=== PATIENT | male | born 1960 | race Caucasian/White ===

== ENCOUNTER 2022-02-21 15:46 | Inpatient (IN) | payer MEDICAID ==
[~2022-02-21] VITALS: Ht 182.9 cm; Wt 61.2 kg
[2022-02-21] VITALS (9 sets, daily range): BP systolic 107–121; BP diastolic 50–68
--- NOTE | 2022-02-21 15:46 | NUR ---
(1540) ON OR ABOUT THIS TIME PATIENT INTUBATED BY DR. BULMARO CALERO; USING A GLIDESCOPE AN ENDOTRACHEAL TUBE #8.0; SUCCESSFUL INTUBATION; CONFIRMATION VIA CO2 DETECTOR (YELLOW); AUSCULTATION BY ERICD TO THE BILATERAL LUNG KHAN APEX TO MID THE ABDOMINAL REGION; CHEST XRAY TO FOLLOW
--- NOTE | 2022-02-21 15:46 | NUR ---
(0842) DR. BULMARO CARTY AT BEDSIDE PATIENT ASSESSMENT
--- NOTE | 2022-02-21 15:46 | NUR ---
(1533) MOTION PICTURE DIRECTOR CALLED TO BEDSIDE ADMITTING DX: SOB (EMR BAGGING) AND POSSIBLE INTUBATION
[2022-02-21] MEDS ORDERED: PROPOFOL 1000 MG/100 ML PREMIX 100 ML IV ONE ×3 (15:50→17:20)
[2022-02-21] MEDS ORDERED: SUCCINYLCHOLINE CHLORIDE 200 MG/10 ML VIAL IVP ONE (15:55)
[2022-02-21] MEDS ORDERED: ETOMIDATE 20 MG/10 ML VIAL IVP ONE (15:55)
[2022-02-21 16:24] LABS: BASOPHILS # (AUTO) 0.1 K/uL (0.00-0.22); BASOPHILS % (AUTO) 0.2 % (0.0-2.0); HEMOGLOBIN 9.1 g/dL (12.0-18.0); PLATELET COUNT (AUTO) 232 K/uL (140-450)
[2022-02-21 16:40] LABS: EOSINOPHILS # (AUTO) 0.1 K/uL (0-0.4); EOSINOPHILS % (AUTO) 0.3 % (0.0-4.0); LYMPHOCYTES % (AUTO) 3.8 % (20.5-51.1); MEAN CORPUSCULAR HEMOGLOBIN 30 pg (27-31); MEAN CORPUSCULAR HGB CONC 34 g/dL (33-37); MEAN CORPUSCULAR VOLUME 89.3 fL (80-94); MONOCYTES # (AUTO) 1.5 K/uL (0.8-1.0); MONOCYTES % (AUTO) 5.7 % (1.7-9.3); NEUTROPHILS # (AUTO) 23.3 K/uL (1.8-7.7); RED BLOOD CELL COUNT(AUTO) 3.03 MIL/uL (4.20-6.10)
[2022-02-21 16:42] LABS: PROTHROMBIN TIME 12.4 secs (10.8-13.4)
[2022-02-21 16:45] LABS: ALBUMIN 2.2 g/dL (3.4-5.0); ANION GAP 18.7 (8-16); CARBON DIOXIDE 25.7 mmol/L (21-32); POTASSIUM 4.4 mmol/L (3.5-5.1); TOTAL BILIRUBIN 3.3 mg/dL (0.0-1.0)
[2022-02-21 16:47] LABS: CREATININE 4.7 mg/dL (0.6-1.3)
[2022-02-21 16:49] LABS: MAGNESIUM 2.4 mg/dL (1.8-2.4); PHOSPHORUS 3.6 mg/dL (2.5-4.9); WHITE BLOOD COUNT (AUTO) 25.9 K/uL (4.8-10.8)
[2022-02-21 16:50] LABS: ACETAMINOPHEN < 0.5 ug/ml (10-30)
[2022-02-21 16:51] LABS: SALICYLATE < 2.8 mg/dL (2.8-20.0)
[2022-02-21] MEDS ORDERED: VANCOMYCIN 1,000 MG in DEXTROSE 5% 250 ML IV ONE (17:00)
[2022-02-21] MEDS ORDERED: PIPERACILLIN/TAZOBACTAM 2.25 GM in DEXTROSE 5% 50 ML IV ONE (17:00)
--- NOTE | 2022-02-21 17:04 | NUR ---
urine collected from bed 01 murguia
[2022-02-21] MEDS ORDERED: POTASSIUM CHLORIDE 10 MEQ TABER PO PRN (17:10)
[2022-02-21] MEDS ORDERED: HYDROcodone/APAP 7.5/325 MG 1 TAB PO PRN (17:10)
[2022-02-21] MEDS ORDERED: ZOLPIDEM 5 MG TAB PO PRN (17:10)
[2022-02-21] MEDS ORDERED: POTASSIUM CHLORIDE 40 MEQ, LIDOCAINE MPF 1% 25 MG in NACL 0.9% 250 ML IV PRN (17:10)
[2022-02-21] MEDS ORDERED: DOCUSATE SODIUM 100 MG GELCAP PO PRN (17:10)
[2022-02-21] MEDS ORDERED: PIPERACILLIN/TAZOBACTAM 2.25 GM VIAL IV ONE (17:16)
[2022-02-21] MEDS ORDERED: DEXTROSE 50% 50 ML SYR IVP PRN ×2 (17:20→21:55)
[2022-02-21] MEDS ORDERED: hydrALAZINE 20 MG/ML VIAL IVP PRN (17:20)
[2022-02-21] MEDS ORDERED: VANCOMYCIN PER PHARMACY MC PRN (17:20)
[2022-02-21] MEDS ORDERED: INSULIN LISPRO SLIDING SCALE 100 UNITS/ML VIAL SUBQ PRN (17:20)
[2022-02-21 17:24] LABS: APPEARANCE,URINE CLEAR (CLEAR); BILIRUBIN,URINE 2+ (NEGATIVE); BLOOD, URINE 1+ (NEGATIVE); COLOR,URINE BROWN (YELLOW); LEUKOCYTE ESTERASE ,URINE TRACE (NEGATIVE); NITRITE, URINE POSITIVE (NEGATIVE); UGLUCOSE TRACE (NEGATIVE)
[2022-02-21 17:37] LABS: MAGNESIUM 2.3 mg/dL (1.8-2.4); PHOSPHORUS 3.6 mg/dL (2.5-4.9)
[2022-02-21 17:43] LABS: RBC,URINE 0-5 /HPF (0-5); WBC,URINE 0-5 /HPF (0-5); YEAST,URINE Few /HPF (None Seen)
--- NOTE | 2022-02-21 18:15 | NUR ---
FAMILY AT BEDSIDE
--- NOTE | 2022-02-21 19:01 | NUR ---
61Y.O. M BIBA C/O SOB/AGANAL BREATHING. PT BEING BAGGED ON ARRIVAL 15L. GCS:3. PER FAMILY PT WAS TESTED FOR COVID; UNKNOWN RESULT. PT HAS DIALYSIS MWF. PT UNRESPONSIVE ON ARRIVAL. SKIN WAS COOL PALE AND STICKY. PICC R UPPER ARM. BS: 186 PER EMS. A&OX0, SKIN HAS BRUISING AND PRESSURE INJURIES, VITALS STABLE AT THIS TIME, AND ON BED REST. NKA HX: HTN, DM, RENAL FAILURE (ERSD)
--- NOTE | 2022-02-21 19:48 | NUR ---
Patient will be admitted to care of DR. COYLE. Admited to ICU. Will go to BED 3. Belongings list completed. Report to JOSIAS.
--- NOTE | 2022-02-21 19:50 | NUR ---
RECEIVED REPORT FROM ER NURSE (VERONICA). PATIENT ARRIVED ON GURNEY, INTUBATED (ETT TO VENT) ON PROPOFOL DRIP AT 25MCG/MIN. PATIENT ALSO WITH OG TUBE. PATIENT HAS ACBA IN PLACE. PATIENT WITH PICC LINE CHAD, MONY CATH RIGHT UPPER CHEST WALL, AND PERIPHERAL IV, 18G, LEFT AC. HAS SACRAL PRESSURE ULCER, AND LEFT HEEL ULCER. CURRENT VENT SETTINGS: AC/VC, FIO2 = 80%, VT = 500, R = 16, PEEP = 5.
[2022-02-21] MEDS: ALBUTEROL SULFATE/IPRATROPIU 3 ML SOL IH SCH (20:29)
[2022-02-21] MEDS ORDERED: VANCOMYCIN 1,000 MG VIAL ONE (20:54)
[2022-02-21] MEDS ORDERED: PIPERACILLIN/TAZOBACTAM 2.25 GM in DEXTROSE 5% 50 ML IV SCH (21:00)
--- NOTE | 2022-02-21 21:10 | NUR ---
FAMILY AT BEDSIDE, ALL QUESTIONS ANSWERED DTGLENN Frederick: [phone] (CELL) : JAMISON LÓPEZ, (CELL)
[2022-02-21] MEDS: BLOOD GLUCOSE MONITORING 1 DEV DEV FS SCH (21:29)
--- NOTE | 2022-02-21 22:15 | NUR ---
RECEIVED CALL FROM LAB; ORDERED COVID - PCR TEST. DUE TO NEW COVID TEST BEING REQUESTED FOR PATIENT; HE WAS TRANSFERRED TO ICU-8 AND IS LISTED PUI UNTIL RESULTS COME BACK PATIENT HAD NEGATIVE COVID (RAPID TEST) IN ER. SWABBED PATIENT FOR UPDATED COVID, AND SPECIMEN WAS TAKEN TO THE LAB FOR PICK-UP AND TRANSPORT TO OUTSIDE LAB.
[2022-02-21] MEDS: ALBUTEROL SULFATE/IPRATROPIU 3 ML SOL IH PRN (23:06)
--- NOTE | 2022-02-21 23:21 | NUR ---
ekg performed and reported to rn copy placed in chart copy handed to rn
--- NOTE | 2022-02-21 23:30 | NUR ---
RT PERFORMED EKG AT BEDSIDE = SHOWS NORMAL SINUS RHYTHM, WITH LEFT BUNDLE BRANCH BLOCK
[2022-02-22] VITALS (30 sets, daily range): BP systolic 95–133; BP diastolic 49–61
--- NOTE | 2022-02-22 | NUR ---
PER EMAR, PATIENT WAS DUE FOR ZOSYN 2.25GM AT 2100; HOWEVER PER EMAR DOCUMENTATION, MEDICATION WAS LAST GIVEN AT 1754. MEDICATION IS SCHEDULED FOR Q8HRS. PHONE CALL PLACED TO [facility] AND SPOKE WITH PHARMACISTCIARA TO REQUEST A TIME ADJUSTMENT. NEXT DOSE IS NOW DUE AT 0200. CHANGE TO BE REFLECTED IN EMAR
[2022-02-22] MEDS ORDERED: PIPERACILLIN/TAZOBACTAM 2.25 GM VIAL IV ONE (02:11)
[2022-02-22] MEDS: PIPERACILLIN/TAZOBACTAM 2.25 GM in DEXTROSE 5% 50 ML IV SCH ×3 (02:24→17:55)
--- NOTE | 2022-02-22 04:49 | NUR ---
RT AT BEDSIDE VENT SETTINGS ADJUSTED FIO2 IS NOW 50%
--- NOTE | 2022-02-22 05:50 | NUR ---
RECEIVED CALL FROM DR. HAIRSTON; PROVIDED UPDATE ON PATIENT'S CURRENT STATUS; NO NEW ORDERS PROVIDED
[2022-02-22 07:15] LABS: BASOPHILS # (AUTO) 0.1 K/uL (0.00-0.22); BASOPHILS % (AUTO) 0.2 % (0.0-2.0); EOSINOPHILS # (AUTO) 0.1 K/uL (0-0.4); EOSINOPHILS % (AUTO) 0.4 % (0.0-4.0); HEMATOCRIT 29.5 % (36-52); HEMOGLOBIN 9.8 g/dL (12.0-18.0); LYMPHOCYTES # (AUTO) 1.1 K/uL (2.0-11.5); LYMPHOCYTES % (AUTO) 3.2 % (20.5-51.1); MEAN CORPUSCULAR HEMOGLOBIN 30 pg (27-31); MEAN CORPUSCULAR HGB CONC 33 g/dL (33-37); MEAN CORPUSCULAR VOLUME 89.5 fL (80-94); MONOCYTES # (AUTO) 1.5 K/uL (0.8-1.0); MONOCYTES % (AUTO) 4.4 % (1.7-9.3); NEUTROPHILS # (AUTO) 30.9 K/uL (1.8-7.7); NEUTROPHILS % (AUTO) 91.8 % (42.2-75.2); PLATELET COUNT (AUTO) 254 K/uL (140-450)
--- NOTE | 2022-02-22 07:20 | NUR ---
RECEIVED PT ON ACVC TV500, RR16, +5, 50%. WHEELS LOCKED AND PLUGGED INTO RED OUTLET, ALARMS ARE SET AND AUDIBLE. PT RESTING COMFORTABLY.
[2022-02-22] MEDS: ALBUTEROL SULFATE/IPRATROPIU 3 ML SOL IH SCH ×3 (07:21→19:00)
[2022-02-22 07:22] LABS: WHITE BLOOD COUNT (AUTO) 33.7 K/uL (4.8-10.8)
--- NOTE | 2022-02-22 07:25 | NUR ---
RECEIVED REPORT FROM JOEL KENNEL HELPER RN, FOR CONTINUITY OF CARE. PT A&OX0, SEDATED. PUPILS SLUGGISH RESPONSE TO LIGHT. ETT TO VENT, ACVC FIO2 50%, VT 500, PEEP 5. SR ON MONITOR. PICC TO CHAD INFUSING PROPOFOL AT 25 MCG/KG/MIN. 18G IV TO LAC, SALINE LOCK. OGT IN PLACE, CLAMPED. BOWEL SOUNDS ACTIVE. F/C TO GRAVITY, OLIGURIA. GENERALIZED WEAKNESS. SOFT WRIST RESTRAINTS TO BUE NO S/S OF INJURY. DROPLET PRECAUTION FOR COVID PUI. BED IN LOWEST POSITION, CALL LIGHT WITHIN REACH.
--- NOTE | 2022-02-22 07:27 | NUR ---
ENDORSED PATIENT TO DAY SHIFT (NEVIN GILLESPIE)
[2022-02-22 07:28] LABS: ANION GAP 18.3 (8-16); CARBON DIOXIDE 24.7 mmol/L (21-32)
[2022-02-22] MEDS: BLOOD GLUCOSE MONITORING 1 DEV DEV FS SCH ×5 (07:30→21:12)
[2022-02-22 08:28] LABS: CREATININE 5.2 mg/dL (0.6-1.3)
[2022-02-22] MEDS: PANTOPRAZOLE 40 MG TABEC PO SCH (08:29)
[2022-02-22] MEDS: lisinopriL 20 MG TAB PO SCH (08:29)
[2022-02-22] MEDS: VIT-B COMP/VIT-C/FOLIC ACID 1 TAB PO SCH (08:29)
[2022-02-22] MEDS: amLODIPine 5 MG TAB PO SCH (08:30)
[2022-02-22] MEDS: carvediloL 12.5 MG TAB PO SCH ×2 (08:30→21:12)
[2022-02-22] MEDS: ASPIRIN 81 MG TAB.CHEW PO SCH (08:30)
[2022-02-22] MEDS: hydrALAZINE 25 MG TAB PO SCH ×2 (08:30→21:12)
--- NOTE | 2022-02-22 09:12 | NUR ---
PATIENT HAS BEEN SCREENED AND CATEGORIZED HIGH NUTRITION RISK. PATIENT WILL BE SEEN WITHIN 1-2 DAYS OF ADMISSION. REFERRAL RECEIVED FOR WOUNDS/PRESSURE INJURY AND MALNUTRITION MINH GARCIA RD
--- NOTE | 2022-02-22 09:30 | NUR ---
SEEN AND EXAMINED BY DR. COYLE.
[2022-02-22] MEDS ORDERED: THERAHONEY GEL 42.5 GM TP PRN (11:25)
--- NOTE | 2022-02-22 12:00 | NUR ---
DR. DRIVER AT BEDSIDE. HD ORDERS RECEIVED.
[2022-02-22] MEDS: THERAHONEY GEL 42.5 GM TP SCH (13:00)
[2022-02-22] MEDS: GAUZE TP SCH (13:00)
--- NOTE | 2022-02-22 13:57 | NUR ---
02/22/22 RD INITIAL ASSESSMENT COMPLETED PLEASE REFER TO NUTRITION ASSESSMENT UNDER CARE ACTIVITY FOR ESTIMATED NUTRITIONAL NEEDS. 1. WHEN/IF MEDICALLY APPROPRIATE TO INITIATE TF, RECOMMEND NEPRO CARBSTEADY WITH A GOAL RATE OF 50 ML/HR WITH PROSOURCE TID -FWF: 50 ML Q8H OR PER MD -START AT 20 ML/HR AND INCREASE BY 10 ML Q4H TOLERATED -WITH PROSOURCE TID, PT WILL RECEIVE ~94% ESTIMATED KCAL AND 100% ESTIMATED PROTEIN NEEDS; ADEQUATE 2. IF EXTUBATED, RECOMMEND RENAL DIET WITH NEPRO BID 3. RD TO FOLLOW-UP 2-3 DAYS, HIGH RISK MINH GARCIA RD
--- NOTE | 2022-02-22 14:20 | NUR ---
FAMILY AT BEDSIDE. UPDATED ON POC. NO FURTHER QUESTIONS AT THIS TIME.
--- NOTE | 2022-02-22 14:40 | NUR ---
WOUND CARE EVALUATION NOTE: SKIN ASSESSMENT DONE WITH THIS PT ADMITTED WITH INITIAL DX SOB. PAST MEDICAL HX INCLUDES ESRD on HD (MWF), DM2 AND HTN. PT ADMITTED WITH PRESSURE INJURY STAGE 3 TO SACRAL AND UN-STAGEABLE TO LEFT HEEL. ALL ABOVE INFORMATION OBTAINED FROM ADMISSION H&P. PT IS INTUBATED, TF, SKIN IS WARM AND DRY, BLE NO HAIR GROWTH, +1 EDEMA. DORSAL PEDAL PULSES PRESENT AND NORMAL. CAPILLARY REFILLED <2 SEC. X 10 TOES. F/C PATENT WITH SMALL AMOUNT TRAMAINE COLOR URINE OUT PUT OBSERVED. PLAN OF CARE DISCUSSED WITH PRIMARY RN. POC DISCUSSED WITH DR. COYLE AND REQUEST IN HOUSE PODIATRY CONSULT. INTEGUMENTARY: -INCONTINENT ASSOCIATE DERMATITIS (IAD) TO: B/L GROINS, INNER THIGH AND POSTERIOR THIGH TO SCROTAL, SKIN REDNESS, PEELING -PRESSURE INJURY STAGE 3, SACROCOCCYX 5X2X0.3CM, BED IS RED 100% GRANULATING TISSUE, MOIST, NO ODOR, CHARLENE-WOUND SKIN MOIST, HEALING SCAR TISSUE, SURROUNDING NON-BLANCHABLE REDNESS INDICATED FURTHER DAMAGE - PRESSURE INJURY UN-STAGEABLE, LEFT HEEL 5X4CM WOUND BED IS RED 100% BROWN/BLACK SLOUGH TISSUE, SMALL AMOUNT PURULRNT DRAINAGE, MILD ODOR, ENTIRE CHARLENE WOUND MUSHY, DENUDED SKIN WITH SURROUNDING DTI [id number] INDICATED FURTHER DAMAGE RECOMMENDATIONS: -WOUND CX TO SACRAL AND LEFT HEEL -APPLY HEEL RAISERS AND OFFLOAD HEELS WITH PILLOWS -LEFT HEEL APPLY MOIST BETADINE [id number], COVER WITH DRY DRESSING AND WRAP WITH KERLIX ROLLS DAILY AND PRN IF SOILING -CLEANSE SACRAL WOUND WITH NS, PAT DRY, APPLY THERAHONEY GEL TO WOUND BED AND COVER WITH DRY DRESSING DAILY AND PRN IF SOILING. -POSITIONING: TURN AND REPOSITION PATIENT Q 2H OR SOONER USE PILLOWS TO KEEP BONY PROMINENCES FROM DIRECT CONTACT WITH SURFACES USE REPOSITIONING WEDGES TO PROVIDE 30-DEGREE ANGLE FOR SIDE LYING POSITIONS OFFLOADING OR FOAM DRESSING TO ALL TUBING TO PREVENT MEDICAL DEVICES RELATED PRESSURE INJURY -RE-EVALUATING AND MANAGING INCONTINENCE MONITOR SKIN CONDITION DURING POSITION CHANGE DO NOT MASSAGE REDNESS, BONY PROMINENCES FREQUENT CHARLENE-CARE AND PROVIDE BARRIER CREAMS PRN IF SOILING MOISTURE CONTROL BY OFFER BED LUGO/URINAL /ABSORBENT PAD TO WICK AND HOLD MOISTURE KEEP SKIN DRY AND PROTECT FROM FRICTION -MANAGE FRICTION/SHEAR/MOBILITY KEEP HOB AT THE LOWEST LEVEL OF ELEVATION NO MORE THAN 30 DEGREE UNLESS OTHERWISE CONTRAINDICATED USE LIFT SHEET OR TRANSFER DEVICE TO MOVE PATIENT AND PREVENT LATERAL SHEER. PROTECT HEELS, ELBOWS BONY PROMINENCES WITH SKIN BERRIES OR FOAM DRESSING IF EXPOSED TO FRICTION OFFLOAD BILATERAL HEELS BY PLACING PILLOWS UNDER CALVES AT ALL TIMES, UNLESS OTHERWISE CONTRAINDICATED -PRESSURE REDISTRIBUTION SURFACE THERAPY LU ISOFLEX MATTRESS -NUTRITION: PLEASE FOLLOW RD RECOMMENDATIONS AND OFFER NUTRITION SUPPLEMENTS IF ORDERED.
--- NOTE | 2022-02-22 14:41 | NUR ---
DAUGHTER GLENN VISIT OUTSIDE OF PT. RM. PT. WOUND HX OBTAINED FROM DAUGHTER, PER DAUGHTER LEFT HEEL HX OF DEBRIDEMENT AT [facility] BY DR. PORTIA RYDER AND PT. HAS JUST FINISHED A COURSE OF IV ANTIBIOTIC RECENTLY, PER DAUGHTER SHE PROVIDES WOUND CARE AT HOME BUT NO SANTYLE OINTMENT AVAILABLE DUE TO PRICING AND LEFT HEEL /SACRAL WOUNDS DOES"T REALLY HEAL WELL. TREATMENT PLAN DISCUSSED AND AGREEABLE WITH KASSIE ALEXANDER. POC DISCUSSED WITH DR. COYLE, ALL ABOVE INFORMATION DISCUSSED AND RECOMMEND PODIATRY CONSULT. POC DISCUSSED WITH PRIMARY RN CELSO.
[2022-02-22] MEDS: EPOETIN ALFA-EPBX 10,000 UNITS/ML VIAL SUBQ SCH (14:57)
--- NOTE | 2022-02-22 17:25 | NUR ---
DIALYSIS FINISHED. REMOVED 1.3 L. PT TOLERATED WELL.
--- NOTE | 2022-02-22 18:38 | NUR ---
SEEN AND EXAMINED BY DR. BENTON FOR L FOOT ULCER. ORDERED TO CLEANSE WITH IODINE, WRAP WITH GAUZE, AND ELEVATE HEEL ON PILLOW TO OFFLOAD PRESSURE.
--- NOTE | 2022-02-22 18:48 | NUR ---
XRAY AT BEDSIDE FOR FOOT XRAY.
--- NOTE | 2022-02-22 19:15 | NUR ---
ENDORSED REPORT TO CORPORATE EXECUTIVE NEVIN NEWTON FOR CONTINUITY OF CARE.
--- NOTE | 2022-02-22 19:30 | NUR ---
RECEIVED REPORT FROM CELSO. PT IN STATED CONDITION PT WAS INTUBATED IN THE ED . HE'S SEDATED PRESENTLY ON PROPOFOL @25MCG/KG.HE IS AT A RASS -4 PROPOFOL IS FINISHED.IT WAS A ONE TIME ORDER AND HAD TO BE REORDERED BY MAHSA QUIÑONES NURSE. HE HAS A CHAD PICC LINE AND A LAC 18 GUAGE. HE HAS NS INFUSING AT A KVO RATE. HE IS TOLERATING THE VENT WELL. HE IS IN SOFT WRIST RESTRAINTS. HE HAS A CABA CATH IN PLACE WITH NO OUTPUT. HE HAD DIALYSIS ON 02/21/22 AND CAME TO THE ED S/P DIALYSIS DUE TO AGONAL BREATHING. HE WAS ENTUBATED INN THE ED TO PROTECT HIS AIRWAY.
[2022-02-22] MEDS: PROPOFOL 1000 MG/100 ML PREMIX 100 ML IV PRN (21:00)
--- NOTE | 2022-02-22 21:00 | NUR ---
PROPOFOL WAS STARTED AT 15MCG AND PT IS AT A RASS OF -3.
--- NOTE | 2022-02-22 23:30 | NUR ---
PER RT PT IS NOW AT FIO2 28% AND TOLERATING THE CHANGE WELL.
[2022-02-23] VITALS (33 sets, daily range): BP systolic 104–130; BP diastolic 47–87
[2022-02-23] MEDS: PIPERACILLIN/TAZOBACTAM 2.25 GM in DEXTROSE 5% 50 ML IV SCH ×3 (02:00→18:27)
[2022-02-23] MEDS ORDERED: EPINEPHrine PFS 0.1 MG/ML SYR IVP ONE (06:05)
[2022-02-23] MEDS ORDERED: CODE BLUE PARTICIPANT 1 EA MISC MC ONE (06:05)
--- NOTE | 2022-02-23 06:07 | NUR ---
PT HAD AN EPISODE,HIS R\HEART RATE DROPPED TO 32. AND THE PT HAD A BLUISH HEW ABOUT HIS FACE . HE OPENED HIS EYES AND THEY ROLLED BACK AND HE SLUMPED.CODE WAS CALLED AND HE RERTURNED TO HR0F IOO AFTER CPR AND 1 ROUND OF EPPY.
[2022-02-23 06:18] LABS: HEMOGLOBIN 9.7 g/dL (12.0-18.0); MEAN CORPUSCULAR HEMOGLOBIN 30 pg (27-31); MEAN CORPUSCULAR HGB CONC 33 g/dL (33-37); MEAN CORPUSCULAR VOLUME 88.8 fL (80-94); PLATELET COUNT (AUTO) 287 K/uL (140-450); RED BLOOD CELL COUNT(AUTO) 3.27 MIL/uL (4.20-6.10)
[2022-02-23 06:21] LABS: ANION GAP 15.8 (8-16); CARBON DIOXIDE 24.2 mmol/L (21-32); CREATININE 3.5 mg/dL (0.6-1.3)
[2022-02-23 06:37] LABS: WHITE BLOOD COUNT (AUTO) 25.8 K/uL (4.8-10.8)
[2022-02-23 06:56] LABS: EOSINOPHILS % (MANUAL) 1 % (0-4); LYMPHOCYTES % (MANUAL) 5 % (20-46); MONOCYTES % (MANUAL) 2 % (5-12)
--- NOTE | 2022-02-23 07:30 | NUR ---
RECEIVED REPORT FROM NIGHT NEVIN NEWTON FOR CONTINUITY OF CARE. A&OX0, SEDATED ON PROPOFOL. ETT TO VENT FIO2 26%, VT 500, RR 16, PEEP 5. PICC TO CHAD INFUSING PROPOFOL AT 15 MCG/KG/MIN. 18G IV TO LAC, SALINE LOCK. OGT CLAMPED. BOWEL SOUNDS ACTIVE. F/C TO GRAVITY, NO URINE OUTPUT. GENERALIZED WEAKNESS. STANDARD PRECAUTION. CALL LIGHT WITHIN REACH. BED IN LOWEST POSITION.
[2022-02-23 07:46] LABS: BASOPHILS # (AUTO) 0.1 K/uL (0.00-0.22); BASOPHILS % (AUTO) 0.2 % (0.0-2.0); EOSINOPHILS # (AUTO) 0.3 K/uL (0-0.4); EOSINOPHILS % (AUTO) 1.3 % (0.0-4.0); HEMATOCRIT 30.1 % (36-52); HEMOGLOBIN 9.9 g/dL (12.0-18.0); LYMPHOCYTES # (AUTO) 0.7 K/uL (2.0-11.5); LYMPHOCYTES % (AUTO) 2.8 % (20.5-51.1); MEAN CORPUSCULAR HEMOGLOBIN 30 pg (27-31); MEAN CORPUSCULAR HGB CONC 33 g/dL (33-37); MONOCYTES # (AUTO) 1.4 K/uL (0.8-1.0); MONOCYTES % (AUTO) 5.4 % (1.7-9.3); NEUTROPHILS # (AUTO) 23.7 K/uL (1.8-7.7); NEUTROPHILS % (AUTO) 90.3 % (42.2-75.2); PLATELET COUNT (AUTO) 276 K/uL (140-450); RED BLOOD CELL COUNT(AUTO) 3.35 MIL/uL (4.20-6.10); RED CELL DISTRIBUTION WIDTH 15.7 % (11.6-13.7)
[2022-02-23 07:50] LABS: WHITE BLOOD COUNT (AUTO) 26.3 K/uL (4.8-10.8)
[2022-02-23 07:53] LABS: ANION GAP 17.7 (8-16); CARBON DIOXIDE 23.5 mmol/L (21-32); CREATININE 3.8 mg/dL (0.6-1.3); POTASSIUM 4.2 mmol/L (3.5-5.1)
[2022-02-23] MEDS: BLOOD GLUCOSE MONITORING 1 DEV DEV FS SCH ×4 (08:02→21:29)
[2022-02-23] MEDS: ASPIRIN 81 MG TAB.CHEW PO SCH (08:12)
[2022-02-23] MEDS: amLODIPine 5 MG TAB PO SCH (08:12)
[2022-02-23] MEDS: PANTOPRAZOLE 40 MG TABEC PO SCH (08:12)
[2022-02-23] MEDS: carvediloL 12.5 MG TAB PO SCH ×2 (08:12→21:31)
[2022-02-23] MEDS: VIT-B COMP/VIT-C/FOLIC ACID 1 TAB PO SCH (08:12)
[2022-02-23] MEDS: lisinopriL 20 MG TAB PO SCH (08:13)
[2022-02-23] MEDS: hydrALAZINE 25 MG TAB PO SCH ×2 (08:13→21:31)
[2022-02-23] MEDS: ALBUTEROL SULFATE/IPRATROPIU 3 ML SOL IH SCH ×3 (08:45→19:18)
--- NOTE | 2022-02-23 08:54 | NUR ---
LAC IV FOUND TO BE REMOVED D/T PT MOVING AROUND. INSERTED 20G IV TO L FOREARM. PATENT, INTACT. SALINE LOCK.
[2022-02-23] MEDS ORDERED: VANCOMYCIN 1,000 MG in DEXTROSE 5% 250 ML IV SCH (10:00)
[2022-02-23 10:59] LABS: ALBUMIN 1.9 g/dL (3.4-5.0); BILIRUBIN,DIRECT 1.7 mg/dL (0.0-0.3); TOTAL BILIRUBIN 2.5 mg/dL (0.0-1.0)
--- NOTE | 2022-02-23 11:50 | NUR ---
PT TRANSFERRED TO CT FOR ABD/PELVIS CT W/O CONTRAST.
--- NOTE | 2022-02-23 11:59 | NUR ---
PT BACK ON UNIT. VSS.
--- NOTE | 2022-02-23 12:30 | NUR ---
SACRAL WOUND CLEANSED WITH NS SPRAY AND APPLIED THERA-HONEY AND FOAM DRESSING. FOOT WOUND CLEANSED WITH IODINE AND WRAPPED IN GAUZE DRESSING ORDERED BY DR. BENTON. BOTH SACRAL DRESSING AND FOOT DRESSING CHANGED. PT TURNED AND REPOSITIONED WITH BIBI ROONEY. ALL COMFORT NEEDS MET AT THIS TIME.
[2022-02-23] MEDS: GAUZE TP SCH (13:00)
[2022-02-23] MEDS: THERAHONEY GEL 42.5 GM TP SCH (13:00)
--- NOTE | 2022-02-23 13:25 | NUR ---
DAUGHTER GLENN AT BEDSIDE. UPDATED ON POC. NO FURTHER QUESTIONS AT THIS TIME.
--- NOTE | 2022-02-23 14:00 | NUR ---
PT IS ABLE TO FOLLOW COMMANDS WHEN SPOKEN TO IN [place] ONLY. 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 PT ABLE TO RESPOND APPROPRIATELY TO YES OR NO QUESTIONS IN ECUADOREAN. SQUEEZES HAND WHEN ASKED.
[2022-02-23] MEDS: PROPOFOL 1000 MG/100 ML PREMIX 100 ML IV PRN (18:30)
--- NOTE | 2022-02-23 19:15 | NUR ---
ENDORSED REPORT TO NIGHT NEVIN NEWTON FOR CONTINUITY OF CARE.
--- NOTE | 2022-02-23 19:30 | NUR ---
RECEIVED REPORT FROM CELSO ROONEY. PT RECEIVED IN STATED CONDITION. PT'S DAUGHTER AT THE BEDSIDE. WHE SHE SPEAKS TO HER FATHER IN [place] HE FOLLOWS COMMANDS. PT IS STRUGGLING WITH THE RESTRAINTS; TRYING TO REACH THE ETT TUBE. HE REMAINS ON THE PRIOR VENT SETTING FIO2 26%. PEEP5, TIDAL VOL 500 AND A RATE OF 16 NO DISTRESS NOTE .
--- NOTE | 2022-02-23 21:00 | NUR ---
DAUGHTER STATES HER FATHER IS ITCHING AND HE'S BLIND FOR THE PASS [address] MILLS WAS TEXT AND INFORMED., HE GAVE ORDERS FOT THE ITCHING. PROPOFOL TUBING CHANGED PER PROTOCOL.
[2022-02-23] MEDS ORDERED: diphenhydrAMINE 50 MG/ML VIAL IVP PRN (22:25)
[2022-02-24] VITALS (29 sets, daily range): BP systolic 116–147; BP diastolic 52–69
[2022-02-24] MEDS: PIPERACILLIN/TAZOBACTAM 2.25 GM in DEXTROSE 5% 50 ML IV SCH ×2 (01:56→11:12)
[2022-02-24 05:45] LABS: BASOPHILS # (AUTO) 0.1 K/uL (0.00-0.22); BASOPHILS % (AUTO) 0.3 % (0.0-2.0); EOSINOPHILS # (AUTO) 0.5 K/uL (0-0.4); EOSINOPHILS % (AUTO) 2.6 % (0.0-4.0); HEMATOCRIT 29.4 % (36-52); HEMOGLOBIN 9.8 g/dL (12.0-18.0); LYMPHOCYTES # (AUTO) 0.9 K/uL (2.0-11.5); LYMPHOCYTES % (AUTO) 4.7 % (20.5-51.1); MEAN CORPUSCULAR HEMOGLOBIN 30 pg (27-31); MEAN CORPUSCULAR HGB CONC 33 g/dL (33-37); MEAN CORPUSCULAR VOLUME 89.3 fL (80-94); MONOCYTES # (AUTO) 1.3 K/uL (0.8-1.0); MONOCYTES % (AUTO) 6.8 % (1.7-9.3); NEUTROPHILS # (AUTO) 16.4 K/uL (1.8-7.7); PLATELET COUNT (AUTO) 319 K/uL (140-450); RED CELL DISTRIBUTION WIDTH 15.7 % (11.6-13.7); WHITE BLOOD COUNT (AUTO) 19.1 K/uL (4.8-10.8)
[2022-02-24 06:35] LABS: ANION GAP 19.4 (8-16); CARBON DIOXIDE 21.8 mmol/L (21-32); POTASSIUM 4.2 mmol/L (3.5-5.1)
[2022-02-24 06:38] LABS: NEUTROPHILS % (AUTO) 85.6 % (42.2-75.2)
[2022-02-24 06:41] LABS: CREATININE 4.6 mg/dL (0.6-1.3)
--- NOTE | 2022-02-24 07:25 | NUR ---
RECEIVED REPORT FROM PHOTOGRAPHER LAMAR RN FOR CONTINUITY OF CARE. PT ABLE TO ANSWER YES OR NO QUESTIONS AND GESTURE TO MAKE NEEDS KNOWN. SEDATED ON PROPOFOL. ETT TO VENT FIO2 26%, VT 500, RR 16, PEEP 5. RESPIRATIONS EVEN AND UNLABORED. SINGLE LUMEN PICC TO CHAD INFUSING PROPOFOL AT 15 MCG/KG/MIN. PATENT IV IN L WRIST INFUSING NS TKO. OGT IS IN PLACE AND CLAMPED. MODERATE WEAKNESS. BILATERAL SOFT WRIST RESTRAINTS, NO S/S OF INJURY. STANDARD PRECAUTION. CALL LIGHT WITHIN REACH, BED IN LOWEST POSITION.
[2022-02-24] MEDS: ALBUTEROL SULFATE/IPRATROPIU 3 ML SOL IH SCH ×3 (07:33→19:40)
--- NOTE | 2022-02-24 07:35 | NUR ---
PATIENT EXTUBATION DONE. VITALS STABLE, 02 AT 100% AT THIS TIME.
[2022-02-24] MEDS: BLOOD GLUCOSE MONITORING 1 DEV DEV FS SCH ×4 (07:40→21:00)
[2022-02-24] MEDS: lisinopriL 20 MG TAB PO SCH (08:17)
[2022-02-24] MEDS: ASPIRIN 81 MG TAB.CHEW PO SCH (08:18)
[2022-02-24] MEDS: hydrALAZINE 25 MG TAB PO SCH (08:18)
[2022-02-24] MEDS: VIT-B COMP/VIT-C/FOLIC ACID 1 TAB PO SCH (08:18)
[2022-02-24] MEDS: amLODIPine 5 MG TAB PO SCH (08:18)
[2022-02-24] MEDS: carvediloL 12.5 MG TAB PO SCH (08:19)
[2022-02-24] MEDS: PANTOPRAZOLE 40 MG TABEC PO SCH (08:19)
--- NOTE | 2022-02-24 09:15 | NUR ---
DR. COYLE AT BEDSIDE. ORDERS RECEIVED.
[2022-02-24] MEDS: PROPOFOL 1000 MG/100 ML PREMIX 100 ML IV PRN (11:29)
--- NOTE | 2022-02-24 11:30 | NUR ---
DAUGHTER AT BEDSIDE. UPDATED ON PLAN OF CARE.
--- NOTE | 2022-02-24 12:15 | NUR ---
SEEN AND EXAMINED BY DR. LOVING AT BEDSIDE.
--- NOTE | 2022-02-24 12:30 | NUR ---
SEEN AND EXAMINED BY DR. FOX AT BEDSIDE. ORDERS FOR HD TOMORROW RECEIVED.
[2022-02-24] MEDS ORDERED: hydrALAZINE 25 MG TAB PO SCH (13:00)
[2022-02-24] MEDS: THERAHONEY GEL 42.5 GM TP SCH (13:15)
[2022-02-24] MEDS: GAUZE TP SCH (13:15)
--- NOTE | 2022-02-24 15:00 | NUR ---
SEEN AND EXAMINED BY DR. HAIRSTON. NO NEW ORDERS.
--- NOTE | 2022-02-24 15:35 | NUR ---
PT TRANSFERRED TO CT WITH MONITOR.
--- NOTE | 2022-02-24 15:45 | NUR ---
PT BACK ON UNIT. VSS.
[2022-02-24] MEDS ORDERED: GENTAMICIN PER PHARMACY MC PRN (15:50)
--- NOTE | 2022-02-24 16:11 | NUR ---
STARTED TUBE FEEDING NEPRO AT 10 ML/HR WITH 150ML WATER FLUSH Q6H PER DR. COYLE. GOAL IS 60 ML/HR.
[2022-02-24] MEDS ORDERED: GENTAMICIN 100 MG in DEXTROSE 5% 100 ML IV SCH (17:00)
--- NOTE | 2022-02-24 17:22 | NUR ---
PT PLACED ON SBT CPAP 5 PS 10 AND FIO2 26% PER . NURSE AWARE. VENT ALARMS ON AND FUNCTIONING. WILL CONTINUE TO MONITOR.
[2022-02-24] MEDS ORDERED: GENTAMICIN 80 MG/2 ML VIAL ONE (17:46)
--- NOTE | 2022-02-24 18:21 | NUR ---
SPOKE TO AND UPDATED PHYSICIAN ON WEANING PARAMETERS AND STATUS. PHYSICIAN STATES TO EXTUBATE PT AT THIS TIME.
--- NOTE | 2022-02-24 18:21 | NUR ---
WEANING PARAMETERS NIF -[id number], VC 749ml, RSBI RANGING FROM 45-50, [id number]. PT ABLE TO FOLLOW SIMPLE COMMANDS. NURSE AWARE.
--- NOTE | 2022-02-24 18:40 | NUR ---
CALLED DAUGHTER, GLENN, TO UPDATE ON PT STATUS REGARDING CPAP TRIALS. NO FURTHER QUESTIONS AT THIS TIME.
--- NOTE | 2022-02-24 19:15 | NUR ---
ENDORSED REPORT TO TIRE CHANGER RN VAN FOR CONTINUITY OF CARE.
--- NOTE | 2022-02-24 19:29 | NUR ---
RECEIVED REPORT FROM AM SHIFT NURSE JOSE MIGUEL
--- NOTE | 2022-02-24 19:40 | NUR ---
PT EXTUBATED TO 2LN/C AT THIS TIME. NO STRIDOR B/S CLEAR. SCHEDULED HHN TX GIVEN AT THIS TIME. PT HAS SLIGHT DISCOMFORT OF THE THROAT. WILL MONITOR FOR COOL AEROSOL IF NEEDED.
--- NOTE | 2022-02-24 20:07 | NUR ---
CALLED AND NOTIFIED DAUGHTER GLENN OF PATIENT'S EXTUBATION.
[2022-02-24] MEDS: AMPICILLIN 2,000 MG in NACL 0.9% 100 ML IV SCH (20:29)
[2022-02-24] MEDS ORDERED: AMPICILLIN 2,000 MG in NACL 0.9% 100 ML IV SCH (21:00)
--- NOTE | 2022-02-24 21:30 | NUR ---
PATIENT ALERT AND ABLE TO ANSWER GENERAL QUESTIONS. PATIENT IS POLISH SPEAKING. LUNGS CLEAR TO AUSCULTATION. PATIENT EXTUBATED AT 1930 AND IS NOW ON NASAL CANULA 2L. NO SIGNS AND SYMPTOMS OF SOB. OGT TUBE TAKEN OUT. NPO DIET AT THIS TIME. SINUS RHYTHM. CHAD PICC LINE. LEFT WRIST 20 GAUGE. RIGHT IJ MONY CATHETER. LEFT HEEL WOUND, WRAP IS INTACT. PATIENT RESTING AND VS STABLE. NO S/SX OF PAIN AT THIS TIME.
--- NOTE | 2022-02-24 22:30 | NUR ---
PATIENT TOLERATING POST EXTUBATION WELL. ON NC 2L. VITALS STABLE.
[2022-02-25] VITALS (16 sets, daily range): BP systolic 131–149; BP diastolic 62–72
--- NOTE | 2022-02-25 02:30 | NUR ---
PT REPOSITIONED. DENIES ANY COMPLAINTS OF PAIN.
[2022-02-25 06:36] LABS: BASOPHILS # (AUTO) 0.1 K/uL (0.00-0.22); BASOPHILS % (AUTO) 0.7 % (0.0-2.0); EOSINOPHILS # (AUTO) 0.8 K/uL (0-0.4); EOSINOPHILS % (AUTO) 4.7 % (0.0-4.0); HEMATOCRIT 29.3 % (36-52); HEMOGLOBIN 9.6 g/dL (12.0-18.0); LYMPHOCYTES # (AUTO) 0.8 K/uL (2.0-11.5); LYMPHOCYTES % (AUTO) 5.1 % (20.5-51.1); MEAN CORPUSCULAR HEMOGLOBIN 29 pg (27-31); MEAN CORPUSCULAR HGB CONC 33 g/dL (33-37); MEAN CORPUSCULAR VOLUME 88.9 fL (80-94); MONOCYTES # (AUTO) 1.2 K/uL (0.8-1.0); MONOCYTES % (AUTO) 7.6 % (1.7-9.3); NEUTROPHILS # (AUTO) 13.4 K/uL (1.8-7.7); NEUTROPHILS % (AUTO) 81.9 % (42.2-75.2); PLATELET COUNT (AUTO) 339 K/uL (140-450); RED BLOOD CELL COUNT(AUTO) 3.29 MIL/uL (4.20-6.10); RED CELL DISTRIBUTION WIDTH 16.1 % (11.6-13.7); WHITE BLOOD COUNT (AUTO) 16.3 K/uL (4.8-10.8)
[2022-02-25 06:50] LABS: ANION GAP 23.7 (8-16); CARBON DIOXIDE 19.9 mmol/L (21-32); POTASSIUM 4.6 mmol/L (3.5-5.1)
[2022-02-25 06:55] LABS: CREATININE 5.5 mg/dL (0.6-1.3)
--- NOTE | 2022-02-25 07:30 | NUR ---
RECEIVED BEDSIDE REPORT FROM EKATERINA KIM RN FOR CONTINUITY OF CARE. PT SUPINE IN THE BED, AAOX3, MOHAWK SPEAKING. ON 2L NC. SR ON BEDSIDE MONITOR. CHAD PICC IN PLACE INFUSING NS TKO AT 5 ML/H. R IJ TUNNELED DIALYSIS CATHETER IN PLACE. HD SCHEDULED FOR TODAY. BOWEL SOUNDS ACTIVE, F/C IN PLACE, OLIGURIC. MODERATE WEAKNESS BUE BLE. L HEEL PRESSURE WOUND, SACRAL PRESSURE WOUND, SEE WOUND ASSESSMENT. CALL LIGHT WITHIN REACH. STANDARD ISOLATION. SAFETY PRECAUTIONS MET. INITIAL ASSESSMENT COMPLETE, WILL CONTINUE TO CLOSELY MONITOR.
--- NOTE | 2022-02-25 07:30 | NUR ---
REPORT GIVEN TO AM SHIFT NEVIN MONTANEZ.
[2022-02-25] MEDS: ALBUTEROL SULFATE/IPRATROPIU 3 ML SOL IH SCH ×2 (07:37→13:59)
[2022-02-25] MEDS: BLOOD GLUCOSE MONITORING 1 DEV DEV FS SCH ×4 (07:40→21:43)
--- NOTE | 2022-02-25 07:40 | NUR ---
ACCUCHECK 100, NO NEED FOR INSULIN COVERAGE.
--- NOTE | 2022-02-25 08:35 | NUR ---
PAGED CONTENT COORDINATOR SURGEON TO REPLACE HD CATHETER. WAITING FOR CALL BACK.
--- NOTE | 2022-02-25 08:40 | NUR ---
DR POSEY ROUNDING AT BEDSIDE. NO NEW ORDERS.
--- NOTE | 2022-02-25 09:10 | NUR ---
DR CAMPA ROUNDING AT BEDSIDE. NO NEW ORDERS.
[2022-02-25] MEDS ORDERED: PANTOPRAZOLE 40 MG INJ VIAL ONE (09:11)
[2022-02-25] MEDS: amLODIPine 5 MG TAB PO SCH (09:29)
[2022-02-25] MEDS: EPOETIN ALFA-EPBX 10,000 UNITS/ML VIAL SUBQ SCH (09:29)
[2022-02-25] MEDS: VIT-B COMP/VIT-C/FOLIC ACID 1 TAB PO SCH (09:29)
[2022-02-25] MEDS: ASPIRIN 81 MG TAB.CHEW PO SCH (09:29)
[2022-02-25] MEDS: lisinopriL 20 MG TAB PO SCH (09:30)
[2022-02-25] MEDS: AMPICILLIN 2,000 MG in NACL 0.9% 100 ML IV SCH ×2 (09:30→21:33)
[2022-02-25] MEDS: PANTOPRAZOLE 40 MG INJ VIAL IVP SCH (09:34)
--- NOTE | 2022-02-25 09:40 | NUR ---
AM MEDS ADMINISTERED ORDERED. NADR. WILL CONTINUE TO CLOSELY MONITOR
--- NOTE | 2022-02-25 10:36 | NUR ---
SPOKE WITH DR YOVANNY ZUNIGA MD. HE ORDERED TO CULTURE PICC TIP AND IJ MONY CATH TIP. OK FOR HD TODAY, AFTER HD REMOVE/CULTURE BOTH LINES. STILL WAITING FOR CALL BACK FROM SENIOR IT ARCHITECT SURGEON FOR HD CATHETER PLACEMENT.
--- NOTE | 2022-02-25 11:15 | NUR ---
SPOKE WITH PT DAUGHTER, GLENN GOLDMAN, VIA PHONE. UPDATED REGARDING PT CONDITION AND EXPLAINED THE NEED FOR DIALYSIS CATHETER REMOVAL AND REPLACEMENT. OBTAINED TELEPHONE CONSENT AND WITNESSED WITH KATHI ROONEY. ALL QUESTIONS ANSWERED AT THIS TIME. SHE SAYS SHE WILL COME VISIT IN APPROX 30 MIN.
--- NOTE | 2022-02-25 11:21 | NUR ---
SPOKE WITH DR ROBERTSON REGARDING HD CATHETER REMOVAL AND REPLACEMENT. HE SAYS WE WILL DO HD TODAY IN CURRENT IJ MONY CATH, AND WILL EXPECT A CALL BACK FROM US FOR HIM TO REMOVE IJ MONY CATH. HE SAYS HE WILL PLAN TO REINSERT TOMORROW.
--- NOTE | 2022-02-25 12:06 | NUR ---
DC PLANNING: ORDER RECEIVED FOR TRANSFER TO [facility] PER FAMILY REQUEST. LENY SPOKE WITH [facility], THEY ASKED THAT ORDER AND CLINICAL PACKET BE FAXED TO THEM FOR NURSING REVIEW AND APPROVAL. LENY ALSO SPOKE WITH [facility], NO ICU BEDS AT THIS TIME. CM WILL FOLLOW. Addendum: 02/26/22 at 1122 by Sarah Stuart CM DC PLANNING: THE PATIENT ADMITTED FROM HOME, LYNETTE WITH C/O RESPIRATORY DISTRESS, NOTED TO HAVE AGONAL BREATHING IN THE FIELD. H/O ESRD WITH HD, HTN AND DM. THE PATIENT WAS UNRESPONSIVE UPON ARRIVAL AND WAS INTUBATED AND STARTED ON A PROPOFOL GTT. THE PATIENT HAD BEEN AT [facility] FOR 1.5 MONTHS AND WAS DC'D TO HOME ON January ON IV ABX. CXR SHOWED PULMONARY EDEMA, PLEURAL EFFUSIONS WITH ATELECTASIS. WBC'S 25.9 ON ADMISSION, INCREASED TO 33.7 THE FOLLOWING DAY. GAP 18.7, ALK PHOS 570, TOTAL BILI 3.3. THE PATIENT WAS ADMITTED TO ICU WITH DX OF ARDS, SEPSIS, PHA, UTI AND SACRAL ULCER. ORDERS FOR CONSULTS WITH CARDIOLOGY, SURGERY, GI, PODIATRY, ID, NEPHROLOGY AND PULMONOLOGY. THE PATIENT CURRENTLY HAS HAD ALL LINES DC'D PER RECOMMENDATION OF SURGERY BECAUSE OF CONTINUED ELEVATED WBC'S. ON AMPICILLIN IV, PATIENT WAS EXTUBATED 02/24. LENY SPOKE WITH THE PATIENTS DAUGHTER GLENN BY PHONE TO DISCUSS REQUEST FOR TRANSFER AND DCP. GLENN STATES THAT SHE AND HER MOTHER NO LONGER WANT THE PATIENT TRANSFERRED BECAUSE HE'S DOING BETTER AND STATED THAT THEY WERE "FREAKED OUT" WHEN HE WAS FIRST ADMITTED HERE BECAUSE OF HIS CONDITION. LENY CONFIRMED THAT PATIENTS ADDRESS AND PHONE NUMBER, HE LIVES WITH HIS AND DAUGHTER. HE GOES TO [facility] ON M,W, F AND S AT 0930, HIS DAUGHTER TRANSPORTS HIM. HE IS ON SERVICE WITH [facility], LENY WILL SERVICE FOR RN AND P.T. UPON DISCHARGE. THE PATIENT IS PRIMARILY WC BOUND AT HOME BUT IS ABLE TO STAND AND TRANSFER TO HIS BED AND COMMODE. HE IS ALMOST TOTAL ASSIST WITH ADL'S AND HAS BEEN WC BOUND FOR ABOUT A YEAR.HE HAS DME OF GLUCOMETER, FWW, FOUR WHEEL WALKER, WC, COMMODE, O2 AND B/P CUFF. HE DOES NOT NORMALLY USE HIS O2. HE SEES A PMD AT [facility] IN [place] EVERY FEW MONTHS FOR FOLLOW UP NEEDED. THE DAUGHTER WOULD LIKE LENY TO REQUEST A HOSPITAL BED FROM HIS INSURANCE, LENY WILL FOLLOW UP WITH THIS. THE DAUGHTER STATES THAT THE FAMILY DOES NOT WANT SNF PLACEMENT, HAS TAKEN HIM TO [facility] IN THE PAST BUT LEFT AFTER 20 MINUTES. DCP IS FOR THE PATIENT TO RETURN HOME WITH FAMILY AND HOME HEALTH, LENY WILL FOLLOW.
--- NOTE | 2022-02-25 12:36 | NUR ---
PT DAUGHTER, GLENN GOLDMAN, VISITING AT BEDSIDE. UPDATED REGARDING PT CONDITION AND PLAN OF CARE.
[2022-02-25] MEDS: THERAHONEY GEL 42.5 GM TP SCH (13:00)
[2022-02-25] MEDS: GAUZE TP SCH (13:00)
--- NOTE | 2022-02-25 15:22 | NUR ---
02/25/22 RD FOLLOW UP COMPLETED PLEASE REFER TO NUTRITION ASSESSMENT UNDER CARE ACTIVITY FOR ESTIMATED NUTRITIONAL NEEDS. 1. IF/WHEN PT PASSES SWALLOW EVALUATION, RECOMMEND RENAL DIET + CCHO 60 GM, TOLERATED 2. RECOMMEND PROSOURCE BID FOR NUTRITION THERAPY AND WOUND HEALING. -WILL PROVIDE: 120 KCAL + 30 G OF PROTEIN, DAILY 3. RD TO FOLLOW-UP 3-5 DAYS, MODERATE RISK REVIEWED BY JEFF KHAN RD
--- NOTE | 2022-02-25 15:40 | NUR ---
DR HAIRSTON ROUNDLUAN AT BEDSIDE. NO NEW ORDERS AT THIS TIME.
--- NOTE | 2022-02-25 16:20 | NUR ---
DR LOVING ROUNDING AT BEDSIDE. OK TO DOWNGRADE TO TELE FROM CARDIAC STANDPOINT.
[2022-02-25] MEDS ORDERED: GENTAMICIN 60 MG in DEXTROSE 5% 100 ML IV SCH (17:00)
[2022-02-25] MEDS ORDERED: LIDOCAINE MPF 1% 10 MG/ML VIAL INJ SCH (17:30)
--- NOTE | 2022-02-25 19:30 | NUR ---
RECEIVED PT. FROM DAY SHIFT NEVIN ESTRADA. PT. AOX3, PERSIAN SPEAKING. ON 2L NASAL CANNULA WITH O2 SAT 98%. DIET: MECHANICAL SOFT RENAL CCHO 60 GM. IV SITE LEFT WRIST 20G, RIGHT FOREARM 20G, RUNNING NS TKO. PT. RIGHT ARM PICC LINE AND RIGHT JUGULAR MONY NEEDS TO BE REMOVED AT ONCE PER DR. MILLER. AND TIP TO BE SENT TO LAB. PLAN TO REMOVE THE LINE ON FRIDAY. CABA CATHETER PATENT AND INTACT WITH TRAMAINE CLOUDY URINE OUTPUT. SKIN NOT INTACT, PLEASE REFER TO CHART. HEMODIALYSIS DONE TODAY IN AM SHIFT WITH 1.6L OUTPUT. REPOSITIONED PT. BEDLOCK AND PLACED IN THE LOWEST HEIGHT. CALL LIGHT WITHIN REACH. WILL CONT.TO MONITOR.
[2022-02-25 19:54] LABS: BARBITURATE, URINE NEGATIVE ng/ml (NEG <=200); BENZODIAZEPINE, URINE NEGATIVE ng/mL (NEG <=200); CANNABINOID, URINE NEGATIVE ng/mL (NEG <=50); COCAINE, URINE NEGATIVE ng/mL (NEG <=300); OPIATE, URINE NEGATIVE ng/mL (NEG <=2000); PHENCYCLIDINE SCREEN,URINE NEGATIVE ng/mL (NEG <=25)
[2022-02-25] MEDS: INSULIN LISPRO SLIDING SCALE 100 UNITS/ML VIAL SUBQ PRN (21:42)
[2022-02-25] MEDS ORDERED: MORPHINE SULFATE 4 MG/ML SYR ONE (22:12)
--- NOTE | 2022-02-25 22:15 | NUR ---
MORPHINE SULFATE 4 MG IVP X1 GIVEN PRIOR TO REMOVAL OF MONY CATHETER PER DR. MILLER ORDERED.
--- NOTE | 2022-02-25 22:19 | NUR ---
DR. MILLER CAME AND REMOVED THE RIGHT SUBCLAVIAN MONY CATHETER AND COLLCECTED THE TIP TO BE SENT TO LAB. PER DR. MILLER, THE NEW MONY CATHETER WILL BE PLACED IN COUPLE OF DAYS. APPLIED PRESSURE DRESSING TO THE SITE. WILL ENDORSE TO THE NEXT SHIFT.
--- NOTE | 2022-02-25 22:25 | NUR ---
RIGHT ARM PICC LINE REMOVED AND APPLIED DRESSING. COLLECTED TIP OF THE CATHETER TO BE SENT TO LAB PER MD ORDERED. WILL ENDORSE TO THE NEXT SHIFT.
--- NOTE | 2022-02-25 22:30 | NUR ---
MONY CATHETER TIP AND PICC LINE CATHETER TIP COLLECTED AND SENT TO LAB.
[2022-02-26] VITALS (11 sets, daily range): BP systolic 133–151; BP diastolic 66–92
--- NOTE | 2022-02-26 01:55 | NUR ---
PT. DAUGHTER CALLED, HER NAME IS GLENN TO GET AN UPDATE WITH FATHER'S CONDITION. PROVIDED INFORMATION AND NO FURTHER QUESTIONS ASKED. 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 ACCORDING TO HER PT. UNDERGONE MULTIPLE EYE SURGERIES BEFORE AND LAST ONE WAS 2020.
--- NOTE | 2022-02-26 05:30 | NUR ---
PT. TRANSFERRED TO WOUND CARE MATRESS AND PT. TOLERATED WELL, THE TRANSFERRED OF BED.
--- NOTE | 2022-02-26 06:00 | NUR ---
SEEN BY DR POSEY AT BED SIDE NO ORDER CHANGED.
[2022-02-26 06:52] LABS: BASOPHILS # (AUTO) 0.1 K/uL (0.00-0.22); BASOPHILS % (AUTO) 0.9 % (0.0-2.0); EOSINOPHILS # (AUTO) 0.4 K/uL (0-0.4); EOSINOPHILS % (AUTO) 3.3 % (0.0-4.0); HEMATOCRIT 29.1 % (36-52); HEMOGLOBIN 9.7 g/dL (12.0-18.0); LYMPHOCYTES # (AUTO) 0.9 K/uL (2.0-11.5); LYMPHOCYTES % (AUTO) 7.4 % (20.5-51.1); MEAN CORPUSCULAR HEMOGLOBIN 30 pg (27-31); MEAN CORPUSCULAR HGB CONC 33 g/dL (33-37); MEAN CORPUSCULAR VOLUME 89.2 fL (80-94); MONOCYTES # (AUTO) 1.3 K/uL (0.8-1.0); NEUTROPHILS # (AUTO) 9.1 K/uL (1.8-7.7); NEUTROPHILS % (AUTO) 77.4 % (42.2-75.2); PLATELET COUNT (AUTO) 317 K/uL (140-450); RED BLOOD CELL COUNT(AUTO) 3.27 MIL/uL (4.20-6.10); RED CELL DISTRIBUTION WIDTH 16.1 % (11.6-13.7); WHITE BLOOD COUNT (AUTO) 11.7 K/uL (4.8-10.8)
[2022-02-26 07:03] LABS: ANION GAP 19.6 (8-16); CARBON DIOXIDE 23.2 mmol/L (21-32); CREATININE 3.8 mg/dL (0.6-1.3); POTASSIUM 4.8 mmol/L (3.5-5.1)
--- NOTE | 2022-02-26 07:20 | NUR ---
REDEIVED REPORT FROM RN CHARGE PT. RESTING QUIETLY IN BED, SKIN DRY AND WARM TO TOUCH BREATHING WITH O2 2L/NC O2 SAT95% IVLT WRIST #20 INFUSE NS KVO RT FA SALINE LOCK,PT, BLIND AND OCCITAN SPEEKING
[2022-02-26] MEDS: BLOOD GLUCOSE MONITORING 1 DEV DEV FS SCH ×4 (07:30→21:37)
[2022-02-26] MEDS: ALBUTEROL SULFATE/IPRATROPIU 3 ML SOL IH SCH ×3 (07:45→19:26)
[2022-02-26] MEDS: AMPICILLIN 2,000 MG in NACL 0.9% 100 ML IV SCH ×2 (08:21→21:04)
[2022-02-26] MEDS: PANTOPRAZOLE 40 MG INJ VIAL IVP SCH (08:22)
[2022-02-26] MEDS: VIT-B COMP/VIT-C/FOLIC ACID 1 TAB PO SCH (08:22)
[2022-02-26] MEDS: ASPIRIN 81 MG TAB.CHEW PO SCH (08:22)
[2022-02-26] MEDS: amLODIPine 5 MG TAB PO SCH (08:22)
--- NOTE | 2022-02-26 09:00 | NUR ---
SEEN BY DR CAMPA AT BED SIDE , ORDER RECEIVED. WLII DOWN GRADE TO TELE
[2022-02-26] MEDS: lisinopriL 20 MG TAB PO SCH (09:06)
--- NOTE | 2022-02-26 11:30 | NUR ---
BLOOD SUGAR 163 INSULIN COVER ORDERED.
--- NOTE | 2022-02-26 12:00 | NUR ---
DISCHARGE PLANNING PATIENT IS A 61 YEAR OLD MALE ADMITTED TO THE [facility]/ED ON 02/21/2022 DUE TO HAVING RESPIRATORY DISTRESS. PATIENT IS COMING FROM HOME WITH DAUGHTER GLENN AT BEDSIDE WHO CALL 911 AND PARAMEDICS REPORT THAT ON ARRIVAL PATIENT HAD A PULSE BUT HAD AGONAL BREATHING. PATIENT HAS MEDICAL HISTORY OF ESRD ON HD (MWF), DM2 AND HTN AND BIBA WITH COMPLAINTS OF SHORTNESS OF BREATH. SW MEET WITH PATIENT AT BEDSIDE TO DISCUSS AND GATHER HIS COLLATERAL INFORMATION, PATIENT AWAKE HOWEVER; PATIENT STATED THAT HE WAS TIRED AND REQUESTED FOR THE SW TO CONTAC HIS DAUGHTER GLENN GOLDMAN TO PROVIDE WITH SOME OF HIS INFORMATION. SW AGREED AND CONTACTED PATIENT'S DAUGHTER GLENN GOLDMAN AT AND DISCUSS PATIENT'S INFORMATION. PER VICTORIAEN'S DAUGHTER HE LIVES AT HOME WITH HIS MELL AND DAUGHTER PATRICK MENARD WHICH BOTH ARE HIS EMERGENCY CONTACT AND HIS MEDICAL DECISION MAKERS. PER PATIENT'S DAUGHTER HE DO NOT HAVE AN A.D. AND WHEN SW OFFERED A.D. INF. FORMS PATIENT DAUGHTER REQUESTED FOR SW TO LIVE INF. IN PATIENT'S ROOM. PER PATIENT'S DAUGHTER THEY HAVE GOOD FAMILY SUPPORT AND BUT DO HAVE SOME NEED FOR RESOURCES FOR IHSS. SW PROVIDED HER WITH RESOURCES OVER THE PHONE AND WILL ALSO LIVE INF. ON PATIENT'S ROOM FOR HIS DAUGHTER TO PHYSICIAN SUPPORT COORDINATOR WHEN SHE COMES SEE PATIENT. SHE AGREED AND THANKED JOSEF FOR THE INFORMATION AND RESOURCES. PATIENT'S DAUGHTER STATED THAT HE DID NOT HAVE A PCP HOWEVER; HE GOES TO A [facility] IN [facility]. WHEN NEEDS TO SEE A DOCTOR. JOSEF DISCUSSED WITH PATIENT'S DAUGHTER THE IMPORTANCE OF MAKING A FOLLOW UP APPOINTMENT WITH IN 5-7 DAYS AFTER DISCHARGE AND OFFERED TO MAKE A FOLLOW UP APPOINTMENT FOR PATIENT AFTER HIS DC FROM [facility]. PATIENT'S AGREED AGREED AND THANKED JOSEF. PATIENT'S DAUGHTER STATED THAT HE HAS NO ISSUES GETTING OR TAKING HIS MEDICATIONS WHEN PRESCRIBED BY HIS DOCTOR. PATIENT GETS HIS MEDICATIONS FROM THE [facility] IN [facility] [place] AND [facility]. PER PATIENT'S DAUGHTER HE IS NOT INDEPENDENT NOW AND NEEDS ASSISTANCE AT HOME HE HAS A WHEELCHAIR, WALKER, AND O2 HIS DME AT HOME. PATIENT'S DAUGHTER REPORTED THAT PATIENT IS GETTING DIALYSIS M, W, AND F, AT [facility] AND SHE IS THE ONE THAT TRANSPORT PATIENT. FOR HIS APPOINTMENTS. WHEN DISCUSSING PATIENT'S DISCHARGE PATIENT'S DAUGHTER STATED THAT HE WILL RETURN HOME HER ASSISTANCE AFTER HIS DC FOR [facility]. SW WILL FOLLOW UP NEEDED. Addendum: 03/18/22 at 1900 by Karen Bello SS DISCHARGE PLANNING SW MEET WITH PATIENT AND HIS DAUGHTER GLENN AT BEDSIDE TO DISCUSS PATIENTS PROGRESS AND STATUS, DISCUSS POSSIBLE DISCHARGE TOMORROW HOME WITH HOME HEALTH. PER PATIENTS DAUGHTER GLENN SHE WILL LIKE TO SPEAK TO PATIENT'S DOCTOR BEFORE HE IS DISCHARGE TO DISCUSS HIS NEEDS AT HOME AND SOME CONCERNS QUESTIONS ABOUT HIS HEALTH. SW ENCOURAGE PATIENT'S DAUGHTER TO LIVE A MSG TO MD TO CALL HER AND ANSWER HER QUESTIONS AND CONCERN BEFORE PATIENT'S DISCHARGE. PER PATIENT'S DAUGHTER GLENN HE IS GOING TO CONTINUE HOME HEALTH SERVICES WITH [facility] AT FAX . PATIENT'S DAUGHTER WAS THANKFUL TO JOSEF TO DISCUSS PATIENT'S STATUS, FOLLOW UP CARE AND WAS IN AGREEMENT WITH DISCHARGE PLAN. SW WILL FOLLOW UP NEEDED DISCHARGE PLANNING JOSEF CONTACTED HOME HEALTH SERVICES WITH [facility] AT FAX TO RE-START HOME HEALTH WHEN PATIENT IS DISCHARGE POSSIBLY TOMORROW. SPOKE TO DELMAR WHO REPORTED THAT SHE NEEDS PATIENT'S ORDERS FOR HOME HEALTH TO BE FAXED TO HER AT . JOSEF SEND FAXED TO DELMAR PATIENTS CLINICAL INFORMATION WITH CONFIRMATION AT ABOUT 16:31 SW WILL FOLLOW UP NEEDED.
[2022-02-26] MEDS: GAUZE TP SCH (13:00)
[2022-02-26] MEDS: THERAHONEY GEL 42.5 GM TP SCH (13:00)
--- NOTE | 2022-02-26 18:00 | NUR ---
ZABRINA SUGAR 114 NO INSULIN COVER NEEDED Addendum: 02/26/22 at 1942 by Vilma Choudhary RN THIS NOTE IS NOT FOR THIS PATIENT.
--- NOTE | 2022-02-26 18:00 | NUR ---
PT. TRANSFER TO 112 B IN BED BY TRA SILVERMAN SUPP.
--- NOTE | 2022-02-26 18:45 | NUR ---
received pt from icu , aaox4 , no s/sx of acute distress noted , on 02 at 2lpm/nc , o2 sat wnl , on tele monitor , plan of care discussed and verbalized understanding . call light within reach , w/ fc connecting to urine bag , w/ dressing on the previous site og hd access , will cont. to monitor , both eye blind , on saline locks . i told to robby - she have to assign someone to feed the pt - he is feeder due to both eye blind . prachi bustamante verbalizes understanding .
--- NOTE | 2022-02-26 19:24 | NUR ---
PT. RESTING QUIETLY . REPORT GIVE TO LEONARDO FOR CONTINUITY CARE.
--- NOTE | 2022-02-26 19:25 | NUR ---
RECEIVED REPORT FROM MORNING SHIFT NURSE. PT IS LYING ON BED, SLEEPING. PT IS AOX4, BED REST, ABLE TO VERBALIZE NEEDS AND ABLE TO FOLLOW COMMANDS. PT IS ON 2L NC AND ON RENAL DIET. PT HAS CABA CATHETER AND HAS SALINE LOCK ON LEFT WRIST G20 AND HAS IV ON RIGHT AC GAUGE 20. PT HAS LEFT HEAL WOUND AND OPEN WOUND ON SACRAL. ALL SAFETY MEASURES IMPLEMENTED. CALL LIGHT WITHIN REACH, BED IN LOW POSITION AND BED WHEELS ON LOCK.
[2022-02-26] MEDS: INSULIN LISPRO SLIDING SCALE 100 UNITS/ML VIAL SUBQ PRN (21:37)
--- NOTE | 2022-02-26 21:37 | NUR ---
ALL SCHEDULED PRESCRIBED MEDICATION WAS GIVEN TO PT PER MD ORDER. PT TOLERATED IT WELL. ALL SAFETY MEASURES IMPLEMENTED. BED WHEELS ON LOCK, BED IN LOW POSITION AND CALL LIGHT WITHIN REACH.
--- NOTE | 2022-02-26 22:00 | NUR ---
FED THE PT WITH HIS DINNER. PT EAT HIS FOOD AT 80%. ALL SAFETY MEASURES IMPLEMENTED. BED WHEELS ON LOCKED, BED IN LOW POSITION AND CALL LIGHT WITHIN REACH.
[2022-02-27] VITALS: BP 135/67
--- NOTE | 2022-02-27 | NUR ---
PT WAS GIVEN WATER PER PT REQUEST AND LOW THE HEAD OF THE BED WITH SEMI-SMITH'S POSITION. ALL SAFETY MEASURES IMPLEMENTED. BED WHEELS ON LOCKED, BED IN LOW POSITION AND CALL LIGHT WITHIN REACH.
--- NOTE | 2022-02-27 02:00 | NUR ---
PT IS LYING ON THE BED AND SLEEP. CHEST RISE AND FALL SYMMETRICALLY NOTED. RESPIRATIONS ARE EVEN AND UNLABORED. ALL SAFETY MEASURES IMPLEMENTED. BED WHEELS ON LOCKED, BED IN LOW POSITION AND CALL LIGHT WITHIN REACH.
[2022-02-27 04:00] VITALS: BP 148/76
--- NOTE | 2022-02-27 04:00 | NUR ---
CHECKED THE PT, STILL ON SLEEP. CHEST RISE AND FALL SYMMETRICALLY NOTED. RESPIRATIONS ARE EVEN AND UNLABORED SATING AT 93% WITH P-74 AND WITH NORMAL SINUS RHYTHM. ALL SAFETY MEASURES IMPLEMENTED. BED WHEELS ON LOCKED, BED IN LOW POSITION AND CALL LIGHT WITHIN REACH.
[2022-02-27] MEDS: BLOOD GLUCOSE MONITORING 1 DEV DEV FS SCH ×4 (06:35→20:23)
--- NOTE | 2022-02-27 06:35 | NUR ---
PT BLOOD GLUCOSE IS 188. HUMALOG INSULIN 2 UNITS WAS GIVEN TO PT. ALL SAFETY MEASURES IMPLEMENTED. BED WHEELS ON LOCKED, BED IN LOW POSITION AND CALL LIGHT WITHIN REACH.
[2022-02-27] MEDS: INSULIN LISPRO SLIDING SCALE 100 UNITS/ML VIAL SUBQ PRN ×3 (06:38→17:28)
[2022-02-27 07:12] LABS: ANION GAP 18.5 (8-16); CARBON DIOXIDE 24.6 mmol/L (21-32); POTASSIUM 5.1 mmol/L (3.5-5.1)
[2022-02-27 07:16] LABS: BASOPHILS # (AUTO) 0.1 K/uL (0.00-0.22); BASOPHILS % (AUTO) 0.7 % (0.0-2.0); EOSINOPHILS # (AUTO) 0.5 K/uL (0-0.4); EOSINOPHILS % (AUTO) 3.9 % (0.0-4.0); HEMATOCRIT 28.7 % (36-52); HEMOGLOBIN 9.7 g/dL (12.0-18.0); LYMPHOCYTES # (AUTO) 0.7 K/uL (2.0-11.5); LYMPHOCYTES % (AUTO) 5.4 % (20.5-51.1); MEAN CORPUSCULAR HEMOGLOBIN 30 pg (27-31); MEAN CORPUSCULAR HGB CONC 34 g/dL (33-37); MEAN CORPUSCULAR VOLUME 89.3 fL (80-94); MONOCYTES # (AUTO) 1.1 K/uL (0.8-1.0); MONOCYTES % (AUTO) 8.3 % (1.7-9.3); NEUTROPHILS # (AUTO) 11.2 K/uL (1.8-7.7); NEUTROPHILS % (AUTO) 81.7 % (42.2-75.2); PLATELET COUNT (AUTO) 330 K/uL (140-450); RED BLOOD CELL COUNT(AUTO) 3.22 MIL/uL (4.20-6.10); RED CELL DISTRIBUTION WIDTH 16.2 % (11.6-13.7); WHITE BLOOD COUNT (AUTO) 13.7 K/uL (4.8-10.8)
[2022-02-27 07:23] LABS: CREATININE 4.9 mg/dL (0.6-1.3)
--- NOTE | 2022-02-27 07:32 | NUR ---
PT IS STABLE. ENDORSED PT TO MORNING SHIFT NURSE FOR CONTINUITY OF CARE.
--- NOTE | 2022-02-27 07:33 | NUR ---
RECEIVED REPORT FROM TABLE KEEPER NURSE. PATIENT LYING DOWN IN BED, NO DISTRESS NOTED. ON NC 2L/MIN. IV SITE INTACT, PATENT, AND ON SALINE LOCK. CABA CATH IN PLACE. RU CHEST TUNNELED HD CATH DRESSINGS IN PLACE, NO BLEEDING. REVIEWED PLAN OF CARE WITH PATIENT. REINFORCEMENT NEEDED. SAFETY MEASURES IN PLACE, CALL LIGHT WITHIN REACH. WILL CONTINUE TO MONITOR.
[2022-02-27] MEDS: ALBUTEROL SULFATE/IPRATROPIU 3 ML SOL IH SCH ×3 (07:51→19:28)
[2022-02-27 08:00] VITALS: BP 139/69
[2022-02-27] MEDS: amLODIPine 5 MG TAB PO SCH (09:37)
[2022-02-27] MEDS: PANTOPRAZOLE 40 MG INJ VIAL IVP SCH (09:37)
[2022-02-27] MEDS: EPOETIN ALFA-EPBX 10,000 UNITS/ML VIAL SUBQ SCH (09:37)
[2022-02-27] MEDS: VIT-B COMP/VIT-C/FOLIC ACID 1 TAB PO SCH (09:38)
[2022-02-27] MEDS: lisinopriL 20 MG TAB PO SCH (09:38)
[2022-02-27] MEDS: ASPIRIN 81 MG TAB.CHEW PO SCH (09:38)
[2022-02-27] MEDS: AMPICILLIN 2,000 MG in NACL 0.9% 100 ML IV SCH ×2 (09:39→20:12)
--- NOTE | 2022-02-27 09:39 | NUR ---
SCHEDULED MEDICATIONS DUE GIVEN. WILL CONTINUE TO MONITOR.
[2022-02-27 12:00] VITALS: BP 159/77
[2022-02-27] MEDS: THERAHONEY GEL 42.5 GM TP SCH (12:30)
[2022-02-27] MEDS: GAUZE TP SCH (12:30)
--- NOTE | 2022-02-27 12:31 | NUR ---
SCHEDULED MEDICATIONS DUE GIVEN. WILL CONTINUE TO MONITOR.
--- NOTE | 2022-02-27 13:53 | NUR ---
NO DISTRESS NOTED PHYSICAL THERAPIST AT BEDSIDE HEALTH SAFETY MANAGER TO ATTEMPT HHN THERAPY AT A LATER TIME
[2022-02-27] MEDS: hydrALAZINE 20 MG/ML VIAL IVP PRN ×3 (15:42→18:15)
[2022-02-27 16:00] VITALS: BP 160/80
--- NOTE | 2022-02-27 17:29 | NUR ---
SCHEDULED MEDICATIONS DUE GIVEN. WILL CONTINUE TO MONITOR.
--- NOTE | 2022-02-27 19:30 | NUR ---
GAVE REPORT TO ADJUNCT PSYCHOLOGY INSTRUCTOR NURSE FOR CONTINUITY OF CARE. PATIENT IN STABLE CONDITION.
[2022-02-27 20:00] VITALS: BP 153/68
--- NOTE | 2022-02-27 20:03 | NUR ---
RECEIVED REPORT FROM MORNING SHIFT NURSE. PT IS LYING ON BED, SLEEPING. PT IS AOX4, BED REST, ABLE TO VERBALIZE NEEDS AND ABLE TO FOLLOW COMMANDS. PT IS ON 4L NC AND ON RENAL DIET. PT HAS CABA CATHETER AND HAS IV ON LEFT WRIST G20 AND HAS IV ON RIGHT AC GAUGE 20 RUNNING WITH NS AT 10ML/HR. PT HAS LEFT HEAL WOUND AND OPEN WOUND ON SACRAL. ALL SAFETY MEASURES IMPLEMENTED. CALL LIGHT WITHIN REACH, BED IN LOW POSITION AND BED WHEELS ON LOCK.
--- NOTE | 2022-02-27 20:23 | NUR ---
ALL SCHEDULED PRESCRIBED WAS GIVEN TO PT PER MD ORDER. PT TOLERATED IT WELL. ALL SAFETY MEASURES IMPLEMENTED. CALL LIGHT WITHIN REACH, BED IN LOW POSITION AND BED WHEELS ON LOCK.
--- NOTE | 2022-02-27 22:00 | NUR ---
PT WAS GIVEN WARM BLANKET PT REQUEST. ALL SAFETY MEASURES IMPLEMENTED. CALL LIGHT WITHIN REACH, BED IN LOW POSITION AND BED WHEELS ON LOCK.
--- NOTE | 2022-02-28 | NUR ---
PT IS SLEEPING. CHEST RISE AND FALL SYMMETRICALLY NOTED. RESPIRATION ARE EVEN AND UNLABORED. NO S/S OF RESPIRATORY DISTRESS NOTED SATING AT 94%. ALL SAFETY MEASURES IMPLEMENTED. CALL LIGHT WITHIN REACH, BED IN LOW POSITION AND BED WHEELS ON LOCK.
--- NOTE | 2022-02-28 02:00 | NUR ---
CHECKED PT, STILL SLEEPING. CHEST RISE AND FALL SYMMETRICALLY NOTED. RESPIRATION ARE EVEN AND UNLABORED. NO S/S OF RESPIRATORY DISTRESS NOTED. ALL SAFETY MEASURES IMPLEMENTED. CALL LIGHT WITHIN REACH, BED IN LOW POSITION AND BED WHEELS ON LOCK.
--- NOTE | 2022-02-28 04:00 | NUR ---
PT VS BP-153/72, RR-18, CT-82, T-98.9 SATING AT 91%. PT HAS NO S/S OF RESPIRATORY DISTRESS NOTED. ALL SAFETY MEASURES IMPLEMENTED. CALL LIGHT WITHIN REACH, BED IN LOW POSITION AND BED WHEELS ON LOCK.
--- NOTE | 2022-02-28 06:00 | NUR ---
MORNING WAS DONE TO PATIENT. CHANGED LINENS, GOWN, BLANKET, AND DIAPER. ALL SAFETY MEASURES IMPLEMENTED. BED WHEELS ON LOCKED, BED IN LOW POSITION AND CALL LIGHT WITHIN REACH.
[2022-02-28] MEDS: BLOOD GLUCOSE MONITORING 1 DEV DEV FS SCH ×4 (06:32→21:51)
[2022-02-28] MEDS: INSULIN LISPRO SLIDING SCALE 100 UNITS/ML VIAL SUBQ PRN ×4 (06:34→21:52)
[2022-02-28] MEDS: ALBUTEROL SULFATE/IPRATROPIU 3 ML SOL IH SCH ×2 (07:09→19:12)
[2022-02-28 07:12] LABS: BASOPHILS # (AUTO) 0.1 K/uL (0.00-0.22); BASOPHILS % (AUTO) 0.9 % (0.0-2.0); EOSINOPHILS # (AUTO) 0.6 K/uL (0-0.4); EOSINOPHILS % (AUTO) 4.5 % (0.0-4.0); HEMATOCRIT 28.7 % (36-52); HEMOGLOBIN 9.5 g/dL (12.0-18.0); LYMPHOCYTES % (AUTO) 7.1 % (20.5-51.1); MEAN CORPUSCULAR HEMOGLOBIN 30 pg (27-31); MEAN CORPUSCULAR HGB CONC 33 g/dL (33-37); MONOCYTES # (AUTO) 1.4 K/uL (0.8-1.0); MONOCYTES % (AUTO) 10.1 % (1.7-9.3); NEUTROPHILS # (AUTO) 10.5 K/uL (1.8-7.7); NEUTROPHILS % (AUTO) 77.4 % (42.2-75.2); PLATELET COUNT (AUTO) 320 K/uL (140-450); RED BLOOD CELL COUNT(AUTO) 3.18 MIL/uL (4.20-6.10); RED CELL DISTRIBUTION WIDTH 16.4 % (11.6-13.7); WHITE BLOOD COUNT (AUTO) 13.5 K/uL (4.8-10.8)
[2022-02-28 07:19] LABS: ANION GAP 21.1 (8-16); CARBON DIOXIDE 23.4 mmol/L (21-32); POTASSIUM 5.5 mmol/L (3.5-5.1)
--- NOTE | 2022-02-28 07:19 | NUR ---
PT IS STABLE. ENDORSED PT TO MORNING SHIFT NURSE FOR CONTINUITY OF CARE.
[2022-02-28 07:39] LABS: CREATININE 5.8 mg/dL (0.6-1.3)
[2022-02-28] MEDS: ASPIRIN 81 MG TAB.CHEW PO SCH (08:36)
[2022-02-28] MEDS: PANTOPRAZOLE 40 MG INJ VIAL IVP SCH (08:36)
[2022-02-28] MEDS: lisinopriL 20 MG TAB PO SCH (08:37)
[2022-02-28] MEDS: VIT-B COMP/VIT-C/FOLIC ACID 1 TAB PO SCH (08:37)
[2022-02-28] MEDS: amLODIPine 5 MG TAB PO SCH (08:38)
[2022-02-28] MEDS: AMPICILLIN 2,000 MG in NACL 0.9% 100 ML IV SCH ×2 (08:49→21:31)
[2022-02-28 10:00] VITALS: BP 154/71
[2022-02-28] MEDS ORDERED: SODIUM ZIRCONIUM CYCLOSILICATE 10 GM POWD.PACK PO SCH (12:00)
[2022-02-28] MEDS: GAUZE TP SCH (13:00)
--- NOTE | 2022-02-28 13:27 | NUR ---
STAFF MIDWIFE AT BEDSIDE ASSISTING PATIENT WITH LUNCH NUTRITION NO DISTRESS NOTED SOCIAL MEDIA CONTENT MANAGER TO ATTEMPT HHN THERAPY AT A LATER TIME
[2022-02-28] MEDS: THERAHONEY GEL 42.5 GM TP SCH (14:30)
[2022-02-28 16:00] VITALS: BP 115/76
--- NOTE | 2022-02-28 17:56 | NUR ---
Received pt a/ox4. No c/o pain. Sacral and L foot dressing done. Pt awaiting possible Kalyan cath placement. Pt remains on 4L/NC and taking Lokelma for higher potassium level.
--- NOTE | 2022-02-28 20:00 | NUR ---
RECEIVED BEDSIDE REPORT REGARDING THE PATIENT FROM DAY RN FOR CONTINUITY OF CARE. PATIENT AT THE BEDSIDE AND WANTED AN UPDATE ABOUT THE PATIENT. CLINICAL NUTRITIONIST PROVIDED, NEVIN CHILEL WITH THE TRANSLATION FOR THE PATIENT AND THE PT . OTHERWISE PATIENT HAS NO COMPLAIN AT THIS TIME AND NOT IN ANY DISTRESS. BED IN LOW AND LOCKED POSITION. WILL CONTINUE POC.
--- NOTE | 2022-02-28 22:00 | NUR ---
ALL DUE MEDS GIVEN ORDERED. NO ADVERSE DRUG REACTION NOTED AND NO COMPLAIN FROM THE PATIENT. WILL CONTINUE OBSERVATION. CALL LIGHT WITHIN REACH.
[2022-03-01] VITALS: BP 150/67
--- NOTE | 2022-03-01 | NUR ---
PATIENT VITALS SIGNS STABLE, AFEBRILE,SATING 94% ON 4L/NC. NOT IN ANY DISTRESS AND NO COMPLAIN AT THIS TIME. CALL LIGHT WITHIN REACH.
--- NOTE | 2022-03-01 02:00 | NUR ---
MADE ROUNDS PATIENT ASLEEP AT THIS TIME. VISIBLE CHEST RISE AND FALL NOTED. WILL CONTINUE OBSERVATION. CALL LIGHT WITHIN REACH.
--- NOTE | 2022-03-01 04:00 | NUR ---
REPOSITIONED THE PATIENT FOR COMFORT.CHANGED THE PATIENT IV DRESSING. NO COMPLAIN AT THIS TIME
--- NOTE | 2022-03-01 06:14 | NUR ---
NO ACUTE EVENT THROUGHOUT THE NIGHT. PATIENT STABLE , NOT IN ANY DISTRESS AND NO COMPLAIN AT THIS TIME.ALL NEEDS ATTENDED. WILL ENDORSE THE PATIENT TO THE ONCOMING RN FOR CONTINUITY OF CARE.
--- NOTE | 2022-03-01 06:28 | NUR ---
PATIENT BLOOD SUGAR IS 159.HELD THE RISS . PATIENT NPO AFTER MIDNIGHT LAST NIGHT GOING FOR TUNNELED CATH THIS AFTERNOON.
[2022-03-01] MEDS: BLOOD GLUCOSE MONITORING 1 DEV DEV FS SCH ×4 (06:30→20:03)
[2022-03-01] MEDS: ALBUTEROL SULFATE/IPRATROPIU 3 ML SOL IH SCH ×3 (07:39→19:30)
[2022-03-01 08:00] VITALS: BP 162/73
[2022-03-01 08:15] LABS: BASOPHILS # (AUTO) 0.2 K/uL (0.00-0.22); EOSINOPHILS # (AUTO) 0.5 K/uL (0-0.4); EOSINOPHILS % (AUTO) 3.5 % (0.0-4.0); HEMATOCRIT 28.4 % (36-52); HEMOGLOBIN 9.4 g/dL (12.0-18.0); LYMPHOCYTES # (AUTO) 0.9 K/uL (2.0-11.5); MEAN CORPUSCULAR HEMOGLOBIN 30 pg (27-31); MEAN CORPUSCULAR HGB CONC 33 g/dL (33-37); MEAN CORPUSCULAR VOLUME 90.2 fL (80-94); MONOCYTES # (AUTO) 1.1 K/uL (0.8-1.0); MONOCYTES % (AUTO) 7.2 % (1.7-9.3); NEUTROPHILS # (AUTO) 12.7 K/uL (1.8-7.7); NEUTROPHILS % (AUTO) 82.3 % (42.2-75.2); PLATELET COUNT (AUTO) 341 K/uL (140-450); RED BLOOD CELL COUNT(AUTO) 3.15 MIL/uL (4.20-6.10); RED CELL DISTRIBUTION WIDTH 16.9 % (11.6-13.7); WHITE BLOOD COUNT (AUTO) 15.4 K/uL (4.8-10.8)
[2022-03-01 08:24] LABS: ANION GAP 21.9 (8-16); CARBON DIOXIDE 21.9 mmol/L (21-32); POTASSIUM 5.8 mmol/L (3.5-5.1)
[2022-03-01 08:33] LABS: CREATININE 6.3 mg/dL (0.6-1.3)
[2022-03-01] MEDS: ASPIRIN 81 MG TAB.CHEW PO SCH (09:00)
[2022-03-01] MEDS: VIT-B COMP/VIT-C/FOLIC ACID 1 TAB PO SCH (09:00)
[2022-03-01] MEDS: EPOETIN ALFA-EPBX 10,000 UNITS/ML VIAL SUBQ SCH (09:00)
[2022-03-01] MEDS: PANTOPRAZOLE 40 MG INJ VIAL IVP SCH (09:00)
[2022-03-01] MEDS: amLODIPine 5 MG TAB PO SCH (09:00)
[2022-03-01] MEDS: lisinopriL 20 MG TAB PO SCH (09:00)
--- NOTE | 2022-03-01 09:27 | NUR ---
Spoke to pt.'s daughter Donya who stated pt is able to give verbal consent for dialysis line. Pt is agreeable. master motorcycle technician informed
[2022-03-01] MEDS ORDERED: fentaNYL citrate 0.05 MG/ML VIAL ONE (09:55)
[2022-03-01] MEDS ORDERED: BUPIVACAINE-MPF 0.25% 30 ML VIAL INJ ONE (09:56)
[2022-03-01] MEDS ORDERED: MIDAZOLAM 2 MG/2 ML VIAL ONE (09:56)
[2022-03-01] MEDS ORDERED: LIDOCAINE/EPI MPF 1%1:200000 30 ML VIAL INJ ONE (11:02)
[2022-03-01] MEDS: AMPICILLIN 2,000 MG in NACL 0.9% 100 ML IV SCH ×2 (12:48→20:03)
[2022-03-01] MEDS ORDERED: CALCIUM GLU 1 GM/100 mL NS BAG 100 ML IV SCH (13:00)
[2022-03-01] MEDS: THERAHONEY GEL 42.5 GM TP SCH (13:00)
[2022-03-01] MEDS ORDERED: CALCIUM GLUCONATE 10% 1,000 MG in NACL 0.9% 50 ML IV SCH (13:00)
[2022-03-01] MEDS: GAUZE TP SCH (13:00)
--- NOTE | 2022-03-01 15:08 | NUR ---
03/01/22 RD FOLLOW UP COMPLETED PLEASE REFER TO NUTRITION ASSESSMENT UNDER CARE ACTIVITY FOR ESTIMATED NUTRITIONAL NEEDS. 1. RECOMMEND CCHO 60 GM + RENAL DIET WITH MECHANICAL SOFT TEXTURE MODIFICATION TOLERATED. 2. RECOMMEND PROSOURCE BID FOR NUTRITION THERAPY WOUND HEALING. 3. RD TO FOLLOW-UP 3-5 DAYS, MODERATE RISK REVIEWED BY MINH GARCIA RD
[2022-03-01 16:00] VITALS: BP 159/76
--- NOTE | 2022-03-01 19:10 | NUR ---
RECEIVED REPORT FROM AM NURSE. PATIENT IS ASLEEP, AROUSABLE BY VERBAL STIMULI. ON GOING DIALYSIS ORDERED. DENIES PAIN. NO RESPIRATORY DISTRESS NOTED. SKIN WARM AND DRY TO TOUCH. BED IN THE LOWEST AND LOCKED POSITION FOR SAFETY. CALL LIGHT IN REACH.
--- NOTE | 2022-03-01 20:33 | NUR ---
DIALYSIS DONE 3L OUT PER HD RN. VITAL SIGNS FOLLOWS;BP-162/75 HR-93, RR-20.
--- NOTE | 2022-03-01 20:45 | NUR ---
FED PATIENT HIS DINNER ATE 50%, DRANK NEPRO.
--- NOTE | 2022-03-01 20:57 | NUR ---
BLEEDING NOTED ON THE TUNNELED CATH SITE, HELD HEPARIN. SHARE[employer] SOLUTIONS ARCHITECT AWARE.
[2022-03-01] MEDS ORDERED: GENTAMICIN 60 MG in DEXTROSE 5% 100 ML IV SCH (21:00)
--- NOTE | 2022-03-01 21:00 | NUR ---
RIGHT IJ DIALYSIS ACCESS DRESSING CHANGED. CLEANED PATIENT, MADE COMFORTABLE IN BED. HEAD OF THE BED ELEVATED, CALL LIGHT IN REACH. PT APPRECIATIVE OF CARE.
[2022-03-01] MEDS: guaiFENesin DM 200/20 MG-10 ML 10 ML UDC PO PRN (21:03)
--- NOTE | 2022-03-01 22:00 | NUR ---
NO BLEEDING NOTED ON THE DRESSING IN THE RIGHT IJ DIALYSIS ACCESS AT THIS TIME. DENIES PAIN AT THIS TIME.
[2022-03-01] MEDS: hydrALAZINE 20 MG/ML VIAL IVP PRN (23:08)
[2022-03-02] VITALS: BP 179/76
[2022-03-02] MEDS: hydrALAZINE 20 MG/ML VIAL IVP PRN (00:08)
--- NOTE | 2022-03-02 00:12 | NUR ---
PATIENT ASLEEP. NO S/SX OF PAIN NOR DISCOMFORT NOTED. CALL LIGHT IN REACH.
[2022-03-02] MEDS: ALBUTEROL SULFATE/IPRATROPIU 3 ML SOL IH PRN (01:15)
--- NOTE | 2022-03-02 01:30 | NUR ---
RUBEN ELIZABETH AT THE BEDSIDE, UPDATED ON PATIENT'S CONDITION, ANSWERED QUESTIONS AND ENCOURAGED TO CALL IF ASSISTANCE IS NEEDED
--- NOTE | 2022-03-02 04:13 | NUR ---
ROUNDING DONE. PATIENT ASLEEP. DAUGHTER AT THE BEDSIDE. NO S/SX OF PAIN NOR DISCOMFORT. CALL LIGHT IN REACH.
[2022-03-02] MEDS: guaiFENesin DM 200/20 MG-10 ML 10 ML UDC PO PRN (05:28)
--- NOTE | 2022-03-02 05:33 | NUR ---
SMALL SMEAR OF STOOL NOTED, AM CARE RENDERED, ORAL CARE DONE. REPOSITIONED FOR COMFORT. ELEVATED HEAD OF THE BED. CALL LIGHT IN REACH.
[2022-03-02] MEDS: INSULIN LISPRO SLIDING SCALE 100 UNITS/ML VIAL SUBQ PRN ×2 (06:32→11:44)
[2022-03-02] MEDS: BLOOD GLUCOSE MONITORING 1 DEV DEV FS SCH ×4 (06:34→21:30)
--- NOTE | 2022-03-02 06:37 | NUR ---
BLOOD SUGAR 171 MG/DL, INSULIN GIVEN PER SLIDING SCALE COVERAGE ORDERED. ALL NEEDS ATTENDED TO. NO ACUTE RESPIRATORY DISTRESS NOTED. SAFETY PRECAUTIONS MAINTAINED DURING THE SHIFT, CALL LIGHT REMAINED WITHIN REACH.
[2022-03-02 07:09] LABS: BASOPHILS # (AUTO) 0.1 K/uL (0.00-0.22); BASOPHILS % (AUTO) 0.8 % (0.0-2.0); EOSINOPHILS # (AUTO) 0.2 K/uL (0-0.4); EOSINOPHILS % (AUTO) 1.3 % (0.0-4.0); HEMATOCRIT 29.4 % (36-52); HEMOGLOBIN 9.5 g/dL (12.0-18.0); LYMPHOCYTES # (AUTO) 0.8 K/uL (2.0-11.5); MEAN CORPUSCULAR HEMOGLOBIN 29 pg (27-31); MEAN CORPUSCULAR HGB CONC 32 g/dL (33-37); MEAN CORPUSCULAR VOLUME 90.7 fL (80-94); MONOCYTES # (AUTO) 1.2 K/uL (0.8-1.0); MONOCYTES % (AUTO) 7.7 % (1.7-9.3); NEUTROPHILS # (AUTO) 13.1 K/uL (1.8-7.7); NEUTROPHILS % (AUTO) 85.2 % (42.2-75.2); PLATELET COUNT (AUTO) 361 K/uL (140-450); RED BLOOD CELL COUNT(AUTO) 3.24 MIL/uL (4.20-6.10); RED CELL DISTRIBUTION WIDTH 17.4 % (11.6-13.7); WHITE BLOOD COUNT (AUTO) 15.4 K/uL (4.8-10.8)
[2022-03-02] MEDS: ALBUTEROL SULFATE/IPRATROPIU 3 ML SOL IH SCH ×3 (07:30→19:45)
--- NOTE | 2022-03-02 07:30 | NUR ---
RECEIVED PT FROM [facility] RT, PT SEEN ON 4L BUBBLE NASAL CANNULA, PT DAUGHTER AT BEDSIDE. PT'S BREATH SOUNDS WERE COARSE THROUGHOUT. HHNTX WAS GIVEN AND COACHED PT TO EXCRETE ANY SECRETIONS NECESSARY. PT NOT IN ANY RESPIRATORY DISTRESS
[2022-03-02 07:32] LABS: ANION GAP 19.2 (8-16); CARBON DIOXIDE 27.2 mmol/L (21-32); POTASSIUM 4.4 mmol/L (3.5-5.1)
[2022-03-02 07:41] LABS: CREATININE 4.4 mg/dL (0.6-1.3)
[2022-03-02 08:00] VITALS: BP 160/78
[2022-03-02] MEDS: PANTOPRAZOLE 40 MG INJ VIAL IVP SCH (09:11)
[2022-03-02] MEDS: AMPICILLIN 2,000 MG in NACL 0.9% 100 ML IV SCH ×2 (09:12→22:00)
[2022-03-02] MEDS: ASPIRIN 81 MG TAB.CHEW PO SCH (09:12)
[2022-03-02] MEDS: VIT-B COMP/VIT-C/FOLIC ACID 1 TAB PO SCH (09:13)
[2022-03-02] MEDS: lisinopriL 20 MG TAB PO SCH (09:13)
[2022-03-02] MEDS: hydrALAZINE 25 MG TAB PO SCH ×3 (09:13→17:40)
[2022-03-02] MEDS: amLODIPine 5 MG TAB PO SCH (09:13)
--- NOTE | 2022-03-02 09:15 | NUR ---
SCHEDULED MEDS GIVEN EXCEPT HEPARIN SQ DUE TO BLEEDING AT DIALYSIS CATH SITE.
--- NOTE | 2022-03-02 11:44 | NUR ---
BS CHECK WAS 197. ADMINISTERED 2 UNITS OF INSULIN SQ PER MD ORDERED.
--- NOTE | 2022-03-02 12:00 | NUR ---
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 NOT WORSENING. -PRESSURE INJURY STAGE 3, SACROCOCCYX MOIST, NO ODOR, CHARLENE-WOUND SKIN MOIST, HEALING SCAR TISSUE, SURROUNDING NON-BLANCHABLE REDNESS INDICATED FURTHER DAMAGE. REMAINS THE SAME, NOT WORSENING. - PRESSURE INJURY UN-STAGEABLE, LEFT HEEL, BROWN/BLACK SLOUGH TISSUE, SMALL AMOUNT PURULRNT DRAINAGE, MILD ODOR, ENTIRE CHARLENE WOUND MUSHY, DENUDED SKIN WITH SURROUNDING DTI. REMAINS THE SAME, NOT WORSENING. RECOMMENDATIONS: - CONTINUE WITH ALL CURRENT WOUND CARE MANAGEMENT REGIMEN AND PRESSURE ULCER PREVENTION MEASURES.
[2022-03-02] MEDS: GAUZE TP SCH (13:24)
[2022-03-02] MEDS: THERAHONEY GEL 42.5 GM TP SCH (13:25)
--- NOTE | 2022-03-02 14:00 | NUR ---
PT WAS SWITCHED FROM REGULAR NASAL CANNULA TO OXYMIZER AT 10L DUE TO DESATURATION. AND IS COARSE THROUGHOUT, AND COACHED ON COUGHING UP SECRETIONS. PT TOLERATED OXYMIZER WELL.
--- NOTE | 2022-03-02 14:45 | NUR ---
RT PLACED OXIMIZER ON PATIENT AT 10L. O2 SATURATION AT 94%.
[2022-03-02] MEDS ORDERED: GENTAMICIN PER PHARMACY MC PRN (15:00)
--- NOTE | 2022-03-02 15:00 | NUR ---
RT AT BEDSIDE.
[2022-03-02 16:00] VITALS: BP 144/67
--- NOTE | 2022-03-02 19:34 | NUR ---
RECEIVED ENDORSEMENT FROM DAY SHIFT NURSE FOR CONTINUITY OF CARE. PT IS AWAKE. ALERT AND VERBALLY RESPONSIVE. PT IS ON 10 LPM O2 INHALATION VIA NASAL CANNULA, O2 SAT RANGING 91-92%. PT IS ON RENAL MECHANICAL SOFT DIET. SALINE LOCK AT RIGHT FOREARM 20G INTACT AND PATENT. RIGHT IJ COVERED WITH DRY AND CLEAN DRESSING. LEFT HEEL COVERED WITH DRY AND CLEAN DRESSING. CONTINUE MONITORING.
--- NOTE | 2022-03-02 19:35 | NUR ---
ENDORSED TO POWER SHEAR OPERATOR NURSE FOR CONTINUITY OF CARE. PT IS STABLE.
--- NOTE | 2022-03-02 19:45 | NUR ---
FEED PT FOR DINNER, CONSUMED 50% OF FOOD PREPARED. PT STATED MILK SUPPLEMENT WILL TAKE LATER.
--- NOTE | 2022-03-02 19:50 | NUR ---
BREATHING TREATMENT & CHEST PERCUSSION GIVEN BY RT, PT TOLERATE WELL.
--- NOTE | 2022-03-02 20:10 | NUR ---
BLOOD SUGAR CHECK = 123, NO SLIDING SCALE COVERAGE.
--- NOTE | 2022-03-02 21:23 | NUR ---
CHECK PT, PT IS SLEEPY BUT RESPONSIVE ON STIMULI, B/P 144/68, P 86, O2 SAT 96% ON 10 LPM.
--- NOTE | 2022-03-03 06:30 | NUR ---
BLOOD SUGAR 182.
[2022-03-03] MEDS: BLOOD GLUCOSE MONITORING 1 DEV DEV FS SCH ×4 (06:58→20:52)
[2022-03-03 07:14] LABS: ANION GAP 20.4 (8-16); POTASSIUM 4.4 mmol/L (3.5-5.1)
[2022-03-03 07:21] LABS: BASOPHILS # (AUTO) 0.1 K/uL (0.00-0.22); BASOPHILS % (AUTO) 0.2 % (0.0-2.0); EOSINOPHILS % (AUTO) 0.1 % (0.0-4.0); HEMATOCRIT 27.8 % (36-52); HEMOGLOBIN 9.1 g/dL (12.0-18.0); LYMPHOCYTES # (AUTO) 0.9 K/uL (2.0-11.5); MEAN CORPUSCULAR HEMOGLOBIN 30 pg (27-31); MEAN CORPUSCULAR HGB CONC 33 g/dL (33-37); MEAN CORPUSCULAR VOLUME 91.1 fL (80-94); MONOCYTES # (AUTO) 1.2 K/uL (0.8-1.0); MONOCYTES % (AUTO) 3.9 % (1.7-9.3); NEUTROPHILS # (AUTO) 28.7 K/uL (1.8-7.7); PLATELET COUNT (AUTO) 341 K/uL (140-450); RED BLOOD CELL COUNT(AUTO) 3.05 MIL/uL (4.20-6.10); RED CELL DISTRIBUTION WIDTH 17.8 % (11.6-13.7)
[2022-03-03 07:35] LABS: WHITE BLOOD COUNT (AUTO) 30.9 K/uL (4.8-10.8)
[2022-03-03] MEDS: ALBUTEROL SULFATE/IPRATROPIU 3 ML SOL IH SCH ×3 (07:43→20:00)
--- NOTE | 2022-03-03 07:43 | NUR ---
TITRATED FIO2 TO 8 LPM VIA OXYMIZER LABORATORY TECHNICAL SPECIALIST TO MONITOR
--- NOTE | 2022-03-03 07:50 | NUR ---
ENDORSED TO DAY SHIFT NURSE FOR CONTINUITY OF CARE. PT IS RESPONSIVE ON STIMULI. GIVEN 2 UNITS INSULIN FOR BS 182. ALL SAFETY MEASURES IN PLACE.
[2022-03-03] MEDS: INSULIN LISPRO SLIDING SCALE 100 UNITS/ML VIAL SUBQ PRN ×3 (07:52→20:59)
[2022-03-03 07:59] LABS: LYMPHOCYTES % (AUTO) 2.8 % (20.5-51.1)
[2022-03-03 08:00] VITALS: BP 136/65
[2022-03-03 08:32] LABS: CREATININE 5.3 mg/dL (0.6-1.3)
[2022-03-03] MEDS: hydrALAZINE 25 MG TAB PO SCH ×3 (09:00→17:31)
[2022-03-03] MEDS: lisinopriL 20 MG TAB PO SCH (09:00)
[2022-03-03] MEDS: amLODIPine 5 MG TAB PO SCH (09:00)
[2022-03-03] MEDS: AMPICILLIN 2,000 MG in NACL 0.9% 100 ML IV SCH ×2 (09:34→20:26)
[2022-03-03] MEDS: PANTOPRAZOLE 40 MG INJ VIAL IVP SCH (09:37)
[2022-03-03] MEDS: VIT-B COMP/VIT-C/FOLIC ACID 1 TAB PO SCH (09:39)
[2022-03-03] MEDS ORDERED: GENTAMICIN 100 MG in DEXTROSE 5% 100 ML IV SCH (10:00)
[2022-03-03] MEDS: GAUZE TP SCH (13:00)
[2022-03-03] MEDS: THERAHONEY GEL 42.5 GM TP SCH (13:00)
[2022-03-03] MEDS ORDERED: VANCOMYCIN PER PHARMACY MC PRN (14:05)
--- NOTE | 2022-03-03 14:11 | NUR ---
SATURATION 98% ON SUPPLEMENTAL OXYGEN AT 8 LPM VIA OXYMIZER NASOTRACHEAL SUCTION REQUIRED USING A STERILE TECHNIQUE APPLIED [place] LUBRICANT TO THE DISTAL END OF A 14 FR SUCTION CATHETER INSERTED INTO RIGHT SEPTUM X 2 SUCTIONED FOR LARGE THIN YELLOW TO HAZY SECRETIONS FOLLOWED BY HHN THERAPY POST HHN THERAPY TITRATED FIO2 TO 6 LPM VIA 0XYMIZER BAKERY AND DELI SALES MANAGER TO MONITOR SARA/RN NOTIFIED
--- NOTE | 2022-03-03 15:30 | NUR ---
SATURATION 97% ON SUPPLEMENTAL OXYGEN AT 6 LPM VIA OXYMIZER TITRATED FIO2 TO 5 LPM SARA/RN NOTIFIED
[2022-03-03 16:00] VITALS: BP 140/63
[2022-03-03] MEDS ORDERED: VANCOMYCIN 1,000 MG in DEXTROSE 5% 250 ML IV SCH (16:00)
[2022-03-03 17:13] LABS: PROTHROMBIN TIME 12.1 secs (10.8-13.4)
--- NOTE | 2022-03-03 19:36 | NUR ---
RECEIVED SHIFT REPORT FROM SARA ROONEY. PATIENT WAS STABLE DURING SHIFT REPORT. PATIENT IN BED ASLEEP. WITH OXYMIZER OXYGEN AT 5 LITERS. NO NOTED S/S OF PAIN/DISCOMFORT. NO NOTED RESPIRATORY DISTRESS. NOTED PATIENT MAKE AN MOAN AND WENT BACK TO SLEEP WHEN NURSING CALLED HIS NAME. SIDE RAILS UP X 2 FOR COMFORT. KEPT CLEAN AND DRY. BED NOTED AT THE LOWEST LEVEL SEMI SMITH POSITION. CALL LIGHT WITHIN REACH, BUT IN SHIFT REPORT PATIENT IS BLIND. NURSING WILL FREQUENT ROOM IN ANTICIPATION TO NEEDS AND WANTS. [email or web address]
--- NOTE | 2022-03-03 19:36 | NUR ---
ENDORSE PATIENT TO PM SHIFT NURSE WITH STABLE CONDITION W/ NO ACUTE DISTRESS NOTED. PIV R. FOREARM SALINE LOCK
[2022-03-03 20:00] VITALS: BP 146/63
--- NOTE | 2022-03-03 20:00 | NUR ---
Patient's Plan of Care was discussed and reviewed with JENN MAGAÑA:
--- NOTE | 2022-03-03 21:45 | NUR ---
PATIENT IN BED SLEEPING. GAVE MEDICATION WITHOUT INCIDENT. KEPT PATIENT COMFORTABLE. NO NOTED PAIN/DISCOMFORT. NO S/S OF RESPIRATORY DISTRESS. NURSING WILL FREQUENT ROOM FOR ANTICIPATED NEEDS. [email or web address]
[2022-03-03] MEDS ORDERED: MELATONIN 3 MG TAB PO PRN ×2 (22:40→23:45)
--- NOTE | 2022-03-03 22:49 | NUR ---
PATIENT WOKE UP WITH A WET COUGH AND REQUEST COUGH MEDICATION AND SLEEPING PILL. NO NOTED ORDERS FOR SLEEPING PILL. NURSING USED [employer] Print System SENIOR INFORMATICA DEVELOPER [id number] TRANSLATED THE CONVERSATION AND NURSING REQUESTED SLEEP PRN. GAVE NEW ORDERS FOR ONCE FOR MELATONIN. NURSING WILL ADMINISTERED WHEN PHARMACY ACKNOWLEDGES THE ORDER. [email or web address]
--- NOTE | 2022-03-03 23:03 | NUR ---
SPOKE WITH PORTIA OF [facility],STATED TO START FLAGYL SCHEDULED ON THE EMAR.
--- NOTE | 2022-03-04 01:10 | NUR ---
DAUGHTER AT BEDSIDE PER ADMINISTRATION. PATIENT HAD BOWEL MOVEMENT NOT DIARRHEA. KEPT PATIENT CLEAN AND DRY. PATIENT WAS ABLE TO COUGH UP MUCUS. DAUGHTER WAS INFORMED HER MOTHER NEEDS TO COME IN TO SIGN CONSENT FOR AM PROCEDURE. PATIENT DENIES ANY PAIN/DISCOMFORT AT THIS TIME. SIDE RAILS X 2 FOR SAFETY AND COMFORT. [email or web address] .
--- NOTE | 2022-03-04 03:36 | NUR ---
PATIENT IN BED ASLEEP. NO NOTED PAIN OR RESPIRATORY DISTRESS. SIDE RAILS UP X 2 CALL LIGHT WITHIN REACH. [email or web address]
[2022-03-04 04:00] VITALS: BP 135/62
[2022-03-04] MEDS: metroNIDAZOLE 500 MG/NS PREMIX 100 ML IV SCH ×3 (04:19→21:46)
--- NOTE | 2022-03-04 05:19 | NUR ---
PATIENT EASY TO AROUSE. KEPT CLEAN AND DRY ALL NIGHT. NO NOTED S/S OF PAIN/DISCOMFORT. NO NOTED RESPIRATORY DISTRESS. SIDE RAILS UP X 2 FOR SAFETY AND COMFORT. NO NOTED SEIZURE ACTIVITY AT THIS SHIFT. CALL LIGHT WITHIN REACH. [email or web address]
[2022-03-04] MEDS: ALBUTEROL SULFATE/IPRATROPIU 3 ML SOL IH SCH ×3 (07:06→18:48)
--- NOTE | 2022-03-04 07:06 | NUR ---
RECEIVED ON SUPPLEMENTAL OXYGEN AT 5 LPM VIA OXYMIZER SATURATION 98% POST HHN THERAPY TITRATED FIO2 TO 4 LPM SARA/RN NOTIFIED
--- NOTE | 2022-03-04 07:20 | NUR ---
ENDORSED PATIENT TO SARA RN, PATIENT WAS STABLE AT THE CHANGE OF SHIFT. RECEIVED OVER THE PHONE CONSENT FOR PROCEDURE (THORACENTESIS) LATER TODAY. [email or web address]
[2022-03-04 07:29] LABS: BASOPHILS # (AUTO) 0.1 K/uL (0.00-0.22); BASOPHILS % (AUTO) 0.5 % (0.0-2.0); EOSINOPHILS # (AUTO) 0.3 K/uL (0-0.4); EOSINOPHILS % (AUTO) 1.3 % (0.0-4.0); HEMATOCRIT 27.1 % (36-52); HEMOGLOBIN 8.7 g/dL (12.0-18.0); LYMPHOCYTES % (AUTO) 4.9 % (20.5-51.1); MEAN CORPUSCULAR HEMOGLOBIN 30 pg (27-31); MEAN CORPUSCULAR HGB CONC 32 g/dL (33-37); MEAN CORPUSCULAR VOLUME 91.7 fL (80-94); MONOCYTES # (AUTO) 1.2 K/uL (0.8-1.0); MONOCYTES % (AUTO) 5.9 % (1.7-9.3); NEUTROPHILS # (AUTO) 18.4 K/uL (1.8-7.7); NEUTROPHILS % (AUTO) 87.4 % (42.2-75.2); PLATELET COUNT (AUTO) 345 K/uL (140-450); RED BLOOD CELL COUNT(AUTO) 2.95 MIL/uL (4.20-6.10); RED CELL DISTRIBUTION WIDTH 18.2 % (11.6-13.7); WHITE BLOOD COUNT (AUTO) 21.1 K/uL (4.8-10.8)
[2022-03-04 07:32] LABS: ANION GAP 16.6 (8-16); CARBON DIOXIDE 27.4 mmol/L (21-32)
[2022-03-04 07:43] LABS: CREATININE 4.3 mg/dL (0.6-1.3)
--- NOTE | 2022-03-04 07:53 | NUR ---
RECEIVE ENDORSEMENT FROM PM SHIFT NURSE WHILE PATIENT IN STABLE CONDITION W/ NO ACUTE DISTRESS NOTED. PIV R. FOREARM SALINE LOCK; WILL CONTINUE TO MONITOR
[2022-03-04 08:00] VITALS: BP 130/60
[2022-03-04] MEDS: BLOOD GLUCOSE MONITORING 1 DEV DEV FS SCH ×4 (08:21→20:54)
[2022-03-04] MEDS: lisinopriL 20 MG TAB PO SCH (09:00)
[2022-03-04] MEDS: amLODIPine 5 MG TAB PO SCH (09:00)
[2022-03-04] MEDS: hydrALAZINE 25 MG TAB PO SCH ×3 (09:00→17:10)
[2022-03-04] MEDS: VIT-B COMP/VIT-C/FOLIC ACID 1 TAB PO SCH (10:02)
[2022-03-04] MEDS: PANTOPRAZOLE 40 MG INJ VIAL IVP SCH (10:04)
[2022-03-04] MEDS: EPOETIN ALFA-EPBX 10,000 UNITS/ML VIAL SUBQ SCH (10:06)
[2022-03-04] MEDS: INSULIN LISPRO SLIDING SCALE 100 UNITS/ML VIAL SUBQ PRN (12:02)
--- NOTE | 2022-03-04 12:02 | NUR ---
P.T. NOTES ATTEMPTED P.T. TX, DAUGHTER PRESENT, REQUESTED TO ALLOW PATIENT TO SLEEP & REST DUE TO FATIGUE; REVIEWED HEP; DTR APPRECIATIVE; BED ALARM, CALL MEYER, PHONE, TABLE IN REACH; FF UP WHEN ABLE.
[2022-03-04] MEDS: GAUZE TP SCH (13:03)
[2022-03-04] MEDS: THERAHONEY GEL 42.5 GM TP SCH (13:03)
--- NOTE | 2022-03-04 14:48 | NUR ---
HEMODIALYSIS PROCEDURE IN PROGRESS SATURATION 98% ON FIO2 OF 4 LPM VIA OXYMIZER POST HHN THERAPY TITRATED FIO2 TO 3 LPM
--- NOTE | 2022-03-04 15:14 | NUR ---
ULTRASOUND GUIDED THORACENTESIS DONE WITH 950ML FLUID REMOVED. PATIENT TOLERATE PROCEDURE. SHORTLY AFTER THORACENTESIS COMPLETE, DR. BENTON VISITED PATIENT AND DID WOUND CARE, THEN, HEMODIALYSIS START. PER DIALYSIS NURSE THAT 2 LITER REMOVE TODAY. WILL CONTINUE TO MONITOR. Addendum: 03/08/22 at 1527 by Concha Gandhi RN DC PLANNING: PATIENT WAS TRANSFERRED TO ICU INTUBATED SEDATED FIO2 35% ON PROPOFOL DRIP AND FLAGYL IV ABX. S/P BRONCHOSCOPY INSERTED CHEST TUBE. ON HEMODIALYSIS. CARDIO,ID NEPHRO, SURGEON AND PULMO FOLLOWING. CM TO FOLLOW
--- NOTE | 2022-03-04 15:48 | NUR ---
DC PLANNING: NEW RIGHT IJ PLACED BY IR ON 03/01, REPEAT BLOOD CULTURES NEGATIVE TO DATE, PRIOR FINDINGS OF ENTEROCOCCUS FAECALIS. WBC'S SPIKED TO 30.9 YESTERDAY, TO 21.1 TODAY. US GUIDED THORACENTESIS DONE TODAY WITH 925 ML OUT, SENT FOR CULTURES. RIGHT FOOT WOUND CULTURES, FOOT XRAY NEGATIVE FOR OSTEO, PODIATRY CONSULTED. RECOMMENDATION FOR FUTURE I&D WHEN PATIENT IS MORE STABLE, WOUND CARE, CIRCULATION STUDIES OF RLE. ON FLAGYL IV, JUAN BOOTH. CM WILL FOLLOW. Addendum: 03/20/22 at 1338 by Sarah Stuart CM DC PLANNING: PATIENT WITH CHEST TUBE CLAMPED, PLAN FOR DC TODAY OR TOMORROW. LENY SPOKE WITH PATIENTS DAUGHTER GLENN TO ENDORSE POTENTIAL DC IN NEXT 24-48 HRS AND ALSO TO CONFIRM THAT PLAN IS FOR THE PATIENT TO RETURN HOME WITH FAMILY. GLENN WILL PROVIDE TRANSPORT FOR HER FATHER WHEN HE'S DC'D. LENY ALSO SPOKE WITH [facility] ([phone]), THE PATIENT'S CHAIR DAYS AND TIME OF M,W,F, AND S AT 9:10 HAVE NOT CHANGED, UPDATED CLINICAL FAXED TO THEM. ORDERS TO RESUME HOME HEALTH FAXED TO [facility] ([phone]) PATIENT AND FAMILY WOULD LIKE TO RESUME SERVICE WITH THEM. ORDERS FOR A HOSPITAL BED FAXED TO PAT[facility] INSURANCE [facility] PER FAMILY REQUEST. CM WILL FOLLOW. Addendum: 03/20/22 at 1437 by Sarah Stuart CM DC PLANNING: [facility] IS UNABLE TO RESUME SERVICE THEIR NURSE IS ON VACATION. LENY RECEIVED A MESSAGE FROM AN [facility] COORDINATOR ([phone] EXT [phone]) WHO STATES THAT THE HOSPITAL BED REQUEST HAS BEEN SENT TO [facility]. ORDER FOR HOME HEALTH FAXED TO [facility] FOR THEIR ASSISTANCE WITH FINDING AN AGENCY. LENY WILL FOLLOW. Addendum: 03/21/22 at 1334 by Sarah Stuart CM DC PLANNING: LENY SPOKE WITH THE COORDINATOR AT [facility] ([phone] [phone]) REGARDING HOME HEALTH FOR WOUND CARE AND PHYSICAL THERAPY. [facility] HAS BEEN WORKING ON HOME HEALTH BUT HASN'T FOUND AN AGENCY YET, THEY WILL CONTINUE WORKING ON THIS. LENY ALSO CALLED SEVERAL HOME HEALTH AGENCIES, SO FAR ALL HAVE DECLINED BUT CM WILL CONTINUE TO TRY. LENY ALSO SPOKE WITH THE PATIENTS DAUGHTER GLENN TO UPDATE HER ON LACK OF HOME HEALTH, GLENN IS WILLING TO DO THE PATIENTS WOUND CARE TO FOOT AND SACRUM UNTIL THE REGULAR NURSE FOR PATIENT FROM [facility] HAS RETURNED FROM VACATION. GLENN WILL BE IN LATER TODAY AFTER THE PATIENTS HOSPITAL BED IS DELIVERED, CM ENDORSED TO THE PATIENTS NURSE THAT GLENN NEEDS TO BE SHOWN WOUND CARE. SUPPLIES FOR FOOT AND SACRAL CARE WILL NEED TO BE SENT HOME WITH GLENN INCLUDING MEDIHONEY, SANTYL AND DRESSINGS. CM WILL FOLLOW. Addendum: 03/21/22 at 1402 by Sarah Stuart CM DC PLANNING: THE PATIENT IS ACCEPTED TO [facility] ([phone]) FOR PHYSICAL THERAPY AND WOUND CARE PER ERIK AT [facility]. LENY UPDATED THE PATIENTS DAUGHTER GLENN ON THIS. LENY WILL FOLLOW. Addendum: 03/22/22 at 1244 by Sarah Stuart CM DC PLANNING: LENY SPOKE WITH [facility] TO ENDORSE PATIENT DC TODAY, LET THEM KNOW THAT HE WILL HAVE HD FIRST SO HE MIGHT NOT LEAVE UNTIL LATER THIS EVENING AND FOR THEM TO PLAN ACCORDINGLY. CM ALSO SPOKE WITH THE PATIENTS DAUGHTER GLENN REGARDING DC, SHE HAS ALSO SPOKE WITH HOME HEALTH REGARDING THE INITIAL EVALUATION AND IS AWARE THAT HE'LL DC TODAY AND WILL PROVIDE TRANSPORT. NURSING TO PROVIDE WOUND CARE SUPPLIES FOR THE WEEKEND, ENDORSED TO PATIENTS RN. CM WILL FOLLOW.
[2022-03-04 16:00] VITALS: BP 153/68
[2022-03-04 18:00] LABS: APPEARANCE,SPUN,BODY FLUID CLEAR (CLEAR); APPEARANCE,UNSPUN,BODY FLUID CLEAR (CLEAR); COLOR,BODY FLUID YELLOW (LT YELLOW); SPECIMENTYPE,BODY FLUID THORACENTESIS
[2022-03-04 18:01] LABS: GLUCOSE,BODY FLUID 148 mg/dL; TOTAL VOLUME,BODY FLUID 950 mL
--- NOTE | 2022-03-04 19:38 | NUR ---
ENDORSE PATIENT TO PM SHIFT NURSE WITH STABLE CONDITION W/ NO ACUTE DISTRESS NOTED AFTER THORACENTESIS REMOVE 950ML FLUID AND DIALYSIS REMOVE 1 LITER. PIV R. FOREARM SALINE LOCK
--- NOTE | 2022-03-04 19:39 | NUR ---
RECEIVED PATIENT FROM SARA ROONEY, PATIENT WAS AWAKE AND STABLE. PATIENT WAS ABLE TO VERBALIZE TO TURBINE TECHNICIAN THAT HE WANTED A SLEEPING PILL FOR THE EVENING. NURSING WILL NOTIFY THE MD FOR AN ORDER. PATIENT DENIES ANY PAIN OR DISCOMFORT AT THIS TIME. PATIENT REMAINS ON OXYMIZER AT 4 LITERS. PATIENT WAS BREATHING WITHOUT DISTRESS WITH CHEST EVENLY RISING AND FALLING. NURSING NOTED A WET COUGH AND PATIENT USED ORAL YANKER TO SUCTION HIMSELF. MUCUS NOTED WHITISH BROWN MINIMAL. SIDE RAILS UP X 2 FOR COMFORT AND SAFETY. CALL LIGHT WITHIN REACH FOR TV STIMULATION. NURSING WILL FREQUENT THE ROOM FOR ANTICIPATED NEEDS AND WANTS. [email or web address]
--- NOTE | 2022-03-04 20:00 | NUR ---
PATIENT'S PLAN OF CARE WAS DISCUSSED AND REVIEWED WITH MARISA BARAJAS, CALL LIGHT IS WITHIN THE REACH, WILL CONTINUE TO MONITOR PATIENT.
[2022-03-04 21:55] LABS: POLYNUCLEAR, BODY FLUID 0 %; WBC, BODY FLUID 0 /cu. mm.
[2022-03-04 22:00] LABS: RBC, BODY FLUID 40000 /cu. mm.
[2022-03-04] MEDS ORDERED: ZOLPIDEM 5 MG TAB PO PRN (22:10)
--- NOTE | 2022-03-04 23:02 | NUR ---
PATIENT AWAKE IN BED STILL ATTEMPTING TO GET OUT OF BED. NURSING ADJUSTED RESTRAINTS TO MOVE EASY TO REPOSITIONED, THEN PLACED BACK TO SAFETY LEVEL. BED AT THE LOWEST LEVEL. NO NOTED S/S OF PAIN/DISCOMFORT. NO NOTED RESPIRATORY DISTRESS. NO NOTED SEIZURE ACTIVITY AT THIS TIME. NURSING WILL FREQUENT THIS ROOM FOR ANTICIPATED NEEDS AND SAFETY. [id number] Addendum: 03/04/22 at 2309 by Laney Stevens LVN DISREGARD ABOVE NOTED WRONG PATIENT. [id number]
--- NOTE | 2022-03-04 23:09 | NUR ---
PATIENT REQUEST MEDICATION FOR SLEEP. MD GAVE NEW ORDERS AND PATIENT WAS ABLE TO TAKE MEDICATION WITHOUT INCIDENT. NO NOTED SIDE EFFECTS AT THIS TIME. PATIENT'S BED LOWER TO THE LOWEST LEVEL. SIDE RAILS UP X 2. CALL LIGHT WITHIN REACH. PATIENT IS IS BLIND AND NURSING WILL FREQUENT FOR ANTICIPATED NEEDS AND WANTS. NO RESPIRATORY DISTRESS. PATIENT IS BREATHING EVENLY WITHOUT COUGHING AT THIS TIME. [email or web address]
--- NOTE | 2022-03-05 01:08 | NUR ---
PATIENT IN BED ASLEEP. NO NOTED PAIN. NO NOTED RESPIRATORY DISTRESS. BREATHING EVENLY WITH CHEST RISING AND FALLING. NO NOTED COUGH. SIDE RAILS UP X 2. CALL LIGHT WITH IN REACH FOR TV LISTENING. PATIENT IS BLIND AND NURSING WILL FREQUENT THE ROOM ON ANTICIPATION FOR NEEDS AND WANTS. [email or web address]
--- NOTE | 2022-03-05 03:46 | NUR ---
PATIENT IN BED ASLEEP WITH FAMILY MEMBER AT BEDSIDE. PATIENT HAS NO NOTED S/S OF PAIN/DISCOMFORT. NO NOTED RESPIRATORY DISTRESS. HEAD OF BED ELEVATED TO IMPROVE BREATHING EFFORTS. SIDE RAILS UP X 2 FOR COMFORT. CALL LIGHT WITHIN REACH BUT NURSING FREQUENTS THE ROOM FOR ANTICIPATED NEEDS AND WANTS. [email or web address]
[2022-03-05 04:00] VITALS: BP 146/92
--- NOTE | 2022-03-05 05:43 | NUR ---
PATIENT REMAINS ASLEEP WHILE BLOOD DRAW. NO NOTED S/S OF PAIN/DISCOMFORT. NO NOTED RESPIRATORY DISTRESS. PATIENT HEAD OF BED ELEVATED TO IMPROVED BREATHING. BED AT THE LOWEST LEVEL. CALL LIGHT WITHIN REACH. PATIENT IS BLIND SO NURSING WILL FREQUENT THE ROOM FOR ASSISTANCE. FAMILY STILL AT BEDSIDE PER THE DIRECTOR OF [facility]. [email or web address]
[2022-03-05] MEDS: metroNIDAZOLE 500 MG/NS PREMIX 100 ML IV SCH ×3 (06:03→21:33)
[2022-03-05] MEDS: BLOOD GLUCOSE MONITORING 1 DEV DEV FS SCH ×4 (06:58→21:32)
[2022-03-05] MEDS: ALBUTEROL SULFATE/IPRATROPIU 3 ML SOL IH SCH ×3 (07:00→19:00)
[2022-03-05 07:08] LABS: BASOPHILS # (AUTO) 0.1 K/uL (0.00-0.22); BASOPHILS % (AUTO) 0.7 % (0.0-2.0); EOSINOPHILS # (AUTO) 0.3 K/uL (0-0.4); HEMATOCRIT 28.7 % (36-52); HEMOGLOBIN 9.4 g/dL (12.0-18.0); LYMPHOCYTES # (AUTO) 0.7 K/uL (2.0-11.5); LYMPHOCYTES % (AUTO) 4.7 % (20.5-51.1); MEAN CORPUSCULAR HEMOGLOBIN 30 pg (27-31); MEAN CORPUSCULAR HGB CONC 33 g/dL (33-37); MEAN CORPUSCULAR VOLUME 91.7 fL (80-94); MONOCYTES % (AUTO) 6.4 % (1.7-9.3); NEUTROPHILS # (AUTO) 13.5 K/uL (1.8-7.7); NEUTROPHILS % (AUTO) 86.2 % (42.2-75.2); PLATELET COUNT (AUTO) 359 K/uL (140-450); RED BLOOD CELL COUNT(AUTO) 3.13 MIL/uL (4.20-6.10); RED CELL DISTRIBUTION WIDTH 18.2 % (11.6-13.7); WHITE BLOOD COUNT (AUTO) 15.6 K/uL (4.8-10.8)
--- NOTE | 2022-03-05 07:09 | NUR ---
ENDORSED PATIENT TO SANTHOSH ROONEY FOR CONTINUITY OF CARE, PATIENT WAS STABLE DURING THE CHANGE OF SHIFT. [email or web address]
--- NOTE | 2022-03-05 07:09 | NUR ---
RECEIVED REPORT FROM NIGHTSHIFT NURSE MARISA FOR CONTINUITY OF CARE. PT IN STABLE CONDITION, CURRENTLY SLEEPING AND A/OX3. BREATHING IS EVEN, REGULAR AND SHALLOW ON 4L OXYMIZER. PT IS INCONTINENT OF THE BOWEL AND BLADDER. PT HAS NONBLANCHABLE REDNESS ON SACRUM, DRESSING CLEAN, DRY, AND INTACT. DRESSING ON LEFT FOOT WOUND IS ALSO CLEAN DRY, AND INTACT. DRESSING ON BACK FROM THORACENTESIS INTACT, WITH MINOR YELLOW DRAINAGE. PT DENIES PAIN AT THIS TIME, NO DISTRESS NOTED. FAMILY AT THE BEDSIDE.
[2022-03-05 08:00] VITALS: BP 151/76
[2022-03-05] MEDS: VIT-B COMP/VIT-C/FOLIC ACID 1 TAB PO SCH (08:31)
[2022-03-05] MEDS: PANTOPRAZOLE 40 MG INJ VIAL IVP SCH (08:31)
[2022-03-05] MEDS: hydrALAZINE 25 MG TAB PO SCH ×3 (08:32→16:41)
[2022-03-05] MEDS: lisinopriL 20 MG TAB PO SCH (08:32)
[2022-03-05] MEDS: amLODIPine 5 MG TAB PO SCH (08:32)
--- NOTE | 2022-03-05 09:00 | NUR ---
PT CURRENTLY AWAKE AND EATING WELL. DENIES PAIN AT THIS TIME. PT IN STABLE CONDITION.
--- NOTE | 2022-03-05 11:00 | NUR ---
PT CURRENTLY ASLEEP, NO SIGNS OF PAIN OR DISTRESS NOTED AT THIS TIME.
[2022-03-05] MEDS: INSULIN LISPRO SLIDING SCALE 100 UNITS/ML VIAL SUBQ PRN (11:49)
--- NOTE | 2022-03-05 13:00 | NUR ---
PT CURRENTLY ASLEEP, NO SIGNS OF PAIN OR DISTRESS NOTED AT THIS TIME.
[2022-03-05] MEDS: GAUZE TP SCH (13:34)
[2022-03-05] MEDS: THERAHONEY GEL 42.5 GM TP SCH (13:34)
[2022-03-05 14:35] LABS: ANION GAP 15.6 (8-16); CREATININE 3.6 mg/dL (0.6-1.3); POTASSIUM 3.6 mmol/L (3.5-5.1)
--- NOTE | 2022-03-05 15:00 | NUR ---
PT CURRENTLY ASLEEP, NO SIGNS OF PAIN OR DISTRESS NOTED AT THIS TIME.
[2022-03-05 16:00] VITALS: BP 140/66
[2022-03-05] MEDS: ACETAMINOPHEN 325 MG TAB PO PRN (16:41)
--- NOTE | 2022-03-05 16:42 | NUR ---
ADMINISTERED PRN TYLENOL FOR FEVER OF 100.3.
--- NOTE | 2022-03-05 18:00 | NUR ---
BURKE BULL CALLED ME AFTER BED BATH, PT WAS UNRESPONSIVE. ON SITE, PT HAD NO PULSE. CODE BLUE WAS CALLED, CODE TEAM ARRIVED ON SCENE. AFTER 1X COMPRESSION GIVEN, PT WOKE UP AND WAS SLOWLY RESPONDING. PT HAD EPISODES OF AGONAL BREATHING, PT PLACED ON BIPAP. DR. COYLE NOTIFIED, NEW ORDERS RECEIVED AND MD TO SEE PT. FAMILY WAS CALLED AND UPDATED. PT IN STABLE CONDITION AND RESPONSIVE. PT DENIES ANY PAIN OR DISTRESS, V/S WNL, TELE SHOWS PT AT SINUS RHYTHM 100 HR. SPO2 100% ON BIPAP. BLOOD SUGAR 130.
--- NOTE | 2022-03-05 18:15 | NUR ---
RT NOTES @1815 CODE PREM CALLED FOR PT ONCE ARRIVED TO BEDSIDE DR. FELIX WAS AT BEDSIDE CHANGED CODE TO RAPID RESPONSE. PT ALTERED BUT RESPONSIVE. DR FELIX ORDERED BIPAP FOR PT. WILL CONTINUE TO MONITOR.
[2022-03-05 19:26] LABS: HEMOGLOBIN 8.2 g/dL (12.0-18.0); MEAN CORPUSCULAR HEMOGLOBIN 30 pg (27-31); MEAN CORPUSCULAR HGB CONC 33 g/dL (33-37); MEAN CORPUSCULAR VOLUME 90.8 fL (80-94); PLATELET COUNT (AUTO) 343 K/uL (140-450); RED BLOOD CELL COUNT(AUTO) 2.76 MIL/uL (4.20-6.10); RED CELL DISTRIBUTION WIDTH 17.5 % (11.6-13.7)
--- NOTE | 2022-03-05 19:33 | NUR ---
ENDORSED PT TO NIGHTSCAFT NURSE ELIZABETH FOR CONTINUITY OF CARE. PT IN STABLE CONDITION.
[2022-03-05 19:41] LABS: ALBUMIN 1.8 g/dL (3.4-5.0); ANION GAP 17.7 (8-16); ASPARTATE AMINOTRANSFERASE 22 U/L (15-37); CHLORIDE 98 mmol/L (98-107); GFR ARICAN-AMERICAN 19 mL/min (>90); GLUCOSE 131 mg/dL (74-106); POTASSIUM 3.7 mmol/L (3.5-5.1); SODIUM SERUM 137 mmol/L (136-145); TOTAL BILIRUBIN 1.3 mg/dL (0.0-1.0); UREA NITROGEN, BLOOD 42 mg/dL (7-18)
[2022-03-05 19:49] LABS: CREATININE 4.1 mg/dL (0.6-1.3)
[2022-03-05 20:00] VITALS: BP 133/55
[2022-03-05 20:46] LABS: LYMPHOCYTES % (MANUAL) 2 % (20-46)
[2022-03-05 20:47] LABS: EOSINOPHILS % (MANUAL) 1 % (0-4); METAMYELOCYTES % 2 % (0-0); MONOCYTES % (MANUAL) 7 % (5-12)
[2022-03-05 21:19] LABS: PHOSPHORUS 4.8 mg/dL (2.5-4.9)
[2022-03-06] VITALS: BP 148/62
--- NOTE | 2022-03-06 01:20 | NUR ---
PER PATIENT REQUEST REMOVED BI-PAP. PLACED BACK ON 5L OXYMIZER PT IS SATURATING 100%. AND IS NO RESPIRATORY DISTRESS. WILL CONTINUE TO MONITOR
[2022-03-06 04:00] VITALS: BP 133/59
[2022-03-06] MEDS: metroNIDAZOLE 500 MG/NS PREMIX 100 ML IV SCH ×3 (05:11→21:14)
[2022-03-06] MEDS: ALBUTEROL SULFATE/IPRATROPIU 3 ML SOL IH SCH ×2 (07:15→19:49)
[2022-03-06 07:16] LABS: BASOPHILS # (AUTO) 0.1 K/uL (0.00-0.22); BASOPHILS % (AUTO) 0.5 % (0.0-2.0); EOSINOPHILS # (AUTO) 0.1 K/uL (0-0.4); EOSINOPHILS % (AUTO) 0.7 % (0.0-4.0); HEMATOCRIT 25.4 % (36-52); HEMOGLOBIN 8.2 g/dL (12.0-18.0); LYMPHOCYTES # (AUTO) 0.9 K/uL (2.0-11.5); LYMPHOCYTES % (AUTO) 4.5 % (20.5-51.1); MEAN CORPUSCULAR HEMOGLOBIN 30 pg (27-31); MEAN CORPUSCULAR HGB CONC 33 g/dL (33-37); MONOCYTES # (AUTO) 1.4 K/uL (0.8-1.0); MONOCYTES % (AUTO) 6.9 % (1.7-9.3); NEUTROPHILS # (AUTO) 17.5 K/uL (1.8-7.7); NEUTROPHILS % (AUTO) 87.4 % (42.2-75.2); PLATELET COUNT (AUTO) 331 K/uL (140-450); RED BLOOD CELL COUNT(AUTO) 2.79 MIL/uL (4.20-6.10); RED CELL DISTRIBUTION WIDTH 17.6 % (11.6-13.7); WHITE BLOOD COUNT (AUTO) 19.9 K/uL (4.8-10.8)
[2022-03-06 07:19] LABS: ANION GAP 15.5 (8-16); CARBON DIOXIDE 27.2 mmol/L (21-32); POTASSIUM 3.7 mmol/L (3.5-5.1)
--- NOTE | 2022-03-06 07:25 | NUR ---
RECEIVED PT FROM NIGHT RN, PT IS ASLEEP, LYING ON THE BED WITH SIDE RAILS UP AND CALL LIGHT WITHIN REACH, FAMILY ON THE BED SIDE, PT IS ON OXYMIZER AT O2 3L SATURATING AT 97%, PT HAS A RIGHT UPPER CHEST MONY CATHETER FOR DIALYSIS ACCESS, IV LINE NOTED ON THE RFA G.20 ON SALINE LOCK, NO SIGN OF DISTRESS NOTED AND WILL CONTINUE TO MONITOR PT.
[2022-03-06 07:27] LABS: CREATININE 4.5 mg/dL (0.6-1.3)
[2022-03-06] MEDS: BLOOD GLUCOSE MONITORING 1 DEV DEV FS SCH ×4 (07:27→21:20)
[2022-03-06 08:00] VITALS: BP 122/54
[2022-03-06] MEDS: amLODIPine 5 MG TAB PO SCH (09:00)
[2022-03-06] MEDS: hydrALAZINE 25 MG TAB PO SCH ×3 (09:00→17:36)
[2022-03-06] MEDS: lisinopriL 20 MG TAB PO SCH (09:00)
--- NOTE | 2022-03-06 09:40 | NUR ---
PT WAS CLEANED AND REPOSITIONED NOW.
[2022-03-06] MEDS: VIT-B COMP/VIT-C/FOLIC ACID 1 TAB PO SCH (09:44)
[2022-03-06] MEDS: PANTOPRAZOLE 40 MG INJ VIAL IVP SCH (09:44)
[2022-03-06] MEDS: EPOETIN ALFA-EPBX 10,000 UNITS/ML VIAL SUBQ SCH (09:48)
[2022-03-06 12:00] VITALS: BP 137/66
[2022-03-06] MEDS ORDERED: THERAHONEY WOUND DRESSING TP PRN (12:15)
--- NOTE | 2022-03-06 12:15 | NUR ---
WOUND CARE ASSESSMENT WAS DONE BY MANAGER ENTRY AND REINFORCEMENT
--- NOTE | 2022-03-06 12:17 | NUR ---
WOUND CARE RE-EVALUATION NOTE: SKIN ASSESSMENT DONE WITH PRIMARY RN ,WOUND PHOTO OBTAINED. DAUGHTER AND AT BED SIDE, ALL QUESTIONS ANSWERED. SACRALCOCCYX WOUND RESURFACING WITH SURROUNDING NON-BLANCHABLE REDNESS RESOLVED, DAUGHTER GLENN ALSO SEEN WOUNDS AND PLEASE THE IMPROVING WITH CURRENT TX. POC DISCUSSED WITH PRIMARY RN. INTEGUMENTARY: -INCONTINENT ASSOCIATE DERMATITIS (IAD) TO: B/L GROINS, INNER THIGH AND POSTERIOR THIGH TO SCROTAL, SKIN PINK AND INTACT -PRESSURE INJURY STAGE 3, SACROCOCCYX 3X2X0.1CM, BED IS RED 100% GRANULATING TISSUE, MOIST, NO ODOR, CHARLENE-WOUND SKIN MOIST, HEALING SCAR TISSUE, SURROUNDING NON-BLANCHABLE REDNESS RESOLVED -PRESSURE INJURY UN-STAGEABLE, LEFT HEEL 5X4CM WOUND BED IS RED 10% BROWN/BLACK SLOUGH TISSUE, 90% LIGHT YELLOW SLOUGH TISSUE SMALL AMOUNT SEROUS DRAINAGE, NO ODOR, CHARLENE WOUND DENUDED SKIN WITH SURROUNDING DTI RESOLVED, SKIN MUSHY AND INTACT
[2022-03-06] MEDS: INSULIN LISPRO SLIDING SCALE 100 UNITS/ML VIAL SUBQ PRN ×3 (12:42→21:28)
--- NOTE | 2022-03-06 12:46 | NUR ---
PT WAS GIVEN IVPB FLAGYL
[2022-03-06] MEDS: GAUZE TP SCH (12:59)
[2022-03-06] MEDS: THERAHONEY WOUND DRESSING TP SCH (12:59)
[2022-03-06 16:00] VITALS: BP 144/71
--- NOTE | 2022-03-06 16:14 | NUR ---
ENDORSED PT TO HERMINIO ROONEY FOR CONTINUITY OF CARE, PT IS STILL HAVING DIALYSIS AND IS STABLE AT THIS TIME.
--- NOTE | 2022-03-06 16:14 | NUR ---
RECEIVED REPORT FROM SHANTI FOR CONTINUITY OF CARE PATIENT STILL ON GOING DIALYSIS AT THIS TIME.
--- NOTE | 2022-03-06 16:48 | NUR ---
PATIENT JUST FINISH DIALYSIS OBTAIN 2 LITER OF FLUID. PATIENT ON STABLE CONDITION.
--- NOTE | 2022-03-06 17:44 | NUR ---
PATIENT CHANGE AND MAKE COMFORTABLE ON BED. AT BED SIDE. BLOOD SUGAR CHECKED GIVEN INSULIN 2 UNITS FOR BLOOD SUGAR OF 184 AND GIVEN HYDRALAZINE ORDER. CALL LIGHT WITH IN EASY REACH.
[2022-03-06] MEDS: guaiFENesin DM 200/20 MG-10 ML 10 ML UDC PO PRN (18:01)
--- NOTE | 2022-03-06 18:11 | NUR ---
PATIENT COMPLAIN OF COUGHING MEDICATED ORDERED. RN STARTED IV ANTIBIOTIC.
[2022-03-06] MEDS ORDERED: VANCOMYCIN 1,000 MG in DEXTROSE 5% 250 ML IV SCH (19:00)
--- NOTE | 2022-03-06 19:18 | NUR ---
GAVE REPORT TO ASSISTANT STORE DIRECTOR NURSE CALRA FOR CONTINUITY OF CARE. PATIENT ON BED ASLEEP. NO ADVERSE REACTION NOTED ON IV ANTIBIOTIC. CALL LIGHT WITH IN EASY REACH. AT BED SIDE.
[2022-03-06 20:00] VITALS: BP 151/75
[2022-03-06] MEDS ORDERED: GENTAMICIN 60 MG in DEXTROSE 5% 100 ML IV SCH (21:00)
[2022-03-06] MEDS ORDERED: GENTAMICIN 80 MG/2 ML VIAL ONE (21:23)
[2022-03-07] VITALS: BP 150/77
[2022-03-07 04:00] VITALS: BP 149/76
[2022-03-07] MEDS: metroNIDAZOLE 500 MG/NS PREMIX 100 ML IV SCH ×3 (04:44→20:35)
[2022-03-07] MEDS: BLOOD GLUCOSE MONITORING 1 DEV DEV FS SCH ×4 (06:34→20:49)
[2022-03-07] MEDS: ALBUTEROL SULFATE/IPRATROPIU 3 ML SOL IH SCH ×3 (07:00→19:00)
--- NOTE | 2022-03-07 07:43 | NUR ---
RECEIVE ENDORSEMENT FROM PM SHIFT NURSE THAT PATIENT REST IN BED, PIV R. FOREARM SALINE LOCK, DIALYSIS TUNNEL/MONY CATHETER R. UPPER CHEST. WILL CONTINUE TO MONITOR
[2022-03-07 08:00] VITALS: BP 132/64
[2022-03-07] MEDS: PANTOPRAZOLE 40 MG INJ VIAL IVP SCH (09:52)
[2022-03-07] MEDS: VIT-B COMP/VIT-C/FOLIC ACID 1 TAB PO SCH (10:03)
[2022-03-07] MEDS: amLODIPine 5 MG TAB PO SCH (10:03)
[2022-03-07] MEDS: lisinopriL 20 MG TAB PO SCH (10:04)
[2022-03-07] MEDS: hydrALAZINE 25 MG TAB PO SCH ×3 (10:04→16:47)
[2022-03-07 11:10] LABS: BASOPHILS # (AUTO) 0.1 K/uL (0.00-0.22); BASOPHILS % (AUTO) 0.9 % (0.0-2.0); EOSINOPHILS # (AUTO) 0.4 K/uL (0-0.4); EOSINOPHILS % (AUTO) 2.5 % (0.0-4.0); HEMATOCRIT 26.8 % (36-52); HEMOGLOBIN 8.8 g/dL (12.0-18.0); LYMPHOCYTES % (AUTO) 6.7 % (20.5-51.1); MEAN CORPUSCULAR HEMOGLOBIN 30 pg (27-31); MEAN CORPUSCULAR HGB CONC 33 g/dL (33-37); MEAN CORPUSCULAR VOLUME 91.9 fL (80-94); MONOCYTES # (AUTO) 1.3 K/uL (0.8-1.0); NEUTROPHILS # (AUTO) 11.8 K/uL (1.8-7.7); NEUTROPHILS % (AUTO) 80.9 % (42.2-75.2); PLATELET COUNT (AUTO) 371 K/uL (140-450); RED BLOOD CELL COUNT(AUTO) 2.92 MIL/uL (4.20-6.10); RED CELL DISTRIBUTION WIDTH 17.7 % (11.6-13.7); WHITE BLOOD COUNT (AUTO) 14.5 K/uL (4.8-10.8)
[2022-03-07 11:33] LABS: ALBUMIN 1.7 g/dL (3.4-5.0); ANION GAP 12.7 (8-16); CARBON DIOXIDE 27.1 mmol/L (21-32); CREATININE 3.4 mg/dL (0.6-1.3); POTASSIUM 3.8 mmol/L (3.5-5.1); TOTAL BILIRUBIN 1.1 mg/dL (0.0-1.0)
[2022-03-07] MEDS: INSULIN LISPRO SLIDING SCALE 100 UNITS/ML VIAL SUBQ PRN ×2 (11:55→20:51)
[2022-03-07 12:00] VITALS: BP 138/71
[2022-03-07] MEDS: GAUZE TP SCH (13:12)
[2022-03-07] MEDS: THERAHONEY WOUND DRESSING TP SCH (13:12)
[2022-03-07] MEDS ORDERED: VANCOMYCIN PER PHARMACY MC PRN (14:25)
--- NOTE | 2022-03-07 14:52 | NUR ---
03/07/22 RD FOLLOW UP COMPLETED PLEASE REFER TO NUTRITION ASSESSMENT UNDER CARE ACTIVITY FOR ESTIMATED NUTRITIONAL NEEDS. 1. CONTINUE CHO 60 GM + RENAL DIET WITH MECHANICAL SOFT TEXTURE MODIFICATION TOLERATED. - PROSOURCE BID FOR NUTRITION THERAPY/WOUND HEALING. 2.RECOMMEND NEPRO TID 3. MONITOR PO INTAKE 4. RD TO FOLLOW-UP 3-5 DAYS, MODERATE RISK REVIEWED BY MARANDA SNOWDEN RD
--- NOTE | 2022-03-07 15:46 | NUR ---
PATIENT IS PLACE ON NPO FOR LUNCH D/T US CHEST PENDING. PATIENT IS NOT VERY AWAKE, SLEEPING MOST TIME. WILL CONTINUE TO MONITOR.
[2022-03-07 16:00] VITALS: BP 136/72
--- NOTE | 2022-03-07 19:30 | NUR ---
RECEIVED REPORT FROM AM NURSE SARA. PATIENT IN BED SLEEPING HEAD OF BED ELEVATED WITH O2 ON. NO S/S OF RESPIRATORY DISTRESS. BREATHING NORMAL UNLABORED. DIALYSIS ACCESS ON THE RIGHT UPPER CHEST MONY CATHETER. IV ACCESS ON THE RIGHT FOREARM INTACT AND PATENT. ALL SAFETY PRECAUTIONS ARE IN PLACE. WHEELS OF BED LOCKED. AT BEDSIDE. WILL CONTINUE TO MONITOR .
--- NOTE | 2022-03-07 19:43 | NUR ---
ENDORSE PATIENT TO PM SHIFT NURSE THAT PATIENT REST IN BED, PIV R. FOREARM SALINE LOCK, DIALYSIS TUNNEL/MONY CATHETER R. UPPER CHEST. PATIETN JUST RETURN FROM CHEST CT. CHEST US DON IN THE AFTERNOON
[2022-03-07 20:00] VITALS: BP 126/54
--- NOTE | 2022-03-07 20:35 | NUR ---
SCHEDULED MEDICATIONS GIVEN PER MD ORDER.
--- NOTE | 2022-03-07 20:49 | NUR ---
BLOOD SUGAR WAS 163, HUMALOG INSULIN ADMINISTERED ORDERED PER SLIDING SCALE.
--- NOTE | 2022-03-07 23:20 | NUR ---
ANSWERED CALL LIGHT, NEEDS ATTENDED AND MET. BREATHING NORMAL NON LABORED.
[2022-03-08] VITALS (24 sets, daily range): BP systolic 124–185; BP diastolic 62–92
--- NOTE | 2022-03-08 00:43 | NUR ---
PATIENT SLEEPING. CHEST RISE AND FALL SYMMETRICALLY. SAFETY MEASURES IN PLACE. CALL LIGHT WITHIN REACH.
--- NOTE | 2022-03-08 02:45 | NUR ---
PATIENT IS DESATING 84 % O2 INCREASED TO 8LPM WENT UP TO 89 THEN CALLED RT.
--- NOTE | 2022-03-08 02:48 | NUR ---
RT WENT TO CHECK THE PATIENT. REQUESTED TO GET A ORDER TO SUCTION THE PATIENT.
--- NOTE | 2022-03-08 02:52 | NUR ---
DR BIGGS ORDERED TO SUCTION THE PATIENT. CALLED RAPID RESPONSE. Addendum: 03/08/22 at 0450 by Anahy Kelley RN RN CALLED RAPID RESPONSE DUE TO PATIENT IS UNRESPONSIVE. O2 SAT 98%.
--- NOTE | 2022-03-08 02:53 | NUR ---
RESPONDED TO RAPID RESPONSE. PULSE CHECKED. PT HAS A PULSE BUT AGONAL BREATHING. VENTILATION AND OXYGENATION WAS INITIATED VIA AMBU BAG BY RT. GALILEA GUIDRY WAS CALLED TO BEDSIDE. PT WAS SUCCESSFULLY INTUBATED BY DR. GUIDRY WITH ETT SIZE 8.0 AND SECURED WITH ANCHOR-FAST AT 24cm @TEETH. COLOR CHANGE ON CO2 DETECTOR. BILATERAL BREATH SOUNDS ON AUSCULTATION. X'RAY WAS ORDERED BY GALILEA. VERBAL ORDER FOR SPUTUM AND ABG WAS OBTAINED. PT WAS THEN TRANSPORTED TO ICU. PLACED PT ON VENT SUPPORT. VENT PLUGGED IN RED OUTLET. ALARMS SET AND AUDIBLE. WILL CONTINUE TO MONITOR PT.
--- NOTE | 2022-03-08 02:56 | NUR ---
CALLED DR. BIGGS WITH ORDERS, NOTED AND CARRIED OUT.
--- NOTE | 2022-03-08 03:23 | NUR ---
PATIENT WAS INTUBATED BY DR. GUIDRY. Addendum: 03/08/22 at 0455 by Anahy Kelley RN RN V/S: 113/64 , 79 , 24 , 98 , 95%.
--- NOTE | 2022-03-08 03:45 | NUR ---
PATIENT WAS TRANSFERRED TO ICU, SATING AT 99%, UNRESPONSIVE. Addendum: 03/08/22 at 0457 by Anahy Kelley RN RN REPORT GIVEN TO ICU NURSE FOR CONTINUITY OF CARE.
--- NOTE | 2022-03-08 03:50 | NUR ---
TRANS IN FROM TELE THIS 61 YEAR OLD MALE PATIENT; POST EXECUTIVE CREATIVE DIRECTOR, INTUBATED AND VENTILATED. ADMITTED IN ICU 33 HOOKED TO PRINCIPAL BIOSTATISTICIAN; SCOPE SHOWS ON SINUS RHYTHM HR 85/MIN. IV PROPOFOL IN PROGRESS AT 5 MCG/KG/MIN VIA G 20 IV CANNULA ON RIGHT ARM. DIALYSIS ACCESS NOTED ON RIGHT SUBCLAVIAN; INTACT.
[2022-03-08 04:04] LABS: HEMOGLOBIN 9.1 g/dL (12.0-18.0); MEAN CORPUSCULAR HEMOGLOBIN 30 pg (27-31); MEAN CORPUSCULAR HGB CONC 33 g/dL (33-37); MEAN CORPUSCULAR VOLUME 91.7 fL (80-94); PLATELET COUNT (AUTO) 381 K/uL (140-450); RED BLOOD CELL COUNT(AUTO) 3.05 MIL/uL (4.20-6.10); RED CELL DISTRIBUTION WIDTH 17.5 % (11.6-13.7); WHITE BLOOD COUNT (AUTO) 16.3 K/uL (4.8-10.8)
--- NOTE | 2022-03-08 04:35 | NUR ---
SPUTUM SAMPLE COLLECTED AND SENT TO LAB
--- NOTE | 2022-03-08 04:50 | NUR ---
ABG RESULTS WERE GIVEN TO DR. GUIDRY. AGREED TO INCREASE TIDAL VOLUME FROM 450 TO 500. CHANGES MADE TO VENT. FIO2 TITRATED FROM 100% TO 40%. PT IN NO RESPIRATORY DISTRESS AT THIS TIME. WILL CONTINUE TO MONITOR PT.
[2022-03-08 04:51] LABS: ANION GAP 17.1 (8-16); CARBON DIOXIDE 25.4 mmol/L (21-32); POTASSIUM 4.5 mmol/L (3.5-5.1)
[2022-03-08] MEDS: metroNIDAZOLE 500 MG/NS PREMIX 100 ML IV SCH ×2 (05:00→13:57)
[2022-03-08] MEDS ORDERED: MORPHINE SULFATE 2 MG/ML SYR IVP PRN (05:45)
[2022-03-08] MEDS ORDERED: ONDANSETRON 4 MG/2 ML VIAL IVP PRN (05:45)
[2022-03-08] MEDS: ONDANSETRON 4 MG/2 ML VIAL IM/IVP PRN (06:28)
[2022-03-08] MEDS: PROPOFOL 1000 MG/100 ML PREMIX 100 ML IV PRN ×4 (06:32→21:46)
--- NOTE | 2022-03-08 07:30 | NUR ---
RECEIVED BEDSIDE REPORT FROM LAMAR KIM RN FOR CONTINUITY OF CARE. PT SEDATED RASS -3, SUPINE IN THE BED. ETT TO VENT ACPRVC FIO2 35% VT 500 R 20 PEEP 5. COARSE CRACKLES LUNG SOUNDS. SR ON BEDSIDE MONITOR. RFA 20G IV PATENT. INFUSING PROPOFOL AT 5 MCG/KG/MIN, AND FLAGYL AT 100 ML/H. RIJ MONY CATH IN PLACE, CLEAN DRY INTACT. AUSCULTATED S 1 AND 2. BOWEL SOUNDS ACTIVE, LAST BM 03/07. PT ANURIC. W GENERALIZED WEAKNESS TO BUE BLE. SKIN NOT INTACT, SEE WOUND ASSESSMENT. ON STANDARD ISOLATION. SAFETY PRECAUTIONS MET. CALL LIGHT WITHIN REACH. INITIAL ASSESSMENT COMPLETE, WILL CONTINUE TO CLOSELY MONITOR.
[2022-03-08] MEDS: BLOOD GLUCOSE MONITORING 1 DEV DEV FS SCH ×4 (07:58→23:55)
--- NOTE | 2022-03-08 08:10 | NUR ---
DR DIAN FENG AT BEDSIDE. NO NEW ORDERS.
[2022-03-08] MEDS: ALBUTEROL SULFATE/IPRATROPIU 3 ML SOL IH SCH ×2 (08:11→19:27)
[2022-03-08] MEDS: PANTOPRAZOLE 40 MG INJ VIAL IVP SCH (08:13)
[2022-03-08] MEDS: EPOETIN ALFA-EPBX 10,000 UNITS/ML VIAL SUBQ SCH (08:14)
[2022-03-08] MEDS: hydrALAZINE 25 MG TAB PO SCH ×3 (08:15→16:59)
[2022-03-08] MEDS: lisinopriL 20 MG TAB PO SCH (08:15)
[2022-03-08] MEDS: amLODIPine 5 MG TAB PO SCH (08:16)
[2022-03-08] MEDS: VIT-B COMP/VIT-C/FOLIC ACID 1 TAB PO SCH (08:16)
--- NOTE | 2022-03-08 09:20 | NUR ---
PT , JAMISON AT BEDSIDE, WITH GLENN PT DAUGHTER/DECISION MAKER ON PT PHONE. OBTAINED TELEPHONE CONSENT FROM GLENN FOR CHEST TUBE INSERTION WITH RHETT RN WITNESS. JAMISON AGREEABLE.
--- NOTE | 2022-03-08 10:20 | NUR ---
DR MARTA FENG AT BEDSIDE.
--- NOTE | 2022-03-08 10:45 | NUR ---
PT DAUGHTER, GLENN, AT BEDSIDE WITH, JAMISON PT .
--- NOTE | 2022-03-08 10:50 | NUR ---
OBTAINED CONSENT FROM GLENN VIA TELEPHONE AND JAMISON AT [facility] WITH [employer]ED [employer]S [employer] PHONE, PATRICIA, ID #[id number], FOR BRONCOSCOPY, DR LOZANO PERFORMED AT BEDSIDE. RT AT BEDSIDE.
[2022-03-08] MEDS: ACETAMINOPHEN 325 MG TAB PO PRN (12:00)
--- NOTE | 2022-03-08 12:00 | NUR ---
PT TAKEN TO CT WITH ASSIST FROM RT FRANKS AND ELECTROENCEPHALOGRAM TECHNOLOGIST.
--- NOTE | 2022-03-08 13:10 | NUR ---
PT BACK FROM CT, CHEST TUBE TO LOW CONTINUOUS SUCTION. PT TOLERATE PROCEDURE WELL.
--- NOTE | 2022-03-08 13:30 | NUR ---
HD RN AT BEDSIDE, STARTING DIALYSIS THROUGH RT IJ MONY CATHETER. PT DAUGHTER FE AT BEDSIDE, UPDATED REGARDING PT CONDITION, ALL QUESTIONS ANSWERED AT THIS TIME.
[2022-03-08] MEDS: THERAHONEY WOUND DRESSING TP SCH (13:57)
[2022-03-08] MEDS: GAUZE TP SCH (13:57)
[2022-03-08 15:15] LABS: APPEARANCE,SPUN,BODY FLUID CLEAR (CLEAR); APPEARANCE,UNSPUN,BODY FLUID CLEAR (CLEAR); COLOR,BODY FLUID YELLOW (LT YELLOW); SPECIMENTYPE,BODY FLUID PLEURAL; TOTAL VOLUME,BODY FLUID 11 mL
[2022-03-08 15:16] LABS: GLUCOSE,BODY FLUID 111 mg/dL
--- NOTE | 2022-03-08 17:30 | NUR ---
PT CLEAN AND REPOSITIONED, SMEAR BM NOTICED. PT TOLERATED WELL. VSS. WILL CONTINUE TO CLOSE MONITOR.
[2022-03-08 18:15] LABS: POLYNUCLEAR, BODY FLUID 0 %; RBC, BODY FLUID 30000 /cu. mm.; WBC, BODY FLUID 0 /cu. mm.
--- NOTE | 2022-03-08 18:30 | NUR ---
tube feeding started at 10 ml/hr. will continue to closely monitor.
--- NOTE | 2022-03-08 19:11 | NUR ---
endorsed bedside report to Natasha lopez RN for continuity of care. all questions are answered.
--- NOTE | 2022-03-08 19:30 | NUR ---
ASSUMED CARE OF PT.INITIAL ASSESSMENT COMPLETED.PT SEDATED.SR NOTED ON MONITOR.ORALLY INTUBATED AC PRVC MODE.FIO2 100% TV500 RATE20 PEEP 5' W/HD ACCESS TO RT CHEST W/DRY AND INTACT DRESSING.W/PERIPHERAL IV TO RT F/A G20 INTACT(UPPER) INFUSING NS AT 5ML/HR, LOWER RT F/A G20 INFUSING PROPOFOL DRIP AT 30MCG/KG/MIN W/DRY WT AT 63.04 KG.W/OGT INTACT, 40ML RESIDUAL, ON OGT FEEDING NEPRO AT 10ML/HR AND WATER FLUSH ORDERED.WILL INCREASE LATER.PT OLIGURIC.W/BILATERAL SOFT WRIST RESTRAINTS,NO S/SX OF INJURIES NOTED.W/ PRESSURE ULCER NOTED TO RT HEEL, CLEANSE WITH SALINE AND NON ADHERENT DRESSING AND ABD PAD APPLIED.SACRAL AREA WITH OLD SCAR NOTED, FOAM IN PLACE. PT ON SPECIAL MATTRESS.FALL PRECAUTION IN PLACE.CALL LIGHT WITHIN REACH.WILL CONTINUE TO CLOSELY MONITOR PT. Addendum: 03/08/22 at 2206 by Venessa Lim RN W/CHEST TUBE TO LT LATERAL CHEST.SMALLL AMT OF YELLOWISH/PINKISH OUTPUT NOTED
--- NOTE | 2022-03-08 20:15 | NUR ---
ORAL CARE USING VAP KIT RENDERED.PT ON HEPARIN FOR DVT PROPHYLAXIS AND PROTONIX FOR GI PROPHYLAXIS,REPOSITIONED FOR COMFORT
--- NOTE | 2022-03-08 20:43 | NUR ---
1929 CPT DONE ON RIGHT SIDE OF LUNG DUE TO CHEST TUBE ON LEFT SIDE
--- NOTE | 2022-03-08 20:45 | NUR ---
DR BENTON, JOY OPERATOR IN THE UNIT.UPDATED ON PTS WOUND CONDITION.PHYSICIAN WAS ASKING RE; ELZBIETA THAT HE ORDERED WHEN PT WAS IN TELE, INFORMED MD THAT WE WILL F/U IN AM, DR BENTON SAID TO CALL HIM ONCE MEDICATION IS AVAILABLE.
[2022-03-08] MEDS: MEROPENEM 500 MG in NACL 0.9% 50 ML IV SCH (21:00)
--- NOTE | 2022-03-08 21:00 | NUR ---
REPORT GIVEN TO JOEL FOR CONTINUITY OF CARE
--- NOTE | 2022-03-08 21:05 | NUR ---
ASSUMED CARE OF PATIENT CURRENTLY INTUBATED AND SEDATED PATIENT IS ON PROPOFOL DRIP RUNNING AT 30MCG/KG/MIN HAS TUBE FEEDING RUNNING AT 10ML/HR WITH GOAL OF 40M L/HR WITH Q4 HR H20 FLUSH OF 200ML. CURRENT VENT SETTINGS: MODE = AC/PRVC RATE = 20 TIDAL VOLUME = 500 FIO2 = 28 PEEP = 5 PATIENT HAS CHEST TUBE (LEFT) PATIENT IS ON RESTRAINTS RIGHT IJ RIGHT WRIST PERIPHERAL, 20 G
--- NOTE | 2022-03-08 21:45 | NUR ---
PHONE CALL RECEIVED FROM PATIENT'S DTRGLENN. PROVIDED UPDATE AND CURRENT STATUS ON PATIENT ALL QUESTIONS ANSWERED.
[2022-03-09] VITALS (30 sets, daily range): BP systolic 131–169; BP diastolic 54–80
--- NOTE | 2022-03-09 00:05 | NUR ---
TUBE FEEDING RESIDUAL CHECKED; PATIENT HAS A RESIDUAL OF 60ML. OKAY TO INCREASE TUBE FEEDING TO 20ML/HR PER MD ORDERS.
--- NOTE | 2022-03-09 04:26 | NUR ---
TUBE FEEDING RESIDUAL CHECKED; PATIENT HAS A RESIDUAL OF 10ML. OKAY TO INCREASE TUBE FEEDING TO 30ML/HR PER MD ORDERS. *PATIENT HAS GOAL RATE OF 40ML/HR
[2022-03-09 05:29] LABS: ANION GAP 13.3 (8-16); CARBON DIOXIDE 26.5 mmol/L (21-32); CREATININE 2.9 mg/dL (0.6-1.3); POTASSIUM 3.8 mmol/L (3.5-5.1)
[2022-03-09 05:30] LABS: HEMOGLOBIN 9.2 g/dL (12.0-18.0); MEAN CORPUSCULAR HEMOGLOBIN 30 pg (27-31); MEAN CORPUSCULAR HGB CONC 33 g/dL (33-37); MEAN CORPUSCULAR VOLUME 90.6 fL (80-94); PLATELET COUNT (AUTO) 334 K/uL (140-450); RED BLOOD CELL COUNT(AUTO) 3.09 MIL/uL (4.20-6.10); RED CELL DISTRIBUTION WIDTH 17.8 % (11.6-13.7); WHITE BLOOD COUNT (AUTO) 23.2 K/uL (4.8-10.8)
[2022-03-09 06:15] LABS: EOSINOPHILS % (MANUAL) 1 % (0-4); LYMPHOCYTES % (MANUAL) 5 % (20-46); MONOCYTES % (MANUAL) 5 % (5-12)
[2022-03-09] MEDS: BLOOD GLUCOSE MONITORING 1 DEV DEV FS SCH ×3 (06:34→18:50)
[2022-03-09] MEDS: PROPOFOL 1000 MG/100 ML PREMIX 100 ML IV PRN ×3 (06:49→23:09)
--- NOTE | 2022-03-09 07:15 | NUR ---
RECEIVED BEDSIDE REPORT FROM NATHALY KIM RN FOR CONTINUITY OF CARE. PT SEDATED RASS -3, SUPINE IN THE BED. ETT TO VENT ACPRVC FIO2 28% VT 500 R 20 PEEP 5. COARSE CRACKLES LUNG SOUNDS. SR ON BEDSIDE MONITOR. RFA 20G IV PATENT. INFUSING PROPOFOL AT 30MCG/KG/MIN. OGT INPLACED, PATENT, INFUSING NEPRO 40ML/HR. FREE WASH WATER 200CC Q4HR. CHEST TUBE DRAINAGE 20CC COLLECTED OVER THE NIGHT. [facility] MONY CATH IN PLACE, CLEAN DRY INTACT. AUSCULTATED S 1 AND 2. BOWEL SOUNDS ACTIVE, LAST BM 03/07. PT ANURIC. W GENERALIZED WEAKNESS TO BUE BLE. SKIN NOT INTACT, SEE WOUND ASSESSMENT. ON STANDARD ISOLATION. SAFETY PRECAUTIONS MET. CALL LIGHT WITHIN REACH. INITIAL ASSESSMENT COMPLETE, WILL CONTINUE TO CLOSELY MONITOR.
[2022-03-09] MEDS: ALBUTEROL SULFATE/IPRATROPIU 3 ML SOL IH SCH ×3 (07:21→19:00)
[2022-03-09] MEDS: hydrALAZINE 20 MG/ML VIAL IVP PRN (08:02)
[2022-03-09] MEDS: VIT-B COMP/VIT-C/FOLIC ACID 1 TAB PO SCH (08:28)
[2022-03-09] MEDS: hydrALAZINE 25 MG TAB PO SCH ×4 (08:29→21:25)
[2022-03-09] MEDS: lisinopriL 20 MG TAB PO SCH (08:29)
[2022-03-09] MEDS: amLODIPine 5 MG TAB PO SCH (08:30)
[2022-03-09] MEDS: MEROPENEM 500 MG in NACL 0.9% 50 ML IV SCH ×2 (08:33→21:24)
[2022-03-09] MEDS: PANTOPRAZOLE 40 MG INJ VIAL IVP SCH (08:35)
[2022-03-09] MEDS ORDERED: VANCOMYCIN 1,000 MG in DEXTROSE 5% 250 ML IV SCH (10:00)
--- NOTE | 2022-03-09 10:25 | NUR ---
JAMISON AT BEDSIDE, ALL QUESTIONS ARE ANSWERED.
--- NOTE | 2022-03-09 10:40 | NUR ---
DR ROBERTSON ROUNDING AT BEDSIDE, CHANGE FREE WASH WATER FROM 200CC/Q4HR TO 100CC/Q4HR.
--- NOTE | 2022-03-09 11:05 | NUR ---
RUBEN ELIZABETH AT BEDSIDE. ALL QUESTIONS ARE ANSWERED.
--- NOTE | 2022-03-09 11:40 | NUR ---
SPOKE Juarez HARPER FROM PHARMACY ABOUT DR BENTON ORDER FOR SANTYL OINTMENT FOR PT L FOOT. HE SAID HE WILL ORDER, BUT UNSURE IF IT WILL BE IN STOCK, SOONEST WE WILL HAVE IT OR KNOW IS MONDAY 03/12
[2022-03-09] MEDS: INSULIN LISPRO SLIDING SCALE 100 UNITS/ML VIAL SUBQ PRN ×2 (11:59→17:01)
--- NOTE | 2022-03-09 12:15 | NUR ---
DR CAMPA ROUNDING AT BEDSIDE. PT INFORMATION UNDATED. NO NEW ORDER.
[2022-03-09] MEDS: THERAHONEY WOUND DRESSING TP SCH (13:07)
[2022-03-09] MEDS: GAUZE TP SCH (13:14)
--- NOTE | 2022-03-09 13:20 | NUR ---
DR CARROLL ROUNDING AT BEDSIDE. PT INFORMATION UPDATED. DR CARROLL ORDERED 2 CHEST X-RAY, 1 STAT, 1 FOR 03/10 MORNING TO SEE HOW PT PROGRESSED FROM CHEST TUBE DRAINAGE REMOVAL. THEN WILL TRY CPAP. KEEP PROPOFOL.
[2022-03-09] MEDS: ACETAMINOPHEN 325 MG TAB PO PRN (16:25)
--- NOTE | 2022-03-09 17:30 | NUR ---
PT CLEAN AND REPOSITIONED, AURIC, NO BM NOTICED. PT TOLERATED WELL. VSS. WILL CONTINUE TO CLOSE MONITOR.
--- NOTE | 2022-03-09 19:10 | NUR ---
ENDORSED TO Minerva KIM RN FOR CONTINUITY OF CARE. ALL QUESTION ARE ANSWERED.VSS
--- NOTE | 2022-03-09 19:15 | NUR ---
RECEIVED REPORT FROM DAY SHIFT NEVIN ESTRADA. PT. NOT ALERT AND ORIENTED. CONT. ON ETT A/C PRVC RATE 20, FIO2 28%, TV 500, PEEP 5. SINUS RHYTHM ON MONITOR. IV TO RIGHT LOWER FOREARM 20G AND RIGHT PERIPHERAL MIDLINE 20G, SITE NO S/S OF INFILTRATION, INFUSING PROPOFOL DRIP 30 MCG/KG/MIN AND NS TKO. HAD HEMODIALYSIS YESTERDAY TO RIGHT SUBCLAVIAN MONY CATHETER WITH 2.8L OUTPUT. SCHEDULE FOR CPAP TOMORROW PER MD ORDERED. FEEDING NEPRO 40 ML/HR VIA OGT TOLERATING WELL. LEFT CHEST TUBE IN PLACE, DRY AND INTACT. PT. ANURIC. WITH WOUND TO LEFT HEEL AND DR. BENTON AWARE, NEW ORDER FOR MEDICATION AND PHARMACY AWARE. REPOSITIONED, CONT. ON BILATERAL SOFT WRIST RESTRAINT, NO S/S OF POOR CIRCULATION, NO S/S OF INJURY. PT. NO S/S OF PAIN. PROVIDED SAFE AND QUIET ENVIRONMENT. BED LOCK AND PLACED BED IN THE LOWEST HEIGHT. WILL CONT. TO MONITOR.
--- NOTE | 2022-03-09 21:00 | NUR ---
MEDICATIONS VIA OGT GIVEN. CHECKED ORAL GASTRIC RESIDUAL AND IT'S 50 ML CREAMY THICK RESIDUAL. WILL CONT. WITH FEEDING NEPRO AT 40 ML/HR.
[2022-03-10] VITALS (32 sets, daily range): BP systolic 120–160; BP diastolic 61–76
[2022-03-10] MEDS: INSULIN LISPRO SLIDING SCALE 100 UNITS/ML VIAL SUBQ PRN ×4 (00:23→17:26)
[2022-03-10] MEDS: BLOOD GLUCOSE MONITORING 1 DEV DEV FS SCH ×4 (00:24→17:26)
--- NOTE | 2022-03-10 04:00 | NUR ---
PT. GASTRIC RESIDUAL AT 0000, 40 ML CREAMY THICK FLUID AND 50 ML CREAMY THICK LIQUID AT THIS TIME. FEEDING NEPRO 40 ML INFUSING AND WILL CONT. TO MONITOR.
--- NOTE | 2022-03-10 04:30 | NUR ---
LABS CAME IN DRAWN BLOOD FOR CBC, BMP.
[2022-03-10] MEDS: hydrALAZINE 25 MG TAB PO SCH ×3 (04:47→20:09)
[2022-03-10 04:57] LABS: BASOPHILS # (AUTO) 0.2 K/uL (0.00-0.22); BASOPHILS % (AUTO) 1.2 % (0.0-2.0); EOSINOPHILS # (AUTO) 0.6 K/uL (0-0.4); EOSINOPHILS % (AUTO) 3.1 % (0.0-4.0); HEMATOCRIT 28.9 % (36-52); HEMOGLOBIN 9.7 g/dL (12.0-18.0); LYMPHOCYTES # (AUTO) 1.1 K/uL (2.0-11.5); LYMPHOCYTES % (AUTO) 5.5 % (20.5-51.1); MEAN CORPUSCULAR HEMOGLOBIN 30 pg (27-31); MEAN CORPUSCULAR HGB CONC 34 g/dL (33-37); MEAN CORPUSCULAR VOLUME 89.9 fL (80-94); MONOCYTES # (AUTO) 1.5 K/uL (0.8-1.0); MONOCYTES % (AUTO) 7.7 % (1.7-9.3); NEUTROPHILS # (AUTO) 15.8 K/uL (1.8-7.7); NEUTROPHILS % (AUTO) 82.5 % (42.2-75.2); PLATELET COUNT (AUTO) 339 K/uL (140-450); RED BLOOD CELL COUNT(AUTO) 3.21 MIL/uL (4.20-6.10); RED CELL DISTRIBUTION WIDTH 18.4 % (11.6-13.7); WHITE BLOOD COUNT (AUTO) 19.1 K/uL (4.8-10.8)
[2022-03-10 05:00] LABS: ANION GAP 15.7 (8-16); CREATININE 3.8 mg/dL (0.6-1.3); POTASSIUM 3.7 mmol/L (3.5-5.1)
--- NOTE | 2022-03-10 06:27 | NUR ---
PT. CXR TAKEN AT THIS TIME
--- NOTE | 2022-03-10 07:15 | NUR ---
RECEIVED BEDSIDE REPORT FROM LEONARDO KIM RN FOR CONTINUITY OF CARE. PT SEDATED RASS -3, SUPINE IN THE BED. ETT TO VENT ACPRVC FIO2 28% VT 500 R 20 PEEP 5. COARSE CRACKLES LUNG SOUNDS. SR ON BEDSIDE MONITOR. RFA 20G IV PATENT. INFUSING PROPOFOL AT 30MCG/KG/MIN. OGT INPLACED, PATENT, INFUSING NEPRO 40ML/HR. FREE WASH WATER 100CC Q4HR. CHEST TUBE DRAINAGE 30CC COLLECTED OVER THE NIGHT. [facility] MONY CATH IN PLACE, CLEAN DRY INTACT. AUSCULTATED S 1 AND 2. BOWEL SOUNDS ACTIVE, LAST BM 03/07. PT ANURIC. W GENERALIZED WEAKNESS TO BUE BLE. SKIN NOT INTACT, SEE WOUND ASSESSMENT. ON STANDARD ISOLATION. SAFETY PRECAUTIONS MET. CALL LIGHT WITHIN REACH. INITIAL ASSESSMENT COMPLETE, WILL CONTINUE TO CLOSELY MONITOR.
--- NOTE | 2022-03-10 07:15 | NUR ---
ENDORSED PT. TO DAY SHIFT NEVIN HOUSTON FOR CONTINUITY OF CARE. ALL QUESTIONS ANSWERED.
[2022-03-10] MEDS: ALBUTEROL SULFATE/IPRATROPIU 3 ML SOL IH SCH ×3 (07:19→19:50)
[2022-03-10] MEDS: MEROPENEM 500 MG in NACL 0.9% 50 ML IV SCH ×2 (09:18→20:11)
[2022-03-10] MEDS: PANTOPRAZOLE 40 MG INJ VIAL IVP SCH (09:19)
[2022-03-10] MEDS: VIT-B COMP/VIT-C/FOLIC ACID 1 TAB PO SCH (09:21)
[2022-03-10] MEDS: amLODIPine 5 MG TAB PO SCH (09:22)
[2022-03-10] MEDS: lisinopriL 20 MG TAB PO SCH (09:23)
--- NOTE | 2022-03-10 09:30 | NUR ---
WEANING PROPOFOL. PT WAKES UP, CAN FOLLOW COMMANDS. NODS HEAD FOR UNDERSTANDING. READY FOR CPAP TRIAL. CALL TO RT DORINA.
--- NOTE | 2022-03-10 10:11 | NUR ---
PT PLACED ON SBT CPAP 5 PS 10 AND FIO2 28%. NURSE BEDSIDE AND AWARE. ALARMS SET APPROPRIATELY AND FUNCTIONING. WILL CONTINUE TO MONITOR.
--- NOTE | 2022-03-10 10:13 | NUR ---
PT PLACED ON SBT MODE Juarez CAM AT BEDSIDE. PROPOFOL OFF. FOLLOWING COMMANDS, VERBALIZE UNDERSTANDING. WILL CONTINUE TO CLOSELY MONITOR. Addendum: 03/10/22 at 1020 by Rhoda Ortez RN PT DOES NOT VERBALIZE UNDERSTANDING, VENTILATED. PT NODS HEAD AND SQUEEZES HAND TO COMMUNICATE UNDERSTANDING.
[2022-03-10] MEDS ORDERED: DOCUSATE 100 MG/10 ML UDC GT PRN (10:15)
--- NOTE | 2022-03-10 11:10 | NUR ---
PT. GASTRIC RESIDUAL 15 ML CREAMY THICK FLUID. FEEDING NEPRO 40 ML INFUSING AND WILL CONT. TO MONITOR. LIQUID COLACE GIVEN.
[2022-03-10] MEDS: GAUZE TP SCH (13:06)
[2022-03-10] MEDS: THERAHONEY WOUND DRESSING TP SCH (13:06)
--- NOTE | 2022-03-10 13:25 | NUR ---
DAUGHTER GLENN AT BEDSIDE. UPDATE PT INFORMATION. ALL QUESTIONS ANSWERED.
--- NOTE | 2022-03-10 13:40 | NUR ---
DR CARROLL ROUNDING AT BEDSIDE. PT INFORMATION UPDATED. DR CARROLL WANT TO BE NOTIFIED AFTER TOMORROW CPAP(03/11/22)TRAIL W/ UPDATED INFORMATION.
--- NOTE | 2022-03-10 14:10 | NUR ---
DR HAIRSTON ROUNDING AT BEDSIDE. UPDATE PT INFORMATION. NO NEW ORDER
--- NOTE | 2022-03-10 19:18 | NUR ---
ENDORSED TO EKATERINA KIM RN FOR CONTINUITY OF CARE. ALL QUESTION ARE ANSWERED.VSS
--- NOTE | 2022-03-10 21:05 | NUR ---
PATIENT IS SEDATED A&O X0. VENT SETTINGS AC PVRC FI02 28 VT 500 RATE 20 PEEP 5 PEAK 22 PEEPE 5. CHEST TUBE TO LEFT LATERAL SIDE IS INTACT AND DRAINING WELL. OGT TUBE FEEDING NEPRO AT 40ML/HR AND 100ML FLUSH Q4H. SR ON BEDSIDE MONITOR. 20 GAUGE IV SITE TO RIGHT FOREARM X2. PROPOFOL RUNNING AT 15MCG/KG/MIN. RIGHT IIJ CENTRAL FOR DIALYSIS. RESTRAINTS IN PLACE AND NO NEW INJURIES NOTED. NO S/SX OF PAIN AT THIS TIME.
--- NOTE | 2022-03-10 23:35 | NUR ---
ALL PM MEDS GIVEN ORDERED. RESIDUAL 30CC.
[2022-03-11] VITALS (31 sets, daily range): BP systolic 134–181; BP diastolic 54–84
--- NOTE | 2022-03-11 03:02 | NUR ---
PT REPOSITIONED. NO S/SX OF DISTRESS NOTED.
[2022-03-11] MEDS: hydrALAZINE 25 MG TAB PO SCH ×3 (04:34→20:14)
[2022-03-11] MEDS: BLOOD GLUCOSE MONITORING 1 DEV DEV FS SCH ×4 (06:17→18:18)
[2022-03-11 06:26] LABS: BASOPHILS # (AUTO) 0.1 K/uL (0.00-0.22); BASOPHILS % (AUTO) 0.9 % (0.0-2.0); EOSINOPHILS # (AUTO) 1.2 K/uL (0-0.4); EOSINOPHILS % (AUTO) 8.1 % (0.0-4.0); HEMATOCRIT 28.1 % (36-52); HEMOGLOBIN 9.4 g/dL (12.0-18.0); LYMPHOCYTES # (AUTO) 0.9 K/uL (2.0-11.5); LYMPHOCYTES % (AUTO) 5.8 % (20.5-51.1); MEAN CORPUSCULAR HEMOGLOBIN 30 pg (27-31); MEAN CORPUSCULAR HGB CONC 33 g/dL (33-37); MEAN CORPUSCULAR VOLUME 89.7 fL (80-94); MONOCYTES # (AUTO) 1.1 K/uL (0.8-1.0); MONOCYTES % (AUTO) 7.3 % (1.7-9.3); NEUTROPHILS # (AUTO) 11.6 K/uL (1.8-7.7); NEUTROPHILS % (AUTO) 77.9 % (42.2-75.2); PLATELET COUNT (AUTO) 364 K/uL (140-450); RED BLOOD CELL COUNT(AUTO) 3.14 MIL/uL (4.20-6.10); RED CELL DISTRIBUTION WIDTH 18.2 % (11.6-13.7); WHITE BLOOD COUNT (AUTO) 14.9 K/uL (4.8-10.8)
[2022-03-11 06:37] LABS: ANION GAP 16.8 (8-16); CARBON DIOXIDE 23.4 mmol/L (21-32); POTASSIUM 4.2 mmol/L (3.5-5.1)
[2022-03-11 06:44] LABS: CREATININE 4.5 mg/dL (0.6-1.3)
--- NOTE | 2022-03-11 07:30 | NUR ---
RECEIVED BEDSIDE REPORT FROM NIGHT RN FOR CONTINUITY OF CARE. PT IN BED WITH HOB ELEVATED. PT SEDATED RASS -3. ETT TO VENT ACPRVC FIO2 28% VT 500 R 20 PEEP 5. COARSE CRACKLES LUNG SOUNDS. SR ON BEDSIDE MONITOR. RFA 20G IV PATENT. INFUSING PROPOFOL AT 15 MCG/KG/MIN. RIJ TUNNEL CATH IN PLACE, CLEAN DRY INTACT. AUSCULTATED S 1 AND 2. BOWEL SOUNDS ACTIVE. PT ANURIC. W GENERALIZED WEAKNESS TO BUE BLE. SKIN NOT INTACT, SEE WOUND ASSESSMENT. ON STANDARD ISOLATION. SAFETY PRECAUTIONS MET. CALL LIGHT WITHIN REACH. INITIAL ASSESSMENT COMPLETE, WILL CONTINUE TO CLOSELY MONITOR.
[2022-03-11] MEDS: ALBUTEROL SULFATE/IPRATROPIU 3 ML SOL IH SCH ×3 (07:45→19:00)
--- NOTE | 2022-03-11 08:30 | NUR ---
due meds given. oral care done. turned and repositione
[2022-03-11] MEDS: MEROPENEM 500 MG in NACL 0.9% 50 ML IV SCH ×2 (08:40→20:13)
[2022-03-11] MEDS: VIT-B COMP/VIT-C/FOLIC ACID 1 TAB PO SCH (08:41)
[2022-03-11] MEDS: lisinopriL 20 MG TAB PO SCH (08:41)
[2022-03-11] MEDS: PANTOPRAZOLE 40 MG INJ VIAL IVP SCH (08:41)
[2022-03-11] MEDS: EPOETIN ALFA-EPBX 10,000 UNITS/ML VIAL SUBQ SCH (08:41)
[2022-03-11] MEDS: amLODIPine 5 MG TAB PO SCH (08:41)
--- NOTE | 2022-03-11 12:00 | NUR ---
hemodialysis done with 2.8L out. VS WNL
--- NOTE | 2022-03-11 12:49 | NUR ---
ATTEMPTED TO SEE PATIENT FOR PHYSICAL THERAPY BUT WAS DEEMED NOT APPROPRIATE D/T CHANGE IN CONDITION. PATIENT IS NOW SEDATED AND INTUBATED. NURSING MADE AWARE AND WILL WRITE NEW ORDER FOR PHYSICAL THERAPY WHEN PATIENT IS APPROPRIATE.
[2022-03-11] MEDS: PROPOFOL 1000 MG/100 ML PREMIX 100 ML IV PRN (13:00)
[2022-03-11] MEDS: THERAHONEY WOUND DRESSING TP SCH (13:10)
[2022-03-11] MEDS: GAUZE TP SCH (13:10)
--- NOTE | 2022-03-11 13:15 | NUR ---
CPAP TRIAL, SEDATION VACATION STARTED
--- NOTE | 2022-03-11 13:16 | NUR ---
PT PLACED ON SBT CPAP 5 PS 10 AND FIO2 28%, NURSE AWARE, ALARMS SET APPROPRIATELY, ON AND FUNCTIONING. WILL CONTINUE TO MONITOR.
[2022-03-11] MEDS: ONDANSETRON 4 MG/2 ML VIAL IM/IVP PRN (13:52)
--- NOTE | 2022-03-11 15:00 | NUR ---
DAUGHTER AT BEDSIDE, UPDATE GIVEN
--- NOTE | 2022-03-11 18:40 | NUR ---
NO APPARENT DISTRESS N OTED, NO S/S OF PAIN
--- NOTE | 2022-03-11 19:39 | NUR ---
RECEIVED REPORT FROM AM SHIFT NEVIN ARTHUR. PT SEDATED AND HAS ETT TO VENT. VENT SETTINGS FI02 28 VT 500 RATE 20 PEEP 5 PPEAK 23 PEEPE 4. CHEST TUBE INTACT AND DRAINING WELL. OGT TUBE FEEDING NEPRO AT 40ML/HR 100ML FLUSH Q4H. INCONTINENT TO BOWEL MOVEMENTS AND IS ANURIC. NORMAL SINUS RHYTHM TO BEDSIDE MONITOR. RIGHT IJ MONY CATHETER FOR HD. HD DONE IN AM SHIFT 2.8L OUT PER AM NURSE. WOUND TO SACRAL AND LEFT HEEL. RESTRAINTS IN PLACE. NO SIGNS OF INJURIES.
[2022-03-12] VITALS (31 sets, daily range): BP systolic 122–166; BP diastolic 66–95
--- NOTE | 2022-03-12 | NUR ---
PT TEMP 100.2. ICE PACKS APPLIED. WILL FOLLOW UP WITH NEXT TEMP.
[2022-03-12] MEDS: INSULIN LISPRO SLIDING SCALE 100 UNITS/ML VIAL SUBQ PRN ×2 (01:52→23:51)
[2022-03-12] MEDS: hydrALAZINE 20 MG/ML VIAL IVP PRN ×2 (02:42→03:57)
--- NOTE | 2022-03-12 02:53 | NUR ---
BP 165/75. PRN HYDRALAZINE 10GM IVP GIVEN. WILL FOLLOW UP EFFECTIVENESS.
[2022-03-12] MEDS: PROPOFOL 1000 MG/100 ML PREMIX 100 ML IV PRN ×2 (04:00→18:59)
--- NOTE | 2022-03-12 05:00 | NUR ---
PT TEMP 98.2
[2022-03-12 05:44] LABS: ANION GAP 15.8 (8-16); CARBON DIOXIDE 24.2 mmol/L (21-32); CREATININE 3.4 mg/dL (0.6-1.3)
[2022-03-12] MEDS: hydrALAZINE 25 MG TAB PO SCH ×3 (06:17→21:09)
--- NOTE | 2022-03-12 06:20 | NUR ---
PT TEMP IS 98.5.
[2022-03-12] MEDS: BLOOD GLUCOSE MONITORING 1 DEV DEV FS SCH ×5 (06:30→23:52)
[2022-03-12 06:39] LABS: BASOPHILS # (AUTO) 0.2 K/uL (0.00-0.22); BASOPHILS % (AUTO) 0.9 % (0.0-2.0); EOSINOPHILS # (AUTO) 1.3 K/uL (0-0.4); EOSINOPHILS % (AUTO) 7.5 % (0.0-4.0); HEMATOCRIT 28.1 % (36-52); HEMOGLOBIN 9.4 g/dL (12.0-18.0); LYMPHOCYTES # (AUTO) 1.1 K/uL (2.0-11.5); LYMPHOCYTES % (AUTO) 5.9 % (20.5-51.1); MEAN CORPUSCULAR HEMOGLOBIN 30 pg (27-31); MEAN CORPUSCULAR HGB CONC 34 g/dL (33-37); MEAN CORPUSCULAR VOLUME 90.8 fL (80-94); MONOCYTES # (AUTO) 1.6 K/uL (0.8-1.0); NEUTROPHILS # (AUTO) 13.7 K/uL (1.8-7.7); NEUTROPHILS % (AUTO) 76.7 % (42.2-75.2); PLATELET COUNT (AUTO) 324 K/uL (140-450); RED BLOOD CELL COUNT(AUTO) 3.09 MIL/uL (4.20-6.10); RED CELL DISTRIBUTION WIDTH 18.2 % (11.6-13.7); WHITE BLOOD COUNT (AUTO) 17.9 K/uL (4.8-10.8)
--- NOTE | 2022-03-12 07:20 | NUR ---
REPORT GIVEN TO AM SHIFT NURSE KATHI.
--- NOTE | 2022-03-12 07:35 | NUR ---
Received pt sedated, RASS-3. ETT to vent settings AC PRVC TV 500 RATE 20 PEEP 5 FiO2@28%. Sinus rhythm on monitor. OG-tube intact and patent infusing Nepro @40ml/hr with free water flush 100 Q4H. Peripheral IV on right forearm 20 gauge intact and patent infusing Propofol @15mcg/kg/min. Peripheral IV on right forearm 20 gauge intact and patent infusing NS @TKO. Hemodialysis catheter on right IJ intact. Chest tube on left side draining to gravity. Safety precautions in place. Addendum: 03/12/22 at 0957 by Sarah Manriquez RN Hemodialysis catheter on right upper chest intact.
--- NOTE | 2022-03-12 07:44 | NUR ---
Seen and examined by Dr. Bernabe. New order received. RT at bedside.
--- NOTE | 2022-03-12 07:51 | NUR ---
BEDSIDE WILL CONTINUE SBT , PT NOT READY FOR EXTUBATION DUE TO TRENDING WBC, WILL MONITOR.
[2022-03-12] MEDS: ALBUTEROL SULFATE/IPRATROPIU 3 ML SOL IH SCH ×3 (07:56→18:13)
--- NOTE | 2022-03-12 08:10 | NUR ---
Seen and examined by Dr. West.
[2022-03-12] MEDS: amLODIPine 5 MG TAB PO SCH (08:24)
[2022-03-12] MEDS: lisinopriL 20 MG TAB PO SCH (08:24)
[2022-03-12] MEDS: VIT-B COMP/VIT-C/FOLIC ACID 1 TAB PO SCH (08:24)
[2022-03-12] MEDS: MEROPENEM 500 MG in NACL 0.9% 50 ML IV SCH ×2 (08:25→21:08)
[2022-03-12] MEDS: PANTOPRAZOLE 40 MG INJ VIAL IVP SCH (08:25)
[2022-03-12] MEDS ORDERED: LACTULOSE 20 GM/30 ML UDC GT SCH (09:00)
--- NOTE | 2022-03-12 09:24 | NUR ---
Called Dr. Montes office, but Dr. Montes in [place] today. Left message with Chelly regarding available santyl, but no current order and left call back number.
[2022-03-12] MEDS: GAUZE TP SCH (13:00)
[2022-03-12] MEDS: THERAHONEY WOUND DRESSING TP SCH (13:00)
--- NOTE | 2022-03-12 13:04 | NUR ---
Hemodialysis done at bedside.
[2022-03-12] MEDS: ONDANSETRON 4 MG/2 ML VIAL IM/IVP PRN ×2 (14:35→19:01)
--- NOTE | 2022-03-12 14:39 | NUR ---
03/12/22 RD FOLLOW UP COMPLETED. PLEASE REFER TO NUTRITION ASSESSMENT UNDER CARE ACTIVITY FOR ESTIMATED NUTRITIONAL NEEDS. 1. CONTINUE NEPRO @ 40 ML/HR WITH FWF 100ML Q4H - PROSOURCE (120 KCAL, 30 GRAMS PROTEIN) BID FOR NUTRITION THERAPY/WOUND HEALING/MALNUTRITION. NEPRO WILL PROVIDE 1728 KCAL AND 78 GRAMS OF PROTEIN. WITH PROPOFOL AND PROSOURCE, THIS WILL MEET 100% OF ESTIMATED ENERGY NEEDS; ADEQUATE 2. MONITOR GASTRIC RESIDUAL 3. RD TO FOLLOW-UP IN 2-3 DAYS PATIENT IS HIGH RISK. MARANDA SNOWDEN RD
--- NOTE | 2022-03-12 14:45 | NUR ---
New order received from Dr. Montes for wound treatment.
--- NOTE | 2022-03-12 15:45 | NUR ---
Hemodialysis completed. 2.5 L removed per dialysis nurse.
--- NOTE | 2022-03-12 17:10 | NUR ---
Seen and examined by Dr. Cody.
--- NOTE | 2022-03-12 18:15 | NUR ---
Pt had medium loose brown bowel movement. Pericare rendered. Suctioned as needed. Turned and reposition. Safety precautions in place.
--- NOTE | 2022-03-12 19:20 | NUR ---
Endorsed to machine wedger nurse for continuity of care.
--- NOTE | 2022-03-12 20:30 | NUR ---
PT. CARE ENDORSED TO ME BY NEVIN AMATO. PT. ON ETT A/C PRVC RATE 20, TV 500 FIO2 28%, PEEP 5. SINUS RHYTHM ON THE MONITOR. IV TO RIGHT LOWER FOREARM 20G, INFUSING PROPOFOL DRIP AT 25 MCG/KG/MIN AND MID LOWER FOREARM 20G CAPPED AND FLUSHED. PT. HAD HEMODIALYSIS TODAY WITH 3.5L OUTPUT, ACCESS TO RIGHT SUBCLAVIAN MONY CATHETER. PT. IS ANURIC. SKIN NOT INTACT, PLS. SEE WOUND CHART. LEFT CHEST TUBE WORKING WELL, DRESSING DRY AND NO S/S OF INFECTION. CONT. ON BILATERAL SOFT WRIST RESTRAINT WITH NO S/S OF POOR CIRCULATION OR INJURY. PLACED PT. IN COMFORTABLE POSITION AND PROVIDED SAFE AND QUIET ENVIRONMENT. NO /S S OF PAIN AND WILL CONT. TO MONITOR.
[2022-03-13] VITALS (26 sets, daily range): BP systolic 136–168; BP diastolic 63–83
--- NOTE | 2022-03-13 00:53 | NUR ---
PT. DAUGHTER GLENN CALLED AND PROVIDED UPDATE. SHE STATED SHE WILL COME OMAR. TO VISIT. WILL ENDORSE TO THE NEXT SHIFT.
[2022-03-13] MEDS: PROPOFOL 1000 MG/100 ML PREMIX 100 ML IV PRN ×2 (04:03→08:42)
[2022-03-13] MEDS: hydrALAZINE 25 MG TAB PO SCH ×3 (04:40→20:56)
[2022-03-13 05:34] LABS: BASOPHILS # (AUTO) 0.2 K/uL (0.00-0.22); BASOPHILS % (AUTO) 1.1 % (0.0-2.0); EOSINOPHILS # (AUTO) 1.1 K/uL (0-0.4); EOSINOPHILS % (AUTO) 7.6 % (0.0-4.0); HEMOGLOBIN 9.3 g/dL (12.0-18.0); LYMPHOCYTES # (AUTO) 1.1 K/uL (2.0-11.5); LYMPHOCYTES % (AUTO) 7.6 % (20.5-51.1); MEAN CORPUSCULAR HEMOGLOBIN 30 pg (27-31); MEAN CORPUSCULAR HGB CONC 33 g/dL (33-37); MEAN CORPUSCULAR VOLUME 91.2 fL (80-94); MONOCYTES # (AUTO) 1.5 K/uL (0.8-1.0); MONOCYTES % (AUTO) 10.1 % (1.7-9.3); NEUTROPHILS # (AUTO) 10.6 K/uL (1.8-7.7); NEUTROPHILS % (AUTO) 73.6 % (42.2-75.2); PLATELET COUNT (AUTO) 277 K/uL (140-450); RED BLOOD CELL COUNT(AUTO) 3.08 MIL/uL (4.20-6.10); RED CELL DISTRIBUTION WIDTH 18.3 % (11.6-13.7); WHITE BLOOD COUNT (AUTO) 14.4 K/uL (4.8-10.8)
[2022-03-13] MEDS: BLOOD GLUCOSE MONITORING 1 DEV DEV FS SCH ×3 (05:36→17:30)
[2022-03-13] MEDS: INSULIN LISPRO SLIDING SCALE 100 UNITS/ML VIAL SUBQ PRN ×2 (05:36→11:26)
[2022-03-13 05:48] LABS: ANION GAP 15.5 (8-16); CARBON DIOXIDE 23.4 mmol/L (21-32); CREATININE 2.8 mg/dL (0.6-1.3); POTASSIUM 3.9 mmol/L (3.5-5.1)
[2022-03-13] MEDS: hydrALAZINE 20 MG/ML VIAL IVP PRN (06:34)
--- NOTE | 2022-03-13 07:15 | NUR ---
RECEIVED BEDSIDE REPORT FROM LEONARDO KIM RN FOR CONTINUITY OF CARE. PT SEDATED RASS -3, SUPINE IN THE BED. ETT TO VENT ACPRVC FIO2 28% VT 500 R 20 PEEP 5. COARSE CRACKLES LUNG SOUNDS. SR ON BEDSIDE MONITOR. RFA 20G IV PATENT. INFUSING PROPOFOL AT 25MCG/KG/MIN. OGT INPLACED, PATENT, INFUSING NEPRO 40ML/HR. FREE WASH WATER 100CC Q4HR. CHEST TUBE DRAINAGE 20CC COLLECTED OVER THE NIGHT. [facility] MONY CATH IN PLACE, CLEAN DRY INTACT. AUSCULTATED S 1 AND 2. BOWEL SOUNDS ACTIVE, LAST BM 03/12. PT ANURIC. W GENERALIZED WEAKNESS TO BUE BLE. SKIN NOT INTACT, SEE WOUND ASSESSMENT. ON STANDARD ISOLATION. SAFETY PRECAUTIONS MET. CALL LIGHT WITHIN REACH. INITIAL ASSESSMENT COMPLETE, WILL CONTINUE TO CLOSELY MONITOR.
--- NOTE | 2022-03-13 07:30 | NUR ---
DR COYLE ROUNDING AT BEDSIDE, UPDATED PT. INFORMATION, NO NEW ORDER.
[2022-03-13] MEDS: ALBUTEROL SULFATE/IPRATROPIU 3 ML SOL IH SCH ×3 (07:50→19:19)
--- NOTE | 2022-03-13 08:20 | NUR ---
DR CARROLL ROUNDING AT BEDSIDE. UPDATED PT. INFORMATION. DR CARROLL ORDER A GAS 30 MIN AFTER CPAP TRAIL.
[2022-03-13] MEDS: lisinopriL 20 MG TAB PO SCH (08:34)
[2022-03-13] MEDS: VIT-B COMP/VIT-C/FOLIC ACID 1 TAB PO SCH (08:34)
[2022-03-13] MEDS: amLODIPine 5 MG TAB PO SCH (08:36)
[2022-03-13] MEDS: EPOETIN ALFA-EPBX 10,000 UNITS/ML VIAL SUBQ SCH (08:36)
[2022-03-13] MEDS: PANTOPRAZOLE 40 MG INJ VIAL IVP SCH (08:37)
[2022-03-13] MEDS: MEROPENEM 500 MG in NACL 0.9% 50 ML IV SCH ×2 (08:38→20:56)
[2022-03-13] MEDS ORDERED: SANTYL OINTMENT TP SCH (09:00)
[2022-03-13] MEDS ORDERED: SANTYL OINTMENT TP PRN ×2 (11:40→11:43)
--- NOTE | 2022-03-13 11:44 | NUR ---
SPOKE WITH DR. JUDGE VIA PHONE REGARDING DIALYSIS SCHEDULE. DR JUDGE TOLD HD NURSE TO HOLD HD TODAY, AND RESUME HD ON TOMORROW.
[2022-03-13] MEDS ORDERED: VANCOMYCIN 500 MG in DEXTROSE 5% 100 ML IV SCH (12:00)
--- NOTE | 2022-03-13 12:10 | NUR ---
DAUGHTER GLENN AT BEDSIDE. UPDATED PT INFORMATION. ALL QUESTIONS ANSWERED.
--- NOTE | 2022-03-13 12:28 | NUR ---
FEEDING TUBE STOPPED DUE TO PREPARE FOR EXTUBATION.
--- NOTE | 2022-03-13 12:40 | NUR ---
PT EXTUBATED BY RT PER DR CARROLL ORDER. PT TOLERATE WELL. VSS. 2L NC
--- NOTE | 2022-03-13 12:50 | NUR ---
BILA SOFT WRIST RESTRAINTS REMOVED. PT. A/O x3, TO PLACE, NAME, EVENT.
[2022-03-13] MEDS ORDERED: COMMUNICATION ORDER MC SCH (13:00)
--- NOTE | 2022-03-13 13:30 | NUR ---
PT PASS BEDSIDE SWALLOWING TEST WITH APPLE SAUCE. PO MED CRUSHED GIVEN WITH APPLE SAUCE. TOLERATE WELL.
[2022-03-13] MEDS: THERAHONEY WOUND DRESSING TP SCH (13:39)
[2022-03-13] MEDS: GAUZE TP SCH (13:39)
--- NOTE | 2022-03-13 15:30 | NUR ---
WOUND CARE RE-EVALUATION NOTE: SKIN ASSESSMENT DONE WITH PRIMARY RN. DAUGHTER AT BED SIDE, ALL QUESTIONS ANSWERED. SACRALCOCCYX WOUND RESURFACING WITH SURROUNDING NON-BLANCHABLE REDNESS RESOLVED. LEFT HEEL UNSTAGEABLE WOUND NEW WOUND CARE REGIMEN WITH BETADINE, SANTYL OINTMENT, AND KERLIX TO START TODAY ORDERED BY DIETETIC AIDE DR. BENTON. CONTINUE WITH NEW PLAN OF CARE FOR LEFT HEEL. CONTINUE WITH CURRENT REGIMEN FOR SACRALCOCCYX WOUND. POC DISCUSSED WITH PRIMARY RN. INTEGUMENTARY: -INCONTINENT ASSOCIATE DERMATITIS (IAD) TO: B/L GROINS, INNER THIGH AND POSTERIOR THIGH TO SCROTAL, SKIN PINK AND INTACT -PRESSURE INJURY STAGE 3, SACROCOCCYX 3X2X0.1CM, BED IS RED 100% GRANULATING TISSUE, MOIST, NO ODOR, CHARLENE-WOUND SKIN MOIST, HEALING SCAR TISSUE, SURROUNDING NON-BLANCHABLE REDNESS RESOLVED -PRESSURE INJURY UN-STAGEABLE, LEFT HEEL 5X4CM WOUND BED IS RED 10% BROWN/BLACK SLOUGH TISSUE, 90% LIGHT YELLOW SLOUGH TISSUE SMALL AMOUNT SEROUS DRAINAGE, NO ODOR, CHARLENE WOUND DENUDED SKIN.
--- NOTE | 2022-03-13 16:40 | NUR ---
SPEECH THERAPIST DID BEDSIDE SWALLOW TEST. PT. TOLERATE WELL. ORDER MECHANICAL SOFT RENAL DIET.
--- NOTE | 2022-03-13 19:24 | NUR ---
ENDORSED TO EFRAIN KIM RN FOR CONTINUITY OF CARE. ALL QUESTION ARE ANSWERED.VSS
--- NOTE | 2022-03-13 19:55 | NUR ---
RECEIVED PATIENT ON BED IN LOW BACK REST POSITION, ALERT AND ORIENTED; BREATHING EVEN AND UNLABORED AT 2 LITERS 02/NC, S02 100%. CARDIACSCOPE SHOWS RHYTHM HRJ 85/MIN NO ARRHYTHMIAS SEEN. COMMENCING ON IV NS TO KVO VIA G20 ON RIGHT WRIST; PATENT AND INTACT. WITH DIALYSIS ACCESS ON RIGHT SUBCLAVIAN; INTACT. ABDOMEN SOFT; ACTIVE BOWEL SOUNDS. Addendum: 03/14/22 at 0645 by Vijaya Hernandez RN WITH CHEST TUBE TO LEFT LATERAL CHEST TO CONTINOUS LOW SUCTION, DRAINING TO SANGUINOUS OUTPUT.
--- NOTE | 2022-03-13 20:45 | NUR ---
HAD BM TO A LARGE AMOUNT OF LOOSE WATERY BROWN STOOL; KEPT CLEAN DRY AND COMFORTABLE.
--- NOTE | 2022-03-13 23:00 | NUR ---
HAD BM AGAIN TO A MODERATE AMOUNT OF LOOSE STOOL; KEPT CLEAN DRY AND COMFORTABLE.
[2022-03-14] VITALS (17 sets, daily range): BP systolic 146–158; BP diastolic 69–83
[2022-03-14] MEDS: BLOOD GLUCOSE MONITORING 1 DEV DEV FS SCH ×4 (00:40→17:49)
[2022-03-14] MEDS: hydrALAZINE 25 MG TAB PO SCH ×3 (05:31→21:00)
--- NOTE | 2022-03-14 05:45 | NUR ---
COMPLAINED OF FEELING NAUSEATED; MEDICATED WITH ZOFRAN IV.
[2022-03-14] MEDS: ONDANSETRON 4 MG/2 ML VIAL IM/IVP PRN (05:50)
[2022-03-14] MEDS: ALBUTEROL SULFATE/IPRATROPIU 3 ML SOL IH SCH ×3 (07:00→19:57)
--- NOTE | 2022-03-14 07:20 | NUR ---
Chest tube on left chest noted to low continuous suction. No crepitus noted or leaks noted.
--- NOTE | 2022-03-14 07:20 | NUR ---
Opening Received report on pt. Pt AOx4, states no pain or distress on 2L O2 via nasal cannula. IV sites on right FA intact, patent, no infiltration noted. Pt anuric, hemodialysis access on right subclavian. Left foot/heel dressing intact, no drainage noted. No other complaints at this time.
--- NOTE | 2022-03-14 08:05 | NUR ---
Dr. Bernabe rounding on pt, orders made for CT chest without contrast. Dr. Bernabe states he will follow up with chest tube tomorrow for removal.
[2022-03-14] MEDS: VIT-B COMP/VIT-C/FOLIC ACID 1 TAB PO SCH (08:46)
[2022-03-14] MEDS: PANTOPRAZOLE 40 MG INJ VIAL IVP SCH (08:46)
[2022-03-14] MEDS: MEROPENEM 500 MG in NACL 0.9% 50 ML IV SCH ×2 (08:50→21:00)
[2022-03-14] MEDS: GAUZE TP SCH (08:51)
[2022-03-14] MEDS: lisinopriL 20 MG TAB PO SCH (09:00)
[2022-03-14] MEDS: amLODIPine 5 MG TAB PO SCH (09:00)
[2022-03-14 09:36] LABS: BASOPHILS # (AUTO) 0.2 K/uL (0.00-0.22); BASOPHILS % (AUTO) 1.2 % (0.0-2.0); EOSINOPHILS # (AUTO) 1.2 K/uL (0-0.4); EOSINOPHILS % (AUTO) 7.7 % (0.0-4.0); HEMATOCRIT 29.5 % (36-52); HEMOGLOBIN 9.6 g/dL (12.0-18.0); MEAN CORPUSCULAR HEMOGLOBIN 30 pg (27-31); MEAN CORPUSCULAR HGB CONC 32 g/dL (33-37); MEAN CORPUSCULAR VOLUME 91.9 fL (80-94); MONOCYTES # (AUTO) 1.3 K/uL (0.8-1.0); MONOCYTES % (AUTO) 8.8 % (1.7-9.3); NEUTROPHILS # (AUTO) 11.2 K/uL (1.8-7.7); NEUTROPHILS % (AUTO) 75.3 % (42.2-75.2); PLATELET COUNT (AUTO) 313 K/uL (140-450); RED BLOOD CELL COUNT(AUTO) 3.21 MIL/uL (4.20-6.10); RED CELL DISTRIBUTION WIDTH 17.9 % (11.6-13.7); WHITE BLOOD COUNT (AUTO) 14.9 K/uL (4.8-10.8)
[2022-03-14 09:40] LABS: ANION GAP 13.9 (8-16); CARBON DIOXIDE 24.8 mmol/L (21-32); CREATININE 3.9 mg/dL (0.6-1.3); POTASSIUM 4.7 mmol/L (3.5-5.1)
--- NOTE | 2022-03-14 09:45 | NUR ---
Pt provided with breakfast tray, able to tolerate swallowing PO meds and mechanical soft diet and had 25% of meal.
--- NOTE | 2022-03-14 11:00 | NUR ---
Pt off unit to CT with continuous monitoring and O2, accompanied by RN.
--- NOTE | 2022-03-14 11:15 | NUR ---
Pt return to unit from CT. Situated to bed and call light. Chest tube to suction.
--- NOTE | 2022-03-14 12:00 | NUR ---
Hemodialysis being done at bedside
[2022-03-14] MEDS: THERAHONEY WOUND DRESSING TP SCH (12:05)
--- NOTE | 2022-03-14 14:22 | NUR ---
03/14/22 RD FOLLOW UP COMPLETED PLEASE REFER TO NUTRITION ASSESSMENT UNDER CARE ACTIVITY FOR ESTIMATED NUTRITIONAL NEEDS. 1. CONTINUE MECHANICAL SOFT- RENAL DIET AND NEPRO TOLERATED. -RD RECOMMENDS NEPRO BID 2. RD TO FOLLOW-UP 3-5 DAYS, MODERATE RISK REVIEWED BY MINH GARCIA RD
--- NOTE | 2022-03-14 15:30 | NUR ---
Hemodialysis completed, 3L out per HD RN.
--- NOTE | 2022-03-14 17:30 | NUR ---
Pt noted with large amount of BM. Perform neena care, linen change, and dressing change. Pt's daughter also at bedside, fed pt soup.
[2022-03-14] MEDS: INSULIN LISPRO SLIDING SCALE 100 UNITS/ML VIAL SUBQ PRN (17:50)
--- NOTE | 2022-03-14 18:53 | NUR ---
Closing Pt states no pain or distress. Pt's daughter at bedside. IV sites intact, patent. Will endorse plan of care.
--- NOTE | 2022-03-14 19:20 | NUR ---
REPORT GIVEN TO ITZEL ROONEYFLAT KNITTER HELPER BY TONY ROONEY
--- NOTE | 2022-03-14 20:15 | NUR ---
PT TRANSFERRED TO [facility] IN STABLE CONDITION.W/MONITOR ATTACHED.SR NOTED ON MONITOR.LT CHEST TUBE IN PLACE.PT ALERT, TALKING.ON 02NC AT 3LPM.NO SOB NOTED.HD CATHETER TO RT IJ INTACT W/DRY AND INTACT DRESSING.PERIPHERAL IV TO RT WRIST INTACT,SALINE LOCK. PTS DAUGHTER AT BEDSIDE.
[2022-03-15] VITALS: BP 156/71
--- NOTE | 2022-03-15 01:51 | NUR ---
PATIENT ALERT SPEAKS SY[place] PATIENT IS BLIND FROM BEING DIABETIC. CAME FROM [facility] 2030 TO [id number] HIS DAUGHTER AT BED SIDE PATIENT HAD DIALYSIS IN I.C.U TOOK OUT3 LITERS. NO VOID YET. PATIENT HAS MONY CATH FOR DIALYSIS UPPER RIGHT CHEST. HAS X2 20 GA IN RIGHT ARM.PATIENT SINUS ON MONITOR. PATIENT ON 3 LITERS N/C SAT 98%. PATIENT HAS A LEFT CHEST TUBE TO LOW INTERMITTENT SUCTION SCANT DRAINAGE IN PLURAL VAC. PATIENT HAS OPEN WOUND ON LEFT HEEL MAY REMOVE CHEST TUBE FRIDAY.BLOOD SUGAR MID-NITE 126. NO INSULIN GIVEN. NO C/O OF PAIN FROM PATIENT BLOOD PRESSURE 156/71 GIVEN APRESOLINE 50MG. DUE AGAIN 0500.
[2022-03-15 04:00] VITALS: BP 154/72
[2022-03-15] MEDS: hydrALAZINE 25 MG TAB PO SCH ×3 (05:00→21:10)
[2022-03-15] MEDS: BLOOD GLUCOSE MONITORING 1 DEV DEV FS SCH ×4 (06:00→18:51)
[2022-03-15] MEDS: ALBUTEROL SULFATE/IPRATROPIU 3 ML SOL IH SCH ×3 (07:30→19:27)
--- NOTE | 2022-03-15 07:30 | NUR ---
PT RECEIVED FROM [facility] RT ON 3L NASAL CANNULA, PT SEEN LAYING IN SEMIFOWLERS POSITION IN NO RESPIRATORY DISTRESS, WITH A SATURATION OF 97%, PT ALSO TOLERATED TX WELL, WILL CONTINUE TO MONITOR.
[2022-03-15 08:00] VITALS: BP 150/90
--- NOTE | 2022-03-15 08:00 | NUR ---
AWAKE , ON TELE MONITOR , CHEST TUBE FLUCTUATING WELL , NID - O2 SAT WNL , WILL CONT. TO MONITOR
[2022-03-15] MEDS: GAUZE TP SCH (09:30)
[2022-03-15] MEDS ORDERED: VANCOMYCIN PER PHARMACY MC PRN (10:30)
[2022-03-15] MEDS ORDERED: NEP PO (10:36)
[2022-03-15] MEDS ORDERED: AMLO-3 PO (10:36)
[2022-03-15] MEDS ORDERED: HYDR-4420 PO (10:36)
[2022-03-15] MEDS ORDERED: LISI20TA29 PO (10:36)
[2022-03-15] MEDS ORDERED: ALBU3SOL83 IH ×2 (10:36)
[2022-03-15] MEDS ORDERED: MELA3TAB21 PO (10:36)
[2022-03-15] MEDS ORDERED: MERO500P9 IV (10:36)
[2022-03-15] MEDS ORDERED: VANC500F IV (10:36)
[2022-03-15] MEDS ORDERED: DOCU150L25 GT (10:36)
[2022-03-15] MEDS ORDERED: ACET-1182 PO (10:36)
[2022-03-15] MEDS ORDERED: GLUC-805 FS (10:36)
[2022-03-15] MEDS: MEROPENEM 500 MG in NACL 0.9% 50 ML IV SCH ×2 (10:50→21:11)
[2022-03-15] MEDS: amLODIPine 5 MG TAB PO SCH (10:57)
[2022-03-15] MEDS: VIT-B COMP/VIT-C/FOLIC ACID 1 TAB PO SCH (10:57)
[2022-03-15] MEDS: lisinopriL 20 MG TAB PO SCH (10:57)
[2022-03-15] MEDS: PANTOPRAZOLE 40 MG INJ VIAL IVP SCH (10:58)
[2022-03-15] MEDS: EPOETIN ALFA-EPBX 10,000 UNITS/ML VIAL SUBQ SCH (10:59)
[2022-03-15] MEDS: INSULIN LISPRO SLIDING SCALE 100 UNITS/ML VIAL SUBQ PRN (11:54)
[2022-03-15 12:00] VITALS: BP 140/90
[2022-03-15] MEDS ORDERED: VANCOMYCIN 1,000 MG in DEXTROSE 5% 250 ML IV SCH (12:00)
--- NOTE | 2022-03-15 12:00 | NUR ---
ROUNDS , NO S/SX OF ACUTE DISTRESS NOTED , O2 SAT WNL , CHEST TUBE DRAINAGE FLUACTUATING WELL , ON TELE MONITOR .
[2022-03-15] MEDS: THERAHONEY WOUND DRESSING TP SCH (13:02)
--- NOTE | 2022-03-15 14:00 | NUR ---
ROUNDS , NO COMPLAIN MADE ,. O2 SAT WNL , CHEST TUBE DRAINAGE FLUATUATING WELL , ON TELE MONITOR , CALL LIGHT WITHIN REACH .
[2022-03-15 16:00] VITALS: BP 144/92
--- NOTE | 2022-03-15 16:08 | NUR ---
per dr. crespo - discharge pt . with chest tube drainage - chest tube drainage c/o long term care phlebotomist care facility.
--- NOTE | 2022-03-15 19:17 | NUR ---
endorsed pt stable .
--- NOTE | 2022-03-15 19:20 | NUR ---
RECEIVED REPORT FROM DAY SHIFT RN FOR CONTINUITY OF CARE. PT IS AWAKE. PT IS AAOX4 [place] SPEAKER. PT IS ON NC 3L. PT HAS RIGHT FOREARM 20 GAUGE. AND R IJ. PT HAS WOUND ON LEFT HEEL AND SACRAL WOUND. PLAN OF CARE DISCUSSED. CALL LIGHT WITHIN REACH. WILL CONTINUE TO MONITOR THE PT.
[2022-03-15 20:00] VITALS: BP 141/79
--- NOTE | 2022-03-15 21:28 | NUR ---
SCHEDULE MEDS GIVEN. NO ADVERSE REACTION NOTED. WILL CONTINUE TO MONITOR THE PT.
[2022-03-16] VITALS: BP 144/75
[2022-03-16] MEDS: BLOOD GLUCOSE MONITORING 1 DEV DEV FS SCH ×4 (00:14→18:41)
--- NOTE | 2022-03-16 00:15 | NUR ---
CHECKED PT BLOOD GLUCOSE. BLOOD GLUCOSE WAS 124. NO COVERAGE NEEDED. PT DENIES PAIN AND HAS NO COMPLAINS. WILL CONTINUE TO MONITOR THE PT.
[2022-03-16 04:00] VITALS: BP 147/70
[2022-03-16] MEDS: hydrALAZINE 25 MG TAB PO SCH ×3 (05:06→21:00)
--- NOTE | 2022-03-16 05:12 | NUR ---
SCHEDULE MED GIVEN. NO ADVERSE REACTION NOTED. NO COMPLAINS. WILL CONTINUE TO MONITOR THE PT.
--- NOTE | 2022-03-16 07:26 | NUR ---
ENDORSED PT TO DAY SHIFT RN FOR CONTINUITY OF CARE. PT IS STABLE.
[2022-03-16 07:40] LABS: BASOPHILS # (AUTO) 0.1 K/uL (0.00-0.22); BASOPHILS % (AUTO) 1.1 % (0.0-2.0); EOSINOPHILS # (AUTO) 0.7 K/uL (0-0.4); EOSINOPHILS % (AUTO) 6.2 % (0.0-4.0); HEMATOCRIT 27.9 % (36-52); HEMOGLOBIN 9.1 g/dL (12.0-18.0); LYMPHOCYTES # (AUTO) 1.1 K/uL (2.0-11.5); LYMPHOCYTES % (AUTO) 10.1 % (20.5-51.1); MEAN CORPUSCULAR HEMOGLOBIN 30 pg (27-31); MEAN CORPUSCULAR HGB CONC 33 g/dL (33-37); MEAN CORPUSCULAR VOLUME 92.6 fL (80-94); MONOCYTES # (AUTO) 1.4 K/uL (0.8-1.0); MONOCYTES % (AUTO) 12.9 % (1.7-9.3); NEUTROPHILS # (AUTO) 7.8 K/uL (1.8-7.7); NEUTROPHILS % (AUTO) 69.7 % (42.2-75.2); PLATELET COUNT (AUTO) 317 K/uL (140-450); RED BLOOD CELL COUNT(AUTO) 3.01 MIL/uL (4.20-6.10); RED CELL DISTRIBUTION WIDTH 18.8 % (11.6-13.7); WHITE BLOOD COUNT (AUTO) 11.2 K/uL (4.8-10.8)
[2022-03-16 07:44] LABS: ANION GAP 14.8 (8-16); CARBON DIOXIDE 23.3 mmol/L (21-32); POTASSIUM 5.1 mmol/L (3.5-5.1)
[2022-03-16 07:50] LABS: CREATININE 4.7 mg/dL (0.6-1.3)
[2022-03-16] MEDS: ALBUTEROL SULFATE/IPRATROPIU 3 ML SOL IH SCH ×3 (07:59→20:03)
--- NOTE | 2022-03-16 07:59 | NUR ---
RELAYED TO DR. JOHN PALACIO 4.7 - WAITING FURTHER ORDER.
--- NOTE | 2022-03-16 07:59 | NUR ---
RECEIVED WITH CHEST TUBE TO LEFT SIDE PLEURAL VAC ON AND FUNCTIONING WELL; SUPPLEMENTAL OXYGEN AT 3 LPM VIA NC SATURATION 99% POST [facility] THERAPY TITRATED FIO2 TO 2 LPM CHAYO/RN NOTIFIED
[2022-03-16 08:00] VITALS: BP 145/95
--- NOTE | 2022-03-16 08:00 | NUR ---
rounds . no s/sx of acute distress noted at this time , chest tube - fluactuating well on tele monitor - sr , o2 sat 99 % , call light within reach .
[2022-03-16] MEDS: PANTOPRAZOLE 40 MG INJ VIAL IVP SCH (09:58)
[2022-03-16] MEDS: VIT-B COMP/VIT-C/FOLIC ACID 1 TAB PO SCH (10:00)
[2022-03-16] MEDS: amLODIPine 5 MG TAB PO SCH (10:00)
[2022-03-16] MEDS: GAUZE TP SCH (10:00)
[2022-03-16] MEDS: lisinopriL 20 MG TAB PO SCH (10:00)
--- NOTE | 2022-03-16 10:00 | NUR ---
rounds , no s/sx of acute distress noted , 02 sat 99 % . chest tube fluactuating well
[2022-03-16 12:00] VITALS: BP 146/76
--- NOTE | 2022-03-16 13:57 | NUR ---
SUTURE POLISHER AT BEDSIDE FOR PATIENT PHYSICAL HYGIENE AND REPOSITION NO DISTRESS NOTED PROFILING MACHINE SETUP OPERATOR TO ATTEMPT HHN THERAPY AT A LATER TIME
[2022-03-16] MEDS: THERAHONEY WOUND DRESSING TP SCH (14:00)
[2022-03-16 16:00] VITALS: BP 152/71
--- NOTE | 2022-03-16 16:37 | NUR ---
sent msg to dr. crespo - pt's daughter is disagreed to put his father to facility . maria isabel feng [phone] Addendum: 03/16/22 at 1758 by Alexus Owens RN charge nurse rossy Rodriguez she read my msg i sent to dr. crespo .
--- NOTE | 2022-03-16 18:33 | NUR ---
10,000 u heparin - handled by [facility] dialysis nurse - for dialysis port flushing . will cont. to monitor the pt .
--- NOTE | 2022-03-16 19:50 | NUR ---
ENDORSED - PT - STABLE , W/ STILL ON GOING HEMODIALYSIS - DIALYSIS NURSE IS AT BEDSIDE . I ENDORSE TO NEVIN SANTA THAT I SENT MSG TO DR. LOPEZ ABOUT THE OBJECTION / DISAGREE OF PT'S DAUGHTER GLENN TO PUT PT ON FACILITY - TO SUM UP DR. LOPEZ IS AWARE THAT THE PT IS STILL HERE IN OUR [facility] - I ENDORSE TO ARINA SHE HAVE TO FF UP TO DR. COYLE OR SHE HAVE TO ENDORSE TO OMAR SOLIMAN NURSE ABOUT THE CONT. OF ABX. WHILE PT IS STILL HERE IN THE HOSPITAL .
[2022-03-16 20:00] VITALS: BP 176/69
[2022-03-17] VITALS (7 sets, daily range): BP systolic 145–176; BP diastolic 62–75
--- NOTE | 2022-03-17 01:43 | NUR ---
PATIENT AWAKE ALERT LEGAL BLIND FROM DIABETES LUNGS DIMINISH HAD DIALYSIS 03/16/22 TOOK OUT 2 LITERS. TEMP 98.9 HAS RT NECK DIALYSIS CATH. PATIENT SINUS ON MONITOR B/P HIGH 176/69. GIVEN APRESOLINE 50 MG PO. SO FAR NO VOID PATIENT HAS A CHEST T-TUBE TO LOW INTERMITTENT SUCTION NO NEW DRAIN. [place] CLAMPS AT BED SIDE. HAS OPEN WOUND ON LEFT HEEL. BLOOD SUGAR 0000 139 NO INSULIN GIVEN NO OTHER SIGNS OF DISTRESS.
[2022-03-17] MEDS: hydrALAZINE 25 MG TAB PO SCH ×3 (05:03→21:30)
[2022-03-17] MEDS: BLOOD GLUCOSE MONITORING 1 DEV DEV FS SCH ×4 (06:00→17:44)
--- NOTE | 2022-03-17 08:00 | NUR ---
RECEIVE ENDORSEMENT FROM PM SHIFT NURSE THAT PATIENT REST IN BED, PIV R. FOREARM SALINE LOCK, DIALYSIS TUNNEL/MONY CATHETER R. UPPER CHEST, CHEST TUBE PRESENT AT L. LATER ASPECT OF CHEST; PRESSURE INJURY AT L. HEEL, AND COCCYX WILL CONTINUE TO MONITOR
[2022-03-17] MEDS: ALBUTEROL SULFATE/IPRATROPIU 3 ML SOL IH SCH ×3 (08:48→19:42)
[2022-03-17] MEDS: PANTOPRAZOLE 40 MG INJ VIAL IVP SCH (09:34)
[2022-03-17] MEDS: amLODIPine 5 MG TAB PO SCH (09:39)
[2022-03-17] MEDS: VIT-B COMP/VIT-C/FOLIC ACID 1 TAB PO SCH (09:39)
[2022-03-17] MEDS: lisinopriL 20 MG TAB PO SCH (09:40)
[2022-03-17] MEDS: GAUZE TP SCH (09:44)
[2022-03-17] MEDS: INSULIN LISPRO SLIDING SCALE 100 UNITS/ML VIAL SUBQ PRN (12:11)
[2022-03-17] MEDS: THERAHONEY WOUND DRESSING TP SCH (13:35)
--- NOTE | 2022-03-17 19:25 | NUR ---
ENDORSE PATIENT TO PM SHIFT NURSE WHILE PATIENT REST IN BED, PIV R. FOREARM SALINE LOCK, DIALYSIS TUNNEL/MONY CATHETER R. UPPER CHEST, CHEST TUBE @L. LATERAL SIDE OF CHEST.
--- NOTE | 2022-03-17 19:30 | NUR ---
RECEIVED REPORT FROM DAY SHIFT RN FOR CONTINUITY OF CARE. PT IS AWAKE. PT IS AAOX4 ESTONIAN SPEAKER. PT IS ON NC 2L. PT HAS RIGHT FOREARM 20 GAUGE. DIALYSIS TUNNEL/MONY CATHETER R. UPPER CHEST. PT HAS WOUND ON LEFT HEEL AND SACRAL WOUND. PT HAS CHEST TUBE ON LEFT SIDE. PLAN OF CARE DISCUSSED. CALL LIGHT WITHIN REACH. WILL CONTINUE TO MONITOR THE PT.
--- NOTE | 2022-03-17 21:41 | NUR ---
SCHEDULE MEDS GIVEN. NO ADVERSE REACTION NOTED. WILL CONTINUE TO MONITOR THE PT.
[2022-03-18] VITALS: BP 140/68
[2022-03-18] MEDS: INSULIN LISPRO SLIDING SCALE 100 UNITS/ML VIAL SUBQ PRN ×2 (00:14→18:05)
[2022-03-18] MEDS: BLOOD GLUCOSE MONITORING 1 DEV DEV FS SCH ×4 (00:14→18:03)
--- NOTE | 2022-03-18 00:57 | NUR ---
WOUND DRESSING DONE. PT DENIES ANY PAIN AND HE SAYS HE FEELS FINE. NO COMPLAINS AT THIS TIME. WILL CONTINUE TO MONITOR THE PT.
--- NOTE | 2022-03-18 01:58 | NUR ---
OBSERVED PT. PT IS SLEEPING COMFORTABLY IN BED. PT NOT IN ANY ACUTE DISTRESS. VISIBLE CHEST RISE AND FALL. CALL LIGHT WITHIN REACH. ALL SAFETY MEASURES TAKEN. WILL CONTINUE TO MONITOR THE PT.
[2022-03-18 04:00] VITALS: BP 134/65
--- NOTE | 2022-03-18 04:06 | NUR ---
PT OBSERVED. PT IS ASLEEP. PT NOT IN ANY ACUTE DISTRESS. BREATHING EVEN AND UNLABORED. CALL LIGHT WITHIN REACH.
[2022-03-18] MEDS: hydrALAZINE 25 MG TAB PO SCH ×3 (04:22→21:55)
--- NOTE | 2022-03-18 04:31 | NUR ---
SCHEDULE MEDS GIVE. NO ADVERSE REACTION NOTED. PT DENIES ANY PAIN. NO COMPLAINS. WILL CONTINUE TO MONITOR THE PT.
[2022-03-18] MEDS: ALBUTEROL SULFATE/IPRATROPIU 3 ML SOL IH SCH ×3 (06:44→19:02)
--- NOTE | 2022-03-18 07:20 | NUR ---
ENDORSED PT TO DAY SHIFT RN FOR CONTINUITY OF CARE. PT IS STABLE.
[2022-03-18 08:00] VITALS: BP 163/76
--- NOTE | 2022-03-18 08:02 | NUR ---
RECEIVE ENDORSEMENT FROM PM SHIFT NURSE WHILE PATIENT IS REST IN BED, PIV R. FOREARM SALINE LOCK, DIALYSIS TUNNEL/MONY CATHETER R. UPPER CHEST, CHEST TUBE PRESENT AT L. LATER ASPECT OF CHEST; PRESSURE INJURY AT L. HEEL (DRESSING CHANGED AFTER RECEIVE ENDORSEMENT), AND COCCYX. WILL CONTINUE TO MONITOR
[2022-03-18] MEDS: lisinopriL 20 MG TAB PO SCH (08:57)
[2022-03-18] MEDS: amLODIPine 5 MG TAB PO SCH (08:58)
[2022-03-18] MEDS: VIT-B COMP/VIT-C/FOLIC ACID 1 TAB PO SCH (08:58)
[2022-03-18] MEDS: PANTOPRAZOLE 40 MG INJ VIAL IVP SCH (08:59)
[2022-03-18] MEDS: EPOETIN ALFA-EPBX 10,000 UNITS/ML VIAL SUBQ SCH (09:03)
[2022-03-18] MEDS: GAUZE TP SCH (09:11)
[2022-03-18 12:00] VITALS: BP 149/69
--- NOTE | 2022-03-18 13:00 | NUR ---
UNABLE TO GIVE BREATHING TREATMENT DUE TO DIALYSIS. WILL TRY LATER.
[2022-03-18] MEDS: THERAHONEY WOUND DRESSING TP SCH (13:59)
--- NOTE | 2022-03-18 15:00 | NUR ---
PT SATURATION ON 2LNC WAS 100%. TOOK PT OFF NASAL CANNULA, HIS SATURATION WAS 95-96% ON ROOM AIR.
--- NOTE | 2022-03-18 15:36 | NUR ---
PHYSICAL THERAPY CO-SIGN The Physical Therapy Progress Notes documented by Np have been reviewed. Reviewed/Co-Signed by: Reema Guzman Documentation Done by:TITO RAMON PTA Addendum: 03/18/22 at 1537 by Reema Guzman PT Amended: Links added.
[2022-03-18 16:00] VITALS: BP 150/72
[2022-03-18] MEDS: ONDANSETRON 4 MG/2 ML VIAL IM/IVP PRN (18:51)
--- NOTE | 2022-03-18 19:40 | NUR ---
RECEIVED ENDORSEMENT FROM DAY SHIFT NURSE FOR CONTINUITY OF PT CARE. PATIENT IS REST IN BED, PIV R. FOREARM SALINE LOCK, DIALYSIS TUNNEL/MONY CATHETER R. UPPER CHEST, CHEST TUBE PRESENT AT L. LATER ASPECT OF CHEST W/ NO DRAINING THROUGH SUCTION; PRESSURE INJURY AT L. HEEL COVERED WITH DRY AND CLEAN DRESSING. NO SOB OR DISTRESS. CONTINUE TO MONITOR.
--- NOTE | 2022-03-18 19:41 | NUR ---
ENDORSE PATIENT TO PM SHIFT NURSE WHILE PATIENT IS REST IN BED, PIV R. FOREARM SALINE LOCK, DIALYSIS TUNNEL/MONY CATHETER R. UPPER CHEST W/ 2.5 LITER REMOVE FROM TODAY'S DIALYSIS, CHEST TUBE PRESENT AT L. LATER ASPECT OF CHEST W/ NO DRAINING THROUGH SUCTION; PRESSURE INJURY AT L. HEEL (DRESSING CHANGED), AND COCCYX (DRESSING CHANGED)
[2022-03-18 20:00] VITALS: BP 152/67
--- NOTE | 2022-03-18 23:50 | NUR ---
PERSONAL CARE GIVEN. PT HAS LARGE SOFT BM.
[2022-03-19] VITALS: BP 152/69
[2022-03-19] MEDS: INSULIN LISPRO SLIDING SCALE 100 UNITS/ML VIAL SUBQ PRN ×3 (01:10→17:21)
[2022-03-19 04:00] VITALS: BP 160/69
[2022-03-19] MEDS: hydrALAZINE 25 MG TAB PO SCH ×3 (05:57→21:44)
--- NOTE | 2022-03-19 05:57 | NUR ---
PT TOOK PILL OF MORNING MED WITH NO PROBLEM, NO DIFFICULTY ON SWALLOWING.
[2022-03-19] MEDS: BLOOD GLUCOSE MONITORING 1 DEV DEV FS SCH ×4 (06:00→17:19)
--- NOTE | 2022-03-19 06:00 | NUR ---
BLOOD SUGAR = 104, NO SLIDING SCALE COVERAGE.
--- NOTE | 2022-03-19 06:30 | NUR ---
PERSONAL HYGIENE RENDERED, CHANGE DRESSING ON COCCYX AREA. COCCYX WOUND CLOSE, CLEAN AND DRY. NO COMPLAINT OF PAIN.
[2022-03-19] MEDS: ALBUTEROL SULFATE/IPRATROPIU 3 ML SOL IH SCH ×3 (07:00→19:00)
--- NOTE | 2022-03-19 07:20 | NUR ---
PT IS ASLEEP. NO SOB OR DISTRESS. PT DENIED OF PAIN. ENDORSED TO DAY SHIFT NURSE FOR CONTINUITY OF CARE.
--- NOTE | 2022-03-19 07:48 | NUR ---
RT NOTES PT SLEEPING HR 93 SPO2 94%. TX WAS NOT GIVEN. NO DISTRESS NOTED.
[2022-03-19 08:00] VITALS: BP 166/74
[2022-03-19] MEDS: PANTOPRAZOLE 40 MG INJ VIAL IVP SCH (08:23)
[2022-03-19] MEDS: VIT-B COMP/VIT-C/FOLIC ACID 1 TAB PO SCH (08:24)
[2022-03-19] MEDS: lisinopriL 20 MG TAB PO SCH (08:25)
[2022-03-19] MEDS: amLODIPine 5 MG TAB PO SCH (08:26)
[2022-03-19] MEDS: GAUZE TP SCH (09:33)
[2022-03-19 12:00] VITALS: BP 150/67
[2022-03-19] MEDS: THERAHONEY WOUND DRESSING TP SCH (13:28)
--- NOTE | 2022-03-19 14:11 | NUR ---
CHEST CT DONE TO VERIFY PATENCY OF CHEST TUBE & IJ MONY CATHETER PLACEMENT, PLEURAL EFFUSION STATUS. PATIENT'S CHEST TUBE CLAMPED AT THIS TIME. WILL CONTINUE TO MONITOR.
--- NOTE | 2022-03-19 15:42 | NUR ---
03/19/22 RD FOLLOW UP COMPLETED PLEASE REFER TO NUTRITION ASSESSMENT UNDER CARE ACTIVITY FOR ESTIMATED NUTRITIONAL NEEDS. 1. CONTINUE MECHANICAL SOFT- RENAL DIET TOLERATED -RECOMMEND NEPRO AND PROSOURCE BID PER RX PROTOCOL 2. RD TO FOLLOW-UP 3-5 DAYS, MODERATE RISK REVIEWED BY MINH GARCIA RD
[2022-03-19 16:00] VITALS: BP 155/40
--- NOTE | 2022-03-19 19:35 | NUR ---
RECEIVED ENDORSEMENT FROM DAY SHIFT NURSE FOR CONTINUITY OF PT CARE. PATIENT IS ON BED, AWAKE & ALERT AND ON STABLE CONDITION, PIV R. FOREARM SALINE LOCK INTACT, DIALYSIS TUNNEL/MONY CATHETER R. UPPER CHEST, CHEST TUBE PRESENT AT L. LATER ASPECT OF CHEST W/ NO DRAINING THROUGH SUCTION; PRESSURE INJURY AT L. HEEL COVERED WITH DRY AND CLEAN DRESSING. NO SOB OR DISTRESS. CONTINUE TO MONITOR.
--- NOTE | 2022-03-19 19:36 | NUR ---
ENDORSE PATIENT TO PM SHIFT NURSE WHILE PATIENT IS REST IN BED, PIV R. FOREARM SALINE LOCK, DIALYSIS TUNNEL/MONY CATHETER R. UPPER CHEST, CHEST TUBE PRESENT AT L. LATER ASPECT OF CHEST CLAMPED; PRESSURE INJURY AT L. HEEL AND COCCYX (DRESSING CHANGED)
[2022-03-19 20:00] VITALS: BP 154/79
--- NOTE | 2022-03-19 21:44 | NUR ---
PT ABLE TO SWALLOW HIS EVENING MEDS WITH NO PROBLEM, NO ASPIRATION OCCURRENCE NOTED.
[2022-03-20] VITALS: BP 149/70
--- NOTE | 2022-03-20 | NUR ---
BLOOD SUGAR CHECK = 131, NO SLIDING SCALE COVERAGE. PT ON STABLE CONDITION, RESPONSIVE TO STIMULI.
--- NOTE | 2022-03-20 02:00 | NUR ---
PT IS ASLEEP, NO SOB OR DISTRESS. PT IS ON ROOM AIR.
[2022-03-20 04:00] VITALS: BP 162/75
[2022-03-20] MEDS: hydrALAZINE 25 MG TAB PO SCH ×3 (05:18→21:36)
[2022-03-20] MEDS: BLOOD GLUCOSE MONITORING 1 DEV DEV FS SCH ×4 (05:26→18:14)
--- NOTE | 2022-03-20 05:26 | NUR ---
BLOOD SUGAR CHECK = 119. NO SLIDING SCALE COVERAGE. PT IS STABLE, DENIED OF PAIN OR DISCOMFORT. PT ABLE TO SWALLOW WHOLE PILL OF MEDS WITH NO PROBLEM. PT DENIED OF NAUSEA OR VOMITING.
--- NOTE | 2022-03-20 07:25 | NUR ---
PT IS ON STABLE CONDITION. IV SALINE LOCK ON RIGHT FOREARM 20G INTACT AND PATENT. LEFT HEEL ULCER IS COVERED WITH CLEAN AND DRY DRESSING. PT DENIES OF PAIN/DISCOMFORT AT THIS TIME. CHEST TUBE ON LEFT CHEST INTACT AND PATENT AND DRY. IJ MONY ON RIGHT UPPER CHEST INTACT AND DRY. DENIES OF PAIN/CHEST PAIN, NAUSEA OR VOMITING. NO CHANGE OF CONDITION. ALL SAFETY MEASURES ARE IN PLACE. ENDORSE TO DAY SHIFT NURSE FOR CONTINUITY OF CARE.
[2022-03-20] MEDS: ALBUTEROL SULFATE/IPRATROPIU 3 ML SOL IH SCH ×3 (07:30→19:21)
--- NOTE | 2022-03-20 07:30 | NUR ---
PT RECEIVED FROM [facility] RT, PT IS SEEN IN NO RESPIRATORY DISTRESS COMMUNICATING IN LATVI[place], STATING HE COUGHS UP PHLEGM, PT TOLERATED TREATMENT WELL. PT IS ON ROOM AIR SATURATING WELL WITH CHEST TUBE ON LEFT SIDE CONNECTED TO WALL SUCTION, AMBU BAG AT BEDSIDE AND BED WHEELS LOCKED. WILL CONTINUE TO MONITOR PT.
--- NOTE | 2022-03-20 07:30 | NUR ---
RECEIVED REPORT FROM latin dancer RN FOR CONTINUITY OF CARE. PT IS AWAKE. PT IS AAOX4 [place] SPEAKER. PT IS ON RA, NO RESPIRATORY DISTRESS. PT HAS RIGHT FOREARM 20 GAUGE. DIALYSIS TUNNEL CATHETER R UPPER CHEST. PT HAS WOUND ON LEFT HEEL AND SACRAL WOUND. PT HAS CHEST TUBE ON LEFT SIDE. PLAN OF CARE DISCUSSED. CALL LIGHT WITHIN REACH. WILL CONTINUE TO MONITOR THE PT.
[2022-03-20 08:00] VITALS: BP 156/79
[2022-03-20] MEDS: VIT-B COMP/VIT-C/FOLIC ACID 1 TAB PO SCH (08:28)
[2022-03-20] MEDS: amLODIPine 5 MG TAB PO SCH (08:28)
[2022-03-20] MEDS: lisinopriL 20 MG TAB PO SCH (08:28)
[2022-03-20] MEDS: PANTOPRAZOLE 40 MG INJ VIAL IVP SCH (08:28)
[2022-03-20] MEDS: EPOETIN ALFA-EPBX 10,000 UNITS/ML VIAL SUBQ SCH (08:29)
[2022-03-20] MEDS: GAUZE TP SCH (08:58)
--- NOTE | 2022-03-20 09:30 | NUR ---
DUE MEDS GIVEN TOLERATED WELL
[2022-03-20] MEDS: THERAHONEY WOUND DRESSING TP SCH (12:56)
--- NOTE | 2022-03-20 15:39 | NUR ---
Attempted to see pt; pt on dialysis and unavailable for physical therapy
[2022-03-20 16:00] VITALS: BP 152/70
--- NOTE | 2022-03-20 16:00 | NUR ---
HEMODIALYSIS DONE, 2L OUTPUT
--- NOTE | 2022-03-20 17:00 | NUR ---
WOUND TX DONE ON LEFT HEEL WOUND
[2022-03-20] MEDS: INSULIN LISPRO SLIDING SCALE 100 UNITS/ML VIAL SUBQ PRN (18:15)
--- NOTE | 2022-03-20 19:30 | NUR ---
RECEIVED PT ENDORSEMENT FROM DAY SHIFT NURSE FOR CONTINUITY OF PT CARE. PATIENT IS ON BED, AWAKE & ALERT AND ON STABLE CONDITION, PIV R. FOREARM SALINE LOCK INTACT, DIALYSIS TUNNEL/MONY CATHETER R. UPPER CHEST, CHEST TUBE PRESENT AT L. LATER ASPECT OF CHEST W/ NO DRAINAGE THROUGH SUCTION; PRESSURE INJURY AT L. HEEL COVERED WITH DRY AND CLEAN DRESSING. NO SOB OR DISTRESS. CONTINUE TO MONITOR.
--- NOTE | 2022-03-20 22:00 | NUR ---
PT IS ON STABLE CONDITION AND ASLEEP. NO SOB OR DISTRESS.
[2022-03-21] VITALS: BP 152/70
--- NOTE | 2022-03-21 | NUR ---
BLOOD SUGAR CHECK = 170 = 2 UNITS OF HUMALOG ADMINISTERED.
[2022-03-21] MEDS: BLOOD GLUCOSE MONITORING 1 DEV DEV FS SCH ×4 (01:52→16:51)
[2022-03-21] MEDS: INSULIN LISPRO SLIDING SCALE 100 UNITS/ML VIAL SUBQ PRN ×2 (01:52→16:52)
--- NOTE | 2022-03-21 02:00 | NUR ---
PT IS ASLEEP AND ON ROOM AIR. NO SOB OR DISTRESS.
--- NOTE | 2022-03-21 04:00 | NUR ---
PT RESPONSIVE ON STIMULI. NO SOB OR DISTRESS.
[2022-03-21] MEDS: hydrALAZINE 25 MG TAB PO SCH ×3 (05:26→21:45)
--- NOTE | 2022-03-21 06:00 | NUR ---
BLOOD SUGAR CHECK = 96, NO SLIDING SCALE COVERAGE. PT IS ON STABLE CONDITION.
[2022-03-21] MEDS: ALBUTEROL SULFATE/IPRATROPIU 3 ML SOL IH SCH ×3 (07:30→19:29)
--- NOTE | 2022-03-21 07:30 | NUR ---
PT RECEIVED FROM [facility] RT, PT SEEN IN SEMIFOLWERS IN BED RESTING AND ALERT, PT TOLERATED TX WELL, AND SATING WELL. WILL CONTINUE TO MONITOR.
[2022-03-21 08:00] VITALS: BP 165/72
--- NOTE | 2022-03-21 08:05 | NUR ---
RECEIVED REPORT FROM THE NIGHT NURSE, PT IS SLEEPING NO SOB, THE CHEST TUBE IS IN PLACE. [id number]
[2022-03-21] MEDS: lisinopriL 20 MG TAB PO SCH (08:59)
[2022-03-21] MEDS: amLODIPine 5 MG TAB PO SCH (09:00)
[2022-03-21] MEDS: VIT-B COMP/VIT-C/FOLIC ACID 1 TAB PO SCH (09:00)
[2022-03-21] MEDS: PANTOPRAZOLE 40 MG INJ VIAL IVP SCH (09:00)
[2022-03-21] MEDS: GAUZE TP SCH (11:24)
[2022-03-21] MEDS: THERAHONEY WOUND DRESSING TP SCH (13:41)
[2022-03-21 16:00] VITALS: BP 122/61
--- NOTE | 2022-03-21 19:15 | NUR ---
RECEIVED PATIENT FROM AM SHIFT NURSE. PATIENT RESTING COMFORTABLY IN BED. ON ROOM AIR. NO SOB NOTED. BREATHING REGULAR NON LABORED. IV ACCESS ON THE RIGHT ARM SALINE LOCK. MONY CATHETER ON THE RIGHT UPPER CHEST DIALYSIS ACCESS. ALL SAFETY PRECAUTIONS ARE IN PLACE. WHEELS OF BED LOCK. DENIES PAIN. CALL LIGHT WITHIN REACH. WILL CONTINUE TO MONITOR.
--- NOTE | 2022-03-21 21:44 | NUR ---
ADMINISTERED ALL SCHEDULED MEDICATIONS ORDERED.
[2022-03-22] VITALS: BP 149/78
[2022-03-22] MEDS: BLOOD GLUCOSE MONITORING 1 DEV DEV FS SCH ×3 (00:28→12:00)
[2022-03-22] MEDS: INSULIN LISPRO SLIDING SCALE 100 UNITS/ML VIAL SUBQ PRN ×2 (00:30→13:17)
--- NOTE | 2022-03-22 00:30 | NUR ---
BLOOD SUGAR CHECK WAS 173 HUMALOG INSULIN ADMINISTERED ORDERED PER SLIDING SCALE.
--- NOTE | 2022-03-22 02:45 | NUR ---
PATIENT SLEEPING BREATHING NORMAL WITH SYMMETRICAL RISE AND FALL OF THE CHEST.
[2022-03-22] MEDS: hydrALAZINE 25 MG TAB PO SCH ×2 (05:24→13:00)
--- NOTE | 2022-03-22 05:32 | NUR ---
BLOOD SUGAR CHECK WAS 125. NO INSULIN COVERAGE NEEDED.
[2022-03-22] MEDS: ALBUTEROL SULFATE/IPRATROPIU 3 ML SOL IH SCH ×2 (07:14→13:47)
--- NOTE | 2022-03-22 07:45 | NUR ---
REPORT GIVEN TO DAY SHIFT NURSE FOR CONTINUITY OF CARE.
[2022-03-22 08:00] VITALS: BP 141/77
[2022-03-22] MEDS: GAUZE TP SCH (09:00)
[2022-03-22] MEDS: lisinopriL 20 MG TAB PO SCH (09:00)
[2022-03-22] MEDS: amLODIPine 5 MG TAB PO SCH (09:00)
[2022-03-22 09:03] LABS: BASOPHILS # (AUTO) 0.1 K/uL (0.00-0.22); BASOPHILS % (AUTO) 1.2 % (0.0-2.0); EOSINOPHILS # (AUTO) 0.4 K/uL (0-0.4); EOSINOPHILS % (AUTO) 3.7 % (0.0-4.0); HEMATOCRIT 30.3 % (36-52); HEMOGLOBIN 10.1 g/dL (12.0-18.0); LYMPHOCYTES % (AUTO) 10.1 % (20.5-51.1); MEAN CORPUSCULAR HEMOGLOBIN 31 pg (27-31); MEAN CORPUSCULAR HGB CONC 33 g/dL (33-37); MEAN CORPUSCULAR VOLUME 92.2 fL (80-94); MONOCYTES # (AUTO) 0.8 K/uL (0.8-1.0); MONOCYTES % (AUTO) 8.2 % (1.7-9.3); NEUTROPHILS # (AUTO) 7.9 K/uL (1.8-7.7); NEUTROPHILS % (AUTO) 76.8 % (42.2-75.2); PLATELET COUNT (AUTO) 274 K/uL (140-450); RED BLOOD CELL COUNT(AUTO) 3.29 MIL/uL (4.20-6.10); RED CELL DISTRIBUTION WIDTH 17.1 % (11.6-13.7); WHITE BLOOD COUNT (AUTO) 10.3 K/uL (4.8-10.8)
[2022-03-22 09:09] LABS: ANION GAP 15.8 (8-16); POTASSIUM 3.8 mmol/L (3.5-5.1)
[2022-03-22 10:08] LABS: CREATININE 4.3 mg/dL (0.6-1.3)
[2022-03-22] MEDS: PANTOPRAZOLE 40 MG INJ VIAL IVP SCH (10:18)
[2022-03-22] MEDS: VIT-B COMP/VIT-C/FOLIC ACID 1 TAB PO SCH (10:19)
[2022-03-22] MEDS: EPOETIN ALFA-EPBX 10,000 UNITS/ML VIAL SUBQ SCH (10:19)
--- NOTE | 2022-03-22 10:30 | NUR ---
RECEIVED REPORT FROM SARA ROONEY. FOLLOWED UP WITH DIALYSIS.
--- NOTE | 2022-03-22 10:30 | NUR ---
RECEIVED REPORT FROM SARA ROONEY. FOLLOWED UP WITH DIALYSIS NURSE, THEY ARE AWARE BUT NO ETA
--- NOTE | 2022-03-22 11:28 | NUR ---
WOUND CARE RE-EVALUATION NOTE: PT. IS AWAKE ALERT, ABLE TO TURN AND REPOSITION WITH ONE PERSON ASSIST, DENY OF PAIN. POC DISCUSSED WITH PRIMARY RN. S/P CHEST TUBE REMOVAL YESTERDAY. NO COMPLICATIONS. WILL CONTINUE WOUND CARE INTERVENTIONS ORDERED. -INCONTINENT ASSOCIATE DERMATITIS (IAD) RESOLVED -PRESSURE INJURY STAGE 3, SACROCOCCYX CONTINUE TO RESURFACING 3X2CM, SUPERFICIAL DEPTH WOUND BED IS 100% PINK TISSUE, MOIST, NO ODOR, CHARLENE-WOUND SKIN DRY AND INTACT -PRESSURE INJURY UN-STAGEABLE, LEFT HEEL 5X5.5CM WOUND BED IS RED 10% LIGHT BROWN SLOUGH TISSUE, 90% RED GRANULATING TISSUE SMALL AMOUNT SEROUS DRAINAGE, NO ODOR, CHARLENE WOUND SKIN MUSHY AND INTACT
[2022-03-22] MEDS: THERAHONEY WOUND DRESSING TP SCH (13:17)
--- NOTE | 2022-03-22 14:04 | NUR ---
DIALYSIS NURSE AND FAMILY AT BEDSIDE. PT TO BE DISCHARGED AFTER HD COMPLETE AND STABLE. ALL SAFETY MEASURES IN PLACE
[2022-03-22 16:00] VITALS: BP 172/75
[2022-03-22] MEDS: ACETAMINOPHEN 325 MG TAB PO PRN (16:40)
--- NOTE | 2022-03-22 16:40 | NUR ---
TEMPERATURE 100.4 NOTED. PRN ADMINISTERED PER MD ORDER AND ICE PACK APPLIED. FAMILY AT BEDSIDE WAITING TO DC PT
--- NOTE | 2022-03-22 17:46 | NUR ---
REASSESSED TEMP AFTER INTERVENTIONS. TEMP 98.3 Addendum: 03/22/22 at 1748 by Lauren Smith RN RN BP ELEVATED 172/75, WILL ADMINISTER ANTIHYPERTENSIVE PER MD MERINO
[2022-03-22 17:58] VITALS: BP 172/75
[2022-03-22] MEDS: hydrALAZINE 20 MG/ML VIAL IVP PRN (17:58)
--- NOTE | 2022-03-22 18:20 | NUR ---
PT DC HOME WITH FAMILY IN PRIVATE VEHICLE. ALL SAFETY MEASURES IN PLACE. IV REMOVED, CANULA INTACT. ALL PERSONAL BELONGINGS IN POSSESSION
== END 2022-03-22 18:20 | disposition home health service (06) | DRG 721 ==
LOC: MED 15:46 → MTU 17:12 → MIC 18:21 → MTU 02-26 19:00 → MIC 03-08 03:43 → MTU 03-14 20:14
PROVIDERS: ADMIT Student in an Organized Health Care Education/Training Program; ATTEND Student in an Organized Health Care Education/Training Program
PROC: 5A1D70Z Performance of Urinary Filtration, Intermittent, Less than 6 Hours Per Day (ICD-10-PCS; 2022-02-22)
PROC: 5A12012 Performance of Cardiac Output, Single, Manual (ICD-10-PCS; 2022-02-23)
PROC: 5A1945Z Respiratory Ventilation, 24-96 Consecutive Hours (ICD-10-PCS; 2022-02-23)
PROC: 0BH17EZ Insertion of Endotracheal Airway into Trachea, Via Natural or Artificial Opening (ICD-10-PCS; 2022-02-23)
PROC: 5A1D70Z Performance of Urinary Filtration, Intermittent, Less than 6 Hours Per Day (ICD-10-PCS; 2022-02-24)
PROC: 0JPT3XZ Removal of Tunneled Vascular Access Device from Trunk Subcutaneous Tissue and Fascia, Percutaneous Approach (ICD-10-PCS; 2022-02-25)
PROC: 02PYX3Z Removal of Infusion Device from Great Vessel, External Approach (ICD-10-PCS; 2022-02-25)
PROC: 0JH63XZ Insertion of Tunneled Vascular Access Device into Chest Subcutaneous Tissue and Fascia, Percutaneous Approach (ICD-10-PCS; 2022-03-01)
PROC: 02HV33Z Insertion of Infusion Device into Superior Vena Cava, Percutaneous Approach (ICD-10-PCS; 2022-03-01)
PROC: B5181ZA Fluoroscopy of Superior Vena Cava using Low Osmolar Contrast, Guidance (ICD-10-PCS; 2022-03-01)
PROC: 5A1D70Z Performance of Urinary Filtration, Intermittent, Less than 6 Hours Per Day (ICD-10-PCS; 2022-03-01)
PROC: 5A1D70Z Performance of Urinary Filtration, Intermittent, Less than 6 Hours Per Day (ICD-10-PCS; 2022-03-02)
PROC: 5A1D70Z Performance of Urinary Filtration, Intermittent, Less than 6 Hours Per Day (ICD-10-PCS; 2022-03-03)
PROC: 0W9B3ZZ Drainage of Left Pleural Cavity, Percutaneous Approach (ICD-10-PCS; 2022-03-04)
PROC: 5A1D70Z Performance of Urinary Filtration, Intermittent, Less than 6 Hours Per Day (ICD-10-PCS; 2022-03-04)
PROC: 5A1D70Z Performance of Urinary Filtration, Intermittent, Less than 6 Hours Per Day (ICD-10-PCS; 2022-03-06)
PROC: 5A1955Z Respiratory Ventilation, Greater than 96 Consecutive Hours (ICD-10-PCS; principal; 2022-03-08)
PROC: 0BH17EZ Insertion of Endotracheal Airway into Trachea, Via Natural or Artificial Opening (ICD-10-PCS; 2022-03-08)
PROC: 0W9B30Z Drainage of Left Pleural Cavity with Drainage Device, Percutaneous Approach (ICD-10-PCS; 2022-03-08)
PROC: 0B9D8ZX Drainage of Right Middle Lung Lobe, Via Natural or Artificial Opening Endoscopic, Diagnostic (ICD-10-PCS; 2022-03-08)
PROC: 5A1D70Z Performance of Urinary Filtration, Intermittent, Less than 6 Hours Per Day (ICD-10-PCS; 2022-03-08)
PROC: 5A1D70Z Performance of Urinary Filtration, Intermittent, Less than 6 Hours Per Day (ICD-10-PCS; 2022-03-11)
PROC: 5A1D70Z Performance of Urinary Filtration, Intermittent, Less than 6 Hours Per Day (ICD-10-PCS; 2022-03-14)
PROC: 5A1D70Z Performance of Urinary Filtration, Intermittent, Less than 6 Hours Per Day (ICD-10-PCS; 2022-03-16)
PROC: 5A1D70Z Performance of Urinary Filtration, Intermittent, Less than 6 Hours Per Day (ICD-10-PCS; 2022-03-18)
PROC: 5A1D70Z Performance of Urinary Filtration, Intermittent, Less than 6 Hours Per Day (ICD-10-PCS; 2022-03-20)
PROC: 5A1D70Z Performance of Urinary Filtration, Intermittent, Less than 6 Hours Per Day (ICD-10-PCS; 2022-03-22)
DX: T80.211A Bloodstream infection due to central venous catheter, initial encounter (principal); A41.81 Sepsis due to Enterococcus; J96.01 Acute respiratory failure with hypoxia; J69.0 Pneumonitis due to inhalation of food and vomit; E43 Unspecified severe protein-calorie malnutrition; D63.1 Anemia in chronic kidney disease; L89.629 Pressure ulcer of left heel, unspecified stage; I46.9 Cardiac arrest, cause unspecified; I13.2 Hypertensive heart and chronic kidney disease with heart failure and with stage 5 chronic kidney disease, or end stage renal disease; J91.8 Pleural effusion in other conditions classified elsewhere; R65.20 Severe sepsis without septic shock; N18.6 End stage renal disease; E11.22 Type 2 diabetes mellitus with diabetic chronic kidney disease; Z99.2 Dependence on renal dialysis; Z20.822 Contact with and (suspected) exposure to COVID-19; Y83.8 Other surgical procedures as the cause of abnormal reaction of the patient, or of later complication, without mention of misadventure at the time of the procedure; Y92.098 Other place in other non-institutional residence as the place of occurrence of the external cause; I50.9 Heart failure, unspecified; Z68.1 Body mass index [BMI] 19.9 or less, adult; H54.8 Legal blindness, as defined in USA; E11.621 Type 2 diabetes mellitus with foot ulcer; L97.422 Non-pressure chronic ulcer of left heel and midfoot with fat layer exposed
CPT/HCPCS: 31500; 36415; 36600; 51702; 71045; 71250; 71275; 73610; 73630; 76604; 76700; 76705; 76942; 77012; 80048; 80053; 80076; 80170; 80202; 80305; 81001; 82140; 82150; 82550; 82553; 82803; 82945; 82948; 83605; 83615; 83690; 83735; 83874; 83880; 84100; 84157; 84484; 85025; 85379; 85610; 85730; 87040; 87070; 87075; 87081; 87086; 87186; 87205; 87635-QW; 89051; 89220; 92526; 92950; 93005; 93925; 93970; 94002; 94003; 94640; 94660; 96374; 97110; 97112; 97116; 97163-GP; 97164; 97530; 99291; A4649; C9113; G0480; G0482; J0171; J0290; J0330; J0360; J0610; J1200; J1580; J1642; J1644; J1815; J2001; J2185; J2250; J2270; J2405; J2543; J2704; J3010; J3370; J3490; J7060; Q0092; Q5106; Q9967